=== PATIENT | female | born 1975 | race Caucasian/White ===

== ENCOUNTER 2021-07-06 12:18 | Emergency (ER) | payer OTHER, SELFPAY ==
[2021-07-06] VITALS (15 sets, daily range): BP systolic 122–158; BP diastolic 77–88; PULSE 56–76; RESP 12–26; TEMP 37; O2SAT 96–100
--- NOTE | 2021-07-06 12:15 | RT.EKG_ITS ---
APPROVED REPORT Exam: Resting ECG Reason for Exam: palpitations Patient Location: E HR:63 bpm ECG Measurements Heart Rate 63 AXIS KS 165 P 32 QRSd 115 QRS -8 QT 445 T 8 QTc 458 Conclusion Sinus rhythm...normal P axis, V-rate 60- 99 Nonspecific intraventricular conduction delay...QRSd >115mS, not LBBB/RBBB. Sinus. No STEMI. I have reviewed and interpreted ECG and agree with software generated interpretation.
[2021-07-06 13:00] LABS: Abs Immature Grans 0.03 10^3/uL (0.0-0.06); Absolute Basophil Count 0.04 10^3/uL (0.0-0.2); Absolute Eosinophil Count 0.18 10^3/uL (0.0-0.7); Absolute Lymphocyte Count 2.65 10^3/uL (1.2-3.4); Absolute Monocyte Count 0.53 10^3/uL (0.1-0.8); Absolute Neutrophil Count 6.23 10^3/uL (1.2-6.7); Basophils % 0.4; Eosinophils % 1.9; HCT 39.9 % (36.0-46.0); HGB 12.2 g/dL (11.2-15.7); Immature Grans % 0.3; Lymphocytes % 27.4; MCH 25.3 pg (27.0-33.0); MCHC 30.6 % (32.0-36.0); MCV 82.8 fL (80-95); MPV 9.3 fL (8.0-11.0); Monocytes % 5.5; Neutrophils % 64.5; Nucleated RBC 0 %; Platelet Count 293 10^3/uL (130-400); RBC 4.82 10^6/uL (3.93-5.22); RDW 14.3 % (11.7-14.6); RDW-SD 43.2 fL; WBC 9.66 10^3/uL (4.4-10.8)
[2021-07-06 13:15] LABS: ALT 21 U/L (14-59); AST 13 U/L (15-37); Albumin 3.8 g/dL (3.4-5.0); Alkaline Phosphatase 94 U/L (46-116); Anion Gap 8.5 mmol/L (3-11); BUN 9 mg/dL (7-18); Bilirubin, Total 0.4 mg/dL (0.2-1.0); CO2 25.5 mmol/L (21.0-32.0); CREATININE 0.9 mg/dL (0.55-1.02); Calcium 8.7 mg/dL (8.5-10.1); Chloride 103 mmol/L (98-107); Glucose 84 mg/dL (74-106); Magnesium 2.2 mg/dL (1.8-2.4); Potassium 3.4 mmol/L (3.5-5.1); Sodium 137 mmol/L (136-145); Total Protein 7.8 g/dL (6.4-8.2); Troponin I < 50 ng/L (<or=60)
--- NOTE | 2021-07-06 13:45 | ED.GENADUL_ITS ---
Discharge Plan Disposition Patient Disposition: HOME Condition: Improving Discharge Details Clinical Impression: Anxiety attack, Medication refill Primary Care Provider: Unknown,Unknown ED Provider: Edison Villanueva Home Meds and New Rx's Prescriptions: Continued tramadol 50 mg Tablet 50 mg PO QID 0RF gabapentin 100 mg Capsule 100 mg PO BID 0RF metoprolol succinate 25 mg Tablet Extended Release 24 Hr 10 mg PO BID 0RF calcium carbonate-vitamin D2 600 mg calcium- 200 unit Tablet 600 tab PO DAILY 0RF topiramate 15 mg Capsule, Sprinkle 15 mg PO BID 0RF calcium phos,dibas-vitamin D3 77-400 mg-unit Tablet 500 tab PO DAILY 0RF amlodipine 5 mg Tablet 7.5 mg PO DAILY Qty: 30 1RF lisinopril 10 mg Tablet 10 mg PO DAILY Qty: 30 1RF Discharge Instructions Instructions: Anxiety (ED) Additional Instructions: Please take medications as discussed and feel free to return to the emergency department for any new or worsening symptoms. Also if you notice any persistent symptoms that do not resolve quickly also return to the emergency department. At this time your EKG does not show emergent findings and your blood work was otherwise nondiagnostic. Your potassium was slightly low so please increase potassium rich foods in your diet. Keep your appointment with your primary care provider on the . Referrals: [facility] [[email or web address]] [Provider Group] Discharge Data Discharge Date/Time-TO BE ENTERED AT DEPARTURE: 07/06/21 14:10 Medical Decision Making Medical Records Medical records narrative: Patient presenting to the emergency department with chief complaint of palpitations. Patient reports this occurred 6 hours ago and feels persistent. She does report that she has recently moved here and is slowly running out of her medications due to inability to arrange follow-up with primary care locally. She has been weaning herself off of her tramadol and baclofen but has ran out of some of her blood pressure medication. She does state stress seem to have brought on situation this morning when he has history of anxiety. Physical exam is unremarkable for any acute findings. Cardiac exam shows mild hypertension but regular pulse. After further discussion I suspect this being more anxiety but will draw labs. Labs were drawn and show negative troponin and otherwise unremarkable work-up. Given duration of symptoms I do not feel that repeat troponin is needed given that I highly doubt ACS. Returned to reassess patient and states full resolution of symptoms and confirms my suspicion that this is anxiety as she states that with further thought she does state this feels more like anxiety. I do feel this is reassuring and that patient is safe for discharge. Blood pressure medication was refilled and given that patient wants to wean off of baclofen and tramadol did discuss safe weaning of medication. Close monitoring of symptoms along with return and follow-up precautions were discussed. Lab Data Labs: Laboratory Tests Range/Units 07/06/21 07/06/21 12:38 12:38 WBC (4.4-10.8) 10^3/uL 9.66 RBC (3.93-5.22) 10^6/uL 4.82 Hgb (11.2-15.7) g/dL 12.2 Hct (36.0-46.0) % 39.9 MCV (80-95) fL 82.8 MCH (27.0-33.0) pg 25.3 L MCHC (32.0-36.0) % 30.6 L RDW (11.7-14.6) % 14.3 Plt Count (130-400) 10^3/uL 293 MPV (8.0-11.0) fL 9.3 Immature Gran % 0.3 Neutrophils % 64.5 Lymphocytes % 27.4 Monocytes % 5.5 Eosinophils % 1.9 Basophils % 0.4 Nucleated RBC % % 0 Absolute Neutrophils (1.2-6.7) 10^3/uL 6.23 Absolute Lymphocytes (1.2-3.4) 10^3/uL 2.65 Absolute Monocytes (0.1-0.8) 10^3/uL 0.53 Absolute Eosinophils (0.0-0.7) 10^3/uL 0.18 Absolute Basophils (0.0-0.2) 10^3/uL 0.04 Sodium (136-145) mmol/L 137 Potassium (3.5-5.1) mmol/L 3.4 L Chloride (98-107) mmol/L 103 Carbon Dioxide (21.0-32.0) mmol/L 25.5 Anion Gap (3-11) mmol/L 8.5 BUN (7-18) mg/dL 9 Creatinine (0.55-1.02) mg/dL 0.9 Estimated GFR/1.73 m2 (mL/min/1.73m2) >= 60.00 Glucose (74-106) mg/dL 84 Calcium (8.5-10.1) mg/dL 8.7 Magnesium (1.8-2.4) mg/dL 2.2 Total Bilirubin (0.2-1.0) mg/dL 0.4 AST (15-37) U/L 13 L ALT (14-59) U/L 21 Alkaline Phosphatase (46-116) U/L 94 Troponin I (<or=60) ng/L < 50 Total Protein (6.4-8.2) g/dL 7.8 Albumin (3.4-5.0) g/dL 3.8 ECG Data Interpretation: Please see attending physician's note for full interpretation of EKG. Sinus rhythm with no signs of STEMI was noted. HPI General Mode of arrival: ambulatory . Date/Time Provider Initiated Documentation: 07/06/21 12:32 . Limitations to Documentation: no limitations . Information obtained by: patient . History of Present Illness 45 year old F presents to the emergency department with the chief complaint of palpations, described as moderate, Quality is described as other (denies pain), Patient reports no radiation. Patient started experiencing this hour(s) (6) and it has been constant. improves with No relieving factors improve symptom(s), Medication worsens symptoms (withdrawl? ) and Other factors that worsen symptoms (Stress) . Patient notes denies chest pain and shortness of breath. Patient did receive the following treatments prior to arrival, none Related Data Home Medications Medication Instructions Recorded Confirmed amlodipine 5 mg tablet 7.5 mg PO DAILY #30 tab 07/06/21 calcium carb-ergocalciferol (vit 600 tab PO DAILY 07/06/21 07/06/21 D2) 600 mg calcium-200 unit tablet calcium phosphate,dibasic 77 500 tab PO DAILY 07/06/21 07/06/21 mg-vitamin D3 400 unit tablet gabapentin 100 mg capsule 100 mg PO BID 07/06/21 07/06/21 lisinopril 10 mg tablet 10 mg PO DAILY #30 tab 07/06/21 metoprolol succinate 25 mg 10 mg PO BID 07/06/21 07/06/21 tablet,extended release 24 hr topiramate 15 mg sprinkle capsule 15 mg PO BID 07/06/21 07/06/21 tramadol 50 mg tablet 50 mg PO QID 07/06/21 07/06/21 Previous Rx's Medication Instructions Recorded amlodipine 5 mg tablet 7.5 mg PO DAILY #30 tab 07/06/21 lisinopril 10 mg tablet 10 mg PO DAILY #30 tab 07/06/21 Allergies Allergy/AdvReac Type Severity Reaction Status Date / Time Sulfa (Sulfonamide AdvReac Unverified 07/06/21 12:31 Antibiotics) General Stated Complaint: Palpitatns DELL: 2 Review of Systems Constitutional Constitutional: Denies chills, Denies fever(s) and Denies malaise Cardiovascular Cardiovascular: Reports as per HPI, Denies chest pain, Denies chest pain with activity, Denies syncope, Reports rapid heart rate, Denies irregular heart rhythm, Denies lightheadedness, Reports palpitations and Denies dyspnea Respiratory Respiratory: Denies cough, Denies hemoptysis and Denies dyspnea Gastrointestinal Gastrointestinal: Denies abdominal pain, Denies nausea and Denies vomiting Musculoskeletal Musculoskeletal: Reports tingling Neurologic Neurologic: Denies syncope and Reports tingling Psychiatric Psychiatric: Denies anxiety Endocrine Endocrine: Denies cold intolerance, Denies heat intolerance and Reports palpitations PFSH All Active Problems (Updated 07/06/21 @ 13:49 by Edison Villanueva NP) Anxiety attack (Acute) Medication refill (Acute) Social History Smoking/Tobacco Use Status: Current every day Tobacco Type: cigarettes Smoking risk assessment performed?: Yes Alcohol Intake: never Drug use: Never Substance use type: does not use Do you feel safe at home: Yes Do you feel safe in your relationship?: Yes Exam Const General: cooperative, no acute distress, not diaphoretic and not ill appearing Nutritional Appearance: overweight Orientation: alert, awake and oriented x3 Limitations: mental status not altered Neck Neck: normal visual inspection, full ROM, trachea midline, supple and no anterior neck swelling Thyroid: thyroid normal Carotids: normal carotid upstroke and no bruits Resp Effort & Inspection: normal respiratory effort and able to speak in complete sentences Auscultation: clear to auscultation bilaterally Cardio Palpation: normal PMI Rate: regular rate Rhythm: regular rhythm Heart Sounds: S1 normal, S2 normal, no click, no gallops, no murmurs and no rubs Bruits: no abdominal aortic bruits and no carotid bruits Pulses: radial pulses present bilaterally 2+ GI Inspection: normal to inspection Palpation: soft, no aortic enlargement, no pulsatile masses and nontender Auscultation: normal bowel sounds Skin General skin exam: no rashes or lesions noted Neuro General: patient alert, patient awake, patient oriented x3, tone normal and moves all extremities Course Vital Signs Vital signs: Vital Signs Temperature 37.0 C 07/06/21 12:25 Pulse 73 07/06/21 12:25 Respiratory Rate 24 07/06/21 12:25 Pulse Oximetry 100 07/06/21 12:25 Temperature 37.0 C 07/06/21 12:25 Temperature Source Temporal Artery Scan 07/06/21 12:25 Pulse 73 07/06/21 12:25 Respiratory Rate 24 07/06/21 12:25 Respiratory Effort Non-Labored 07/06/21 12:32 Blood Pressure Position Supine 07/06/21 12:25 Pulse Oximetry 100 07/06/21 12:25 Oxygen Delivery Method Room Air 07/06/21 12:25 Oxygen Flow Rate 0 07/06/21 12:25 Pain Level 0 07/06/21 12:25 Lab/Test Results Lab/Test Results: Laboratory Tests Range/Units 07/06/21 07/06/21 12:38 12:38 WBC (4.4-10.8) 10^3/uL 9.66 RBC (3.93-5.22) 10^6/uL 4.82 Hgb (11.2-15.7) g/dL 12.2 Hct (36.0-46.0) % 39.9 MCV (80-95) fL 82.8 MCH (27.0-33.0) pg 25.3 L MCHC (32.0-36.0) % 30.6 L RDW (11.7-14.6) % 14.3 Plt Count (130-400) 10^3/uL 293 MPV (8.0-11.0) fL 9.3 Immature Gran % 0.3 Neutrophils % 64.5 Lymphocytes % 27.4 Monocytes % 5.5 Eosinophils % 1.9 Basophils % 0.4 Nucleated RBC % % 0 Absolute Neutrophils (1.2-6.7) 10^3/uL 6.23 Absolute Lymphocytes (1.2-3.4) 10^3/uL 2.65 Absolute Monocytes (0.1-0.8) 10^3/uL 0.53 Absolute Eosinophils (0.0-0.7) 10^3/uL 0.18 Absolute Basophils (0.0-0.2) 10^3/uL 0.04 Sodium (136-145) mmol/L 137 Potassium (3.5-5.1) mmol/L 3.4 L Chloride (98-107) mmol/L 103 Carbon Dioxide (21.0-32.0) mmol/L 25.5 Anion Gap (3-11) mmol/L 8.5 BUN (7-18) mg/dL 9 Creatinine (0.55-1.02) mg/dL 0.9 Estimated GFR/1.73 m2 (mL/min/1.73m2) >= 60.00 Glucose (74-106) mg/dL 84 Calcium (8.5-10.1) mg/dL 8.7 Magnesium (1.8-2.4) mg/dL 2.2 Total Bilirubin (0.2-1.0) mg/dL 0.4 AST (15-37) U/L 13 L ALT (14-59) U/L 21 Alkaline Phosphatase (46-116) U/L 94 Troponin I (<or=60) ng/L < 50 Total Protein (6.4-8.2) g/dL 7.8 Albumin (3.4-5.0) g/dL 3.8
== END 2021-07-06 14:10 | disposition home or self-care (01) ==
PROVIDERS: Emergency Provider Nurse Practitioner Family
DX: F41.9 Anxiety disorder, unspecified (principal); R00.2 Palpitations; R06.02 Shortness of breath
CPT/HCPCS: 80053; 93005; 99283; 83735; 84484; 85025; 93010

== ENCOUNTER 2021-11-07 15:11 | Outpatient (REF) | payer OTHER, SELFPAY ==
[2021-11-07 14:05] LABS: HCT 39.8 % (36.0-46.0); HGB 12.4 g/dL (11.2-15.7); MCH 24.6 pg (27.0-33.0); MCHC 31.2 % (32.0-36.0); MCV 79 fL (80-95); MPV 9.6 fL (8.0-11.0); Platelet Count 280 10^3/uL (130-400); RBC 5.05 10^6/uL (3.93-5.22); RDW 16.8 % (11.7-14.6); RDW-SD 47.7 fL; WBC 8.36 10^3/uL (4.4-10.8)
[2021-11-07 14:44] LABS: ALT 13 U/L (14-59); AST 22 U/L (15-37); Albumin 3.5 g/dL (3.4-5.0); Alkaline Phosphatase 91 U/L (46-116); Anion Gap 10.7 mmol/L (3-11); BUN 9 mg/dL (7-18); Bilirubin, Total 0.2 mg/dL (0.2-1.0); CO2 21.3 mmol/L (21.0-32.0); CREATININE 0.8 mg/dL (0.55-1.02); Calcium 8.3 mg/dL (8.5-10.1); Calculated LDL 113 mg/dL (<100); Chloride 109 mmol/L (98-107); Cholesterol 180 mg/dL (<200); Glucose 98 mg/dL (74-106); HDL Cholesterol 42 mg/dL (40-60); Sodium 141 mmol/L (136-145); TSH (W/Ref FT4) 3.64 uIU/mL (0.36-3.74); Triglyceride 125 mg/dL (<150)
== END 2021-11-07 15:12 | disposition home or self-care (01) ==
LOC: NCHCN 15:11
PROVIDERS: Visit Provider Family Medicine
DX: I10 Essential (primary) hypertension (principal); F33.1 Major depressive disorder, recurrent, moderate; G89.4 Chronic pain syndrome
CPT/HCPCS: 80053; 80061; 85027; 84443

== ENCOUNTER 2021-12-16 18:51 | Emergency (ER) | payer OTHER, SELFPAY ==
[2021-12-16] VITALS (58 sets, daily range): BP systolic 116–158; BP diastolic 75–114; PULSE 59–78; RESP 11–21; TEMP 37.2; O2SAT 96–100
--- NOTE | 2021-12-16 18:45 | RT.EKG_ITS ---
APPROVED REPORT Exam: Resting ECG Reason for Exam: chest pain Patient Location: E HR:72 bpm ECG Measurements Heart Rate 72 AXIS NE 152 P 36 QRSd 111 QRS 0 QT 429 T 3 QTc 469 Conclusion Sinus rhythm...normal P axis, V-rate 60- 99
--- NOTE | 2021-12-16 19:15 | DI.RAD_ITS ---
Exam(s) XR CHEST 2V PA LATERAL EXAM: XR CHEST 2V PA LATERAL CLINICAL HISTORY: Chest Pain TECHNIQUE: 2D digital imaging was performed of the chest. Two images were obtained. PA and lateral views were obtained. COMPARISON: No exams were available for comparison FINDINGS: MEDIASTINUM: Normal. HEART: Normal. PULMONARY VASCULATURE: Normal. LUNGS: There is a nodule in the right middle lobe probably reflecting a calcified granuloma. The travis gs are otherwise clear. PLEURAL SPACE: No pleural effusion or pneumothorax. BONE:Within normal limits for the patient's age. OTHER FINDINGS:Normal. IMPRESSION: 1. No acute pulmonary findings. 2. Probable calcified granuloma in the right middle lobe. Noncontrast CT scan of the chest may be ob tained for further confirmation. DATA REPOSITORY: RADIATION DOSE DELIVERED:
[2021-12-16 19:20] LABS: Abs Immature Grans 0.01 10^3/uL (0.0-0.06); Absolute Basophil Count 0.07 10^3/uL (0.0-0.2); Absolute Eosinophil Count 0.15 10^3/uL (0.0-0.7); Absolute Monocyte Count 0.55 10^3/uL (0.1-0.8); Absolute Neutrophil Count 4.52 10^3/uL (1.2-6.7); Basophils % 0.8; Eosinophils % 1.7; HCT 40.9 % (36.0-46.0); HGB 12.8 g/dL (11.2-15.7); Immature Grans % 0.1; Lymphocytes % 40.4; MCH 24.4 pg (27.0-33.0); MCHC 31.3 % (32.0-36.0); MCV 78 fL (80-95); MPV 8.9 fL (8.0-11.0); Monocytes % 6.2; Neutrophils % 50.8; Platelet Count 305 10^3/uL (130-400); RBC 5.24 10^6/uL (3.93-5.22); RDW 17.1 % (11.7-14.6); RDW-SD 48.2 fL
--- NOTE | 2021-12-16 19:28 | W.ED.GENAD ---
Discharge Plan Disposition Patient Disposition: HOME Condition: Stable Discharge Details Clinical Impression: Chest pain Primary Care Provider: Unknown,Unknown ED Provider: Ellyn Westbrook Home Meds and New Rx's Prescriptions: Continued tramadol 50 mg Tablet 50 mg PO QID gabapentin 100 mg Capsule 100 mg PO BID metoprolol succinate 25 mg Tablet Extended Release 24 Hr 10 mg PO BID calcium carbonate-vitamin D2 600 mg calcium- 200 unit Tablet 600 tab PO DAILY topiramate 15 mg Capsule, Sprinkle 15 mg PO BID calcium phos,dibas-vitamin D3 77-400 mg-unit Tablet 500 tab PO DAILY amlodipine 5 mg Tablet 7.5 mg PO DAILY Qty: 30 1RF lisinopril 10 mg Tablet 10 mg PO DAILY Qty: 30 1RF venlafaxine 75 mg Tablet 75 mg PO DAILY meloxicam 7.5 mg Tablet 7.5 mg PO DAILY Discharge Instructions Instructions: Chest Pain (ED) Additional Instructions: At this time it does not appear that You are having an acute cardiac event. However I would like you to be seen by cardiology and for an outpatient stress test which was ordered. Please take a chewable baby aspirin daily. Please return to the ER for any worsening chest pain chest, shortness of breath or any concerns. Follow up with primary care provider in 3-5 days. Return to ED sooner if any worsening or concerns. Increase oral fluids. Referrals: Parminder Rivera MD [ NON-[facility] STAFF PHYSICIAN] - 5 days Samaria Jeronimo MD [ [facility] STAFF PHYSICIAN] - 2 weeks (Stress test results, and Angina) Medical Decision Making 45-year-old female presents to the ER with chief complaint of left-sided chest pain that began this morning followed by intermittent chest tightening which she describes as a bandlike around her chest with radiation down her left arm. EKG was reviewed by Dr. Dixon ER attending, old EKG available for review, no significant change. Please see his official report. Cardiac work-up ordered including serial troponins, chest x-ray, proBNP due to leg swelling, D-dimer. 324 mg aspirin. Differential diagnosis includes but not limited to coronary artery disease, OH, NSTEMI, CHF, PE, anxiety, GERD 2030: Patient reevaluation, she reports no recurrent CP during her stay here. Discussed negative work-up thus far. Initial troponin within normal limits, D-dimer within normal limits. Patient does have hypovolemic hypochromic anemia which appears to be chronic. Hemoglobin hematocrit within normal limits Patient has remained chest pain-free during her stay here, serial troponins within normal limits. No significant changes to ECG. Patient's heart score is approximately 3-4. At this time I do feel it is safe for patient to be discharged home we will place a referral to cardiology and order a stress test I did discuss patient taking chewable baby aspirin daily she verbalized understanding. I discussed strict return instructions and follow-up care. This text was generated using [employer] system, please disregard any oddities of phrase or misspellings. Medical Records Medical records reviewed: Yes I reviewed the patient's medical records. Imaging Data Radiologic Study: Imaging: X-Ray Radiologist's impression: Imaging protocol: Radiologic exam of the chest. Views: 2 views. COMPARISON: No relevant prior studies available. FINDINGS: Lungs: Right lower lobe calcified granuloma. Pleural spaces: Unremarkable. No pleural effusion. No pneumothorax. Heart/Mediastinum: Unremarkable. No cardiomegaly. Vasculature: Mild aortic ectasia. Bones/joints: Unremarkable. IMPRESSION: Old granulomatous change. No evidence for acute abnormality in the chest. Thank you for allowing us to participate in the care of your patient. Dictated and Authenticated by: Annmarie Gu MD Lab Data Lab results reviewed: Yes I reviewed the patient's lab results. Labs: Laboratory Tests Range/Units 12/16/21 12/16/21 12/16/21 17:13 19:13 19:13 WBC (4.4-10.8) 10^3/uL 8.90 RBC (3.93-5.22) 10^6/uL 5.24 H Hgb (11.2-15.7) g/dL 12.8 Hct (36.0-46.0) % 40.9 MCV (80-95) fL 78 L MCH (27.0-33.0) pg 24.4 L MCHC (32.0-36.0) % 31.3 L RDW (11.7-14.6) % 17.1 H Plt Count (130-400) 10^3/uL 305 MPV (8.0-11.0) fL 8.9 Immature Gran % 0.1 Neutrophils % 50.8 Lymphocytes % 40.4 Monocytes % 6.2 Eosinophils % 1.7 Basophils % 0.8 Nucleated RBC % (0.0-0.3) % 0.0 Absolute Neutrophils (1.2-6.7) 10^3/uL 4.52 Absolute Lymphocytes (1.2-3.4) 10^3/uL 3.60 H Absolute Monocytes (0.1-0.8) 10^3/uL 0.55 Absolute Eosinophils (0.0-0.7) 10^3/uL 0.15 Absolute Basophils (0.0-0.2) 10^3/uL 0.07 D-Dimer (<500) ng/mlFEU Sodium (136-145) mmol/L 140 Potassium (3.5-5.1) mmol/L 3.6 Chloride (98-107) mmol/L 106 Carbon Dioxide (21.0-32.0) mmol/L 27.5 Anion Gap (3-11) mmol/L 6.5 BUN (7-18) mg/dL 9 Creatinine (0.55-1.02) mg/dL 0.9 Estimated GFR/1.73 m2 (mL/min/1.73m2) >= 60.00 Glucose (74-106) mg/dL 83 Calcium (8.5-10.1) mg/dL 8.8 Magnesium (1.8-2.4) mg/dL 2.3 Total Bilirubin (0.2-1.0) mg/dL 0.2 AST (15-37) U/L 11 L ALT (14-59) U/L 21 Alkaline Phosphatase (46-116) U/L 81 Troponin I (<or=60) ng/L < 50 NT-Pro-B Natriuret Pep (<300) pg/mL 139 Total Protein (6.4-8.2) g/dL 7.8 Albumin (3.4-5.0) g/dL 3.6 Range/Units 12/16/21 12/16/21 19:13 22:19 WBC (4.4-10.8) 10^3/uL RBC (3.93-5.22) 10^6/uL Hgb (11.2-15.7) g/dL Hct (36.0-46.0) % MCV (80-95) fL MCH (27.0-33.0) pg MCHC (32.0-36.0) % RDW (11.7-14.6) % Plt Count (130-400) 10^3/uL MPV (8.0-11.0) fL Immature Gran % Neutrophils % Lymphocytes % Monocytes % Eosinophils % Basophils % Nucleated RBC % (0.0-0.3) % Absolute Neutrophils (1.2-6.7) 10^3/uL Absolute Lymphocytes (1.2-3.4) 10^3/uL Absolute Monocytes (0.1-0.8) 10^3/uL Absolute Eosinophils (0.0-0.7) 10^3/uL Absolute Basophils (0.0-0.2) 10^3/uL D-Dimer (<500) ng/mlFEU 295 Sodium (136-145) mmol/L Potassium (3.5-5.1) mmol/L Chloride (98-107) mmol/L Carbon Dioxide (21.0-32.0) mmol/L Anion Gap (3-11) mmol/L BUN (7-18) mg/dL Creatinine (0.55-1.02) mg/dL Estimated GFR/1.73 m2 (mL/min/1.73m2) Glucose (74-106) mg/dL Calcium (8.5-10.1) mg/dL Magnesium (1.8-2.4) mg/dL Total Bilirubin (0.2-1.0) mg/dL AST (15-37) U/L ALT (14-59) U/L Alkaline Phosphatase (46-116) U/L Troponin I (<or=60) ng/L < 50 NT-Pro-B Natriuret Pep (<300) pg/mL Total Protein (6.4-8.2) g/dL Albumin (3.4-5.0) g/dL HPI General Mode of arrival: ambulatory. Date/Time Provider Initiated Documentation: 12/16/21 18:55. Limitations to Documentation: no limitations. Information obtained by: patient, RN notes reviewed and old records reviewed. HPI Narrative: 45-year-old female presents to the ER with chief complaint of left-sided chest pain that began this morning followed by intermittent chest tightening which she describes as a bandlike around her chest with radiation down her left arm. She reports blood pressure Was elevated 190/100 at 3:30 PM. She reports some nausea, mild shortness of breath denies any cough. She denies any chest pain upon initial exam. Past medical history includes hypertension,depression, Rajni-Danlos syndrome. Related Data Home Medications Medication Instructions Recorded Confirmed amlodipine 5 mg tablet 7.5 mg PO DAILY #30 tabs 07/06/21 12/16/21 calcium carb-ergocalciferol (vit 600 tab PO DAILY 07/06/21 12/16/21 D2) 600 mg calcium-200 unit tablet calcium phosphate,dibasic 77 500 tab PO DAILY 07/06/21 12/16/21 mg-vitamin D3 400 unit tablet gabapentin 100 mg capsule 100 mg PO BID 07/06/21 12/16/21 lisinopril 10 mg tablet 10 mg PO DAILY #30 tabs 07/06/21 12/16/21 metoprolol succinate 25 mg 10 mg PO BID 07/06/21 12/16/21 tablet,extended release 24 hr topiramate 15 mg sprinkle capsule 15 mg PO BID 07/06/21 12/16/21 tramadol 50 mg tablet 50 mg PO QID 07/06/21 12/16/21 meloxicam 7.5 mg tablet 7.5 mg PO DAILY 12/16/21 12/16/21 venlafaxine 75 mg tablet 75 mg PO DAILY 12/16/21 12/16/21 Previous Rx's Medication Instructions Recorded amlodipine 5 mg tablet 7.5 mg PO DAILY #30 tabs 07/06/21 lisinopril 10 mg tablet 10 mg PO DAILY #30 tabs 07/06/21 Allergies Allergy/AdvReac Type Severity Reaction Status Date / Time Sulfa (Sulfonamide AdvReac Unverified 12/16/21 19:00 Antibiotics) General Stated Complaint: Chest Pain DELL: 2 Review of Systems All systems reviewed & are unremarkable except as noted in HPI and below Cardiovascular Cardiovascular: Denies acrocyanosis, Reports chest pain, Reports chest pain at rest, Reports leg edema (Intermittently no edema noted on exam), Reports radiating jaw, neck or arm pain and Reports dyspnea Respiratory Respiratory: Denies change in phlegm color, Denies cough, Denies hemoptysis, Reports dyspnea and Denies wheezing Gastrointestinal Gastrointestinal: Denies abdominal pain, Denies hematochezia, Reports heartburn, Reports diarrhea, Reports nausea and Denies vomiting Allergic/Immunologic Allergic/Immunologic: Denies wheezing PFSH All Active Problems (Updated 12/16/21 @ 23:16 by Ellyn Westbrook NP) Chest pain (Acute) Hypertension (Chronic) Rajni-Danlos syndrome (Acute) Social History Smoking/Tobacco Use Status: Current every day Tobacco Type: cigarettes Smoking risk assessment performed?: Yes Alcohol Intake: never Drug use: Never Substance use type: does not use Do you feel safe at home: Yes Do you feel safe in your relationship?: Yes Exam Narrative Exam Narrative: Constitutional: Alert and oriented x3. Appears stated age. Obese l body habitus. Head: Normocephalic, no trauma. Eyes: Pupils PERRL, Red reflex noted, EOM's intact. Eyelids symmetrical without lesions, discharge, or swelling. ENT: Bilateral TM's WNL, External ear normal to inspection, no mastoid TTP, swelling, or erythema, Nasal turbinates WNL, no nasal discharge. Normal dentition, Posterior pharynx WNL, no exudate. Chest: RRR, Normal S1, S2, distal pulses intact. Resp: Lungs clear to auscultation bilaterally, no wheezes, rales, or rhonchi. Abdomen: Soft, non-distended, Normoactive bowel sounds all 4 quads. Musculoskeletal: Normal gait, 5/5 strength to all four extremities. Skin: No suspicious rashes or lesions. Capillary refill less than 2 sec. Neurologic: Cranial nerves II-XII intact. Alert and oriented x 3. Motor: No deficits noted. Sensory: Intact bilaterally all 4 extremities. Reflexes: DTR's intact bilaterally.. Hematologic/Lymphatic: No ecchymosis, no lymphadenopathy. Course Vital Signs Vital signs: Vital Signs Temperature 37.2 C 12/16/21 18:54 Pulse 77 12/16/21 18:54 Respiratory Rate 18 12/16/21 18:54 Pulse Oximetry 100 12/16/21 18:54 Temperature 37.2 C 12/16/21 18:54 Temperature Source Skin 12/16/21 18:54 Pulse 72 12/16/21 19:16 Pulse 71 12/16/21 19:16 Respiratory Rate 14 12/16/21 19:16 Respiratory Effort Non-Labored 12/16/21 19:03 Respiratory Depth Normal 12/16/21 18:58 Respiratory Pattern Normal 12/16/21 18:58 Blood Pressure 148/98 H 12/16/21 19:16 Blood Pressure Mean 110 12/16/21 19:16 Blood Pressure Position Supine 12/16/21 18:54 Pulse Oximetry 98 12/16/21 19:16 Oxygen Delivery Method Room Air 12/16/21 18:54 Oxygen Flow Rate 0 12/16/21 18:54 Pain Level 1 12/16/21 18:58 Lab/Test Results Lab/Test Results: Laboratory Tests Range/Units 12/16/21 19:13 WBC (4.4-10.8) 10^3/uL 8.90 RBC (3.93-5.22) 10^6/uL 5.24 H Hgb (11.2-15.7) g/dL 12.8 Hct (36.0-46.0) % 40.9 MCV (80-95) fL 78 L MCH (27.0-33.0) pg 24.4 L MCHC (32.0-36.0) % 31.3 L RDW (11.7-14.6) % 17.1 H Plt Count (130-400) 10^3/uL 305 MPV (8.0-11.0) fL 8.9 Immature Gran % 0.1 Neutrophils % 50.8 Lymphocytes % 40.4 Monocytes % 6.2 Eosinophils % 1.7 Basophils % 0.8 Nucleated RBC % (0.0-0.3) % 0.0 Absolute Neutrophils (1.2-6.7) 10^3/uL 4.52 Absolute Lymphocytes (1.2-3.4) 10^3/uL 3.60 H Absolute Monocytes (0.1-0.8) 10^3/uL 0.55 Absolute Eosinophils (0.0-0.7) 10^3/uL 0.15 Absolute Basophils (0.0-0.2) 10^3/uL 0.07
[2021-12-16] MEDS: Aspirin 81 MG CHEW 324 MG CH (19:39)
[2021-12-16 19:50] LABS: ALT 21 U/L (14-59); AST 11 U/L (15-37); Albumin 3.6 g/dL (3.4-5.0); Alkaline Phosphatase 81 U/L (46-116); Anion Gap 6.5 mmol/L (3-11); BUN 9 mg/dL (7-18); Bilirubin, Total 0.2 mg/dL (0.2-1.0); CO2 27.5 mmol/L (21.0-32.0); CREATININE 0.9 mg/dL (0.55-1.02); Calcium 8.8 mg/dL (8.5-10.1); Chloride 106 mmol/L (98-107); Glucose 83 mg/dL (74-106); Magnesium 2.3 mg/dL (1.8-2.4); Potassium 3.6 mmol/L (3.5-5.1); Sodium 140 mmol/L (136-145); Total Protein 7.8 g/dL (6.4-8.2); Troponin I < 50 ng/L (<or=60)
[2021-12-16 19:53] LABS: NT-proBNP 139 pg/mL (<300)
[2021-12-16 20:07] LABS: D-Dimer 295 ng/mlFEU (<500)
--- NOTE | 2021-12-16 20:11 | DI.VRAD_ITS ---
PROCEDURE INFORMATION: Exam: XR Chest Exam date and time: 12/16/2021 7:55 PM Age: 45 years old Clinical indication: Chest wall pain; Additional info: Chest pain TECHNIQUE: Imaging protocol: Radiologic exam of the chest. Views: 2 views. COMPARISON: No relevant prior studies available. FINDINGS: Lungs: Right lower lobe calcified granuloma. Pleural spaces: Unremarkable. No pleural effusion. No pneumothorax. Heart/Mediastinum: Unremarkable. No cardiomegaly. Vasculature: Mild aortic ectasia. Bones/joints: Unremarkable. IMPRESSION: Old granulomatous change. No evidence for acute abnormality in the chest. Dictated and Authenticated by: Annmarie Gu MD. Ordering:MINESH Ragland MD
--- NOTE | 2021-12-16 20:15 | RT.EKG_ITS ---
APPROVED REPORT Exam: Resting ECG Reason for Exam: Repeat Patient Location: E HR:61 bpm ECG Measurements Heart Rate 61 AXIS OH 159 P 48 QRSd 117 QRS 7 QT 463 T 3 QTc 467 Conclusion Sinus rhythm...normal P axis, V-rate 60- 99 Physician: no stemi, t waves are unchanged from earlier ekg
[2021-12-16 22:51] LABS: Troponin I < 50 ng/L (<or=60)
[2021-12-17] VITALS: PULSE 68; RESP 13; O2SAT 97
[2021-12-17 00:01] VITALS: BP 126/87; PULSE 64; PULSE 65; RESP 16; O2SAT 96
[2021-12-17 00:10] VITALS: PULSE 76; RESP 12; O2SAT 97
--- NOTE | 2021-12-17 00:12 | NUR.NOTE ---
Regular Exercise Treadmill Test req faxed to DI, referral to [facility] Cardiology faxed for appt to be scheduled after Stress Test.Nursing Note:
[2021-12-17 00:14] VITALS: TEMP 36.8
[2021-12-17 00:23] VITALS: BP 126/87; PULSE 64; RESP 12; TEMP 36.8; O2SAT 97
== END 2021-12-17 00:25 | disposition home or self-care (01) ==
PROVIDERS: Emergency Provider Registered Nurse Emergency
DX: R07.89 Other chest pain (principal); R22.40 Localized swelling, mass and lump, unspecified lower limb; D50.9 Iron deficiency anemia, unspecified; E66.9 Obesity, unspecified; I10 Essential (primary) hypertension; F32.9 Major depressive disorder, single episode, unspecified; F17.210 Nicotine dependence, cigarettes, uncomplicated; Z79.899 Other long term (current) drug therapy
CPT/HCPCS: 36415; 80053; 81025; 93005; 99284; 71046; 83735; 83880; 84484; 85025; 85379; 93010; 99285

== ENCOUNTER → 2022-01-02 00:03 | Outpatient (CLI) | payer OTHER, SELFPAY ==
--- NOTE | 2022-01-02 13:02 | DI.MAMMO_ITS ---
Exam(s) MAMMO SCREENING EXAM: MAMMO SCREENING CLINICAL HISTORY: SCREENING, Z12.31 TECHNIQUE: Mammograms were interpreted according to the usual protocol including computer analysis w [employer] CAD system, tomosynthesis and C-view imaging. COMPARISON: [facility] from 04/16/2020 from [facility] FINDINGS: The breasts are composed of scattered fibroglandular densities, Breast Density category B. No suspicious masses or suspicious microcalcifications are seen. No skin thickening or abnormal axillary lymph nodes are seen. There has been no significant change from prior exams. IMPRESSION: BI-RADS Category 1, Negative mammogram Yearly screening mammography is recommended. Breast Density - Category B, scattered fibroglandular densities. A negative radiographic report should not delay biopsy if a dominant or clinically suspicious mass is present. Up to ten percent of cancers are not identified on mammography. A negative report may reinforce clinical impression. Adenosis and dense breasts may obscure an underlying neoplasm. False positive reports average 6 to 10%. Patient will receive a letter notifying them of these results.
== END ==
PROVIDERS: Visit Provider Family Medicine
DX: Z12.31 Encounter for screening mammogram for malignant neoplasm of breast (principal)
CPT/HCPCS: 77063; 77067

== ENCOUNTER → 2022-01-06 00:53 | Outpatient (CLI) | payer OTHER, SELFPAY ==
--- NOTE | 2022-01-06 09:00 | ETT_ITS ---
APPROVED REPORT Exam: Exercise Treadmill Patient Location: Out-Patient Room/Bed: Ordering Provider:JENNIFER MISHRA, Contact Number: [phone] BMI: 38.68 Baseline Rhythm: Sinus Rhythm Comment: Resting ST abnormality lead III Indications: Angina Medical History Medical History: Hypertension, obesity, mild asthma, current tobacco use, chest pain Cardiac Medications: Metoprolol succinate, amlodipine, lisinopril, gabapentin, meloxicam, venlafaxine Allergies: Sulfa antibiotics Cardiac Risk Factors: Hypertension, obesity, asthma, smoker (current), family hx Previous Cardiac Procedures: None Pretest Chest Pain Characteristics: None Exercise History: Sedentary Physical Disabilities: None Lung Sounds: Clear to auscultation Heart Sounds: Regular Stress Test Details Test: Exercise stress testing was performed using a Antonio protocol. Rest Stress HR Resting HR Supine: 75 bpm Max Heart Rate (APMHR): 174 bpm Resting HR Standin bpm Target HR (85% APMHR): 147 bpm Max HR Achieved: 140 bpm % of APMHR: 80 Recovery HR: 79 bpm HR response to stress: Normal HR response to stress Comment: Nondiagnostic- THR not achieved. Metoprolol succinate last dose was yesterday PM. BP Resting BP Supine: 124/88 mmHg Resting BP Standin/90 mmHg Max BP: 176/82 mmHg Recovery BP: 114/78 mmHg BP response to stress: Normal blood pressure response to stress. ECG Resting ECG: Sinus Rhythm Ectopy: None Comment: Resting ST abnormality lead III Stress ECG: Sinus Tachycardia ST Change: Nondiagnostic low heart rate, No significant ST segment changes noted Arrhythmia: None Recovery ECG: Sinus Rhythm Recovery ST Change: Nondiagnostic low heart rate, No significant ST segment changes noted Recovery Arrhythmia: None Clinical Reason for Termination: Dyspnea Stress Symptoms: General Fatigue, Dyspnea Exercise duration: 5 min01 sec Highest Stage Reached: Stage 2: 2.5 mph at 12% grade. Exercise capacity: 7.05 METs Angina Score: None Britton Treadmill Score: 4.8 Rate Pressure Product: 20800 Stress ECG Conclusion 1. Resting electrocardiogram was within normal limits 2. Patient exercised on the Antonio protocol completed a workload of 7.05 METS, stopping due to fatigue and dyspnea. No chest pain was described 3. Normal hemodynamic response to exercise. Peak heart rate achieved was 80% of predicted for age 4. At that level of heart rate and workload, there was no electrocardiographic evidence of myocardial ischemia 5. There were no dysrhythmias Britton Treadmill Score is 4.8 which is Moderate risk. Stress Test Summary STAGE Time (mins) Speed (mph) Grade (%) HR BP SpO2 SYMPTOMS METS Supine 75 124/88 Standing 83 128/90 98% 1 3 1.7 10 118 132/82 96% 4.5 2 6 2.5 12 138 96% Severe SOB 7 1 min recovery 118 176/82 98% Moderate SOB 3 min recovery 83 140/80 98% Mild SOB 6 min recovery 79 114/78 98% SOB resolved Pt reported sudden severe SOB during second stage of Antonio protocol and requested termination of test . SOB resolved by minute 4 of recovery.
== END ==
PROVIDERS: Visit Provider Registered Nurse Emergency
DX: I20.9 Angina pectoris, unspecified (principal)
CPT/HCPCS: 93017

== ENCOUNTER 2022-03-13 16:01 | Outpatient (REF) | payer OTHER, SELFPAY ==
[2022-03-13 19:18] LABS: Abs Immature Grans 0.02 10^3/uL (0.0-0.06); Absolute Basophil Count 0.04 10^3/uL (0.0-0.2); Absolute Eosinophil Count 0.15 10^3/uL (0.0-0.7); Absolute Lymphocyte Count 3.23 10^3/uL (1.2-3.4); Absolute Monocyte Count 0.55 10^3/uL (0.1-0.8); Absolute Neutrophil Count 4.34 10^3/uL (1.2-6.7); Basophils % 0.5; Eosinophils % 1.8; HCT 35.5 % (36.0-46.0); HGB 10.9 g/dL (11.2-15.7); Immature Grans % 0.2; Lymphocytes % 38.8; MCHC 30.7 % (32.0-36.0); MCV 78 fL (80-95); MPV 9.6 fL (8.0-11.0); Monocytes % 6.6; Neutrophils % 52.1; Platelet Count 308 10^3/uL (130-400); RBC 4.54 10^6/uL (3.93-5.22); RDW-SD 45.7 fL; WBC 8.33 10^3/uL (4.4-10.8)
[2022-03-13 19:36] LABS: ALT 19 U/L (14-59); AST 19 U/L (15-37); Albumin 3.5 g/dL (3.4-5.0); Alkaline Phosphatase 65 U/L (46-116); Anion Gap 7.1 mmol/L (3-11); BUN 14 mg/dL (7-18); Bilirubin, Total 0.2 mg/dL (0.2-1.0); CO2 29.9 mmol/L (21.0-32.0); Chloride 103 mmol/L (98-107); Estimated GFR 70.36 (mL/min/1.73m2); Glucose 80 mg/dL (74-106); Potassium 3.1 mmol/L (3.5-5.1); Sodium 140 mmol/L (136-145); TSH (W/Ref FT4) 3.53 uIU/mL (0.36-3.74); Total Protein 7.5 g/dL (6.4-8.2)
== END 2022-03-13 16:02 | disposition home or self-care (01) ==
LOC: NCHCN 16:01
PROVIDERS: Visit Provider Family Medicine
DX: R53.83 Other fatigue (principal); M54.12 Radiculopathy, cervical region
CPT/HCPCS: 80053; 84443; 85025

== ENCOUNTER 2022-03-24 20:13 | Outpatient (REF) | payer OTHER, SELFPAY ==
[2022-03-24 22:22] LABS: D-Dimer 410 ng/mlFEU (<500)
== END 2022-03-24 20:14 | disposition home or self-care (01) ==
LOC: LBN 20:13
PROVIDERS: Visit Provider Nurse Practitioner Family
DX: M25.572 Pain in left ankle and joints of left foot (principal)
CPT/HCPCS: 85379

== ENCOUNTER 2022-04-22 02:49 | Outpatient (CLI) | payer OTHER, SELFPAY ==
--- NOTE | 2022-04-22 | DI.MRI_ITS ---
Exam(s) MR CERVICAL SPINE WO EXAM: MR CERVICAL SPINE WO CLINICAL HISTORY: CERVICAL RADICULOPATHY, M54.12 TECHNIQUE: Multiplanar multisequence MRI of the cervical spine was performed without intravenous con trast. COMPARISON: No prior plain films available for comparison. FINDINGS: CERVICOMEDULLARY JUNCTION: Intact with no evidence of cerebellar tonsillar ectopia. No obvious abnor mality of the odontoid process. No evidence of Chiari 1 malformation. CERVICAL SPINAL CORD: There is no abnormal signal in the cervical spinal cord and no evidence of foca l cord atrophy nor focal cord swelling. OSSEOUS:There are no cervical fractures evident. No significant osseous lesions in the cervical vert ebrae. There is straightening of the cervical curvature which is probably related to muscle spasm. INDIVIDUAL LEVELS: C2-3: No disc herniation nor central canal stenosis. No foraminal stenosis. No facet arthropathy. C3-4: Normal disc height. There is a small posterolateral right disc protrusion which extends inside sales assistant iorly 2 millimeters and is approximately 5 millimeters wide. Slightly indents the thecal sac but not the spinal cord. Central canal dimensions are within normal limits. No foraminal stenosis on eithe r side at this level. Also no significant facet arthropathy. C4-5: Moderate decreased disc height. There is relatively symmetrical annular bulging which indents the anterior thecal sac but not the spinal cord and there is no abnormal signal in the cord at this l evel. No dominant disc herniation. No significant facet arthropathy.No obvious foraminal stenosis. C5-6: Moderate decreased disc height and signal. Annular bulging both left and right sided. Small r ight-sided Luschka joint osteophytes. Bulging annulus indents the thecal sac and contacts the anteri or cord. Mild central canal stenosis. There is a posterior-lateral right disc-osteophyte complex wi th mild right-sided foraminal stenosis. No left-sided foraminal stenosis. C6-7: Normal disc height. No disc herniation or central canal stenosis. No foraminal stenosis at th is level. No nephritic facet arthropathy. C7-T1: No disc herniation nor central canal stenosis. No facet arthropathy.No foraminal stenosis. IMPRESSION: 1. Findings at C 3-4, C4-5, and C5-6 levels as described above. 2. No abnormal signal in the cervical spinal cord. 3. Straightening of the cervical spine noted which is probably due to chronic muscle spasm. DATA REPOSITORY:
== END 2022-04-22 03:09 ==
LOC: DI 02:49
PROVIDERS: Visit Provider Family Medicine
DX: M54.12 Radiculopathy, cervical region (principal); M50.31 Other cervical disc degeneration, high cervical region; M50.321 Other cervical disc degeneration at C4-C5 level; M50.322 Other cervical disc degeneration at C5-C6 level; M62.838 Other muscle spasm
CPT/HCPCS: 72141

== ENCOUNTER 2022-05-15 15:58 | Outpatient (REF) | payer OTHER, SELFPAY ==
[2022-05-15 18:19] LABS: HCT 39.2 % (36.0-46.0); MCH 24.9 pg (27.0-33.0); MCHC 30.6 % (32.0-36.0); MCV 81 fL (80-95); MPV 9.9 fL (8.0-11.0); Platelet Count 279 10^3/uL (130-400); RBC 4.82 10^6/uL (3.93-5.22); RDW 19.9 % (11.7-14.6); RDW-SD 58.2 fL; WBC 7.78 10^3/uL (4.4-10.8)
[2022-05-15 18:45] LABS: Ferritin 39 ng/mL (8-252)
== END 2022-05-15 15:59 | disposition home or self-care (01) ==
LOC: NCHCN 15:58
PROVIDERS: PCP Family Medicine; Visit Provider Family Medicine
DX: G47.33 Obstructive sleep apnea (adult) (pediatric) (principal); D64.9 Anemia, unspecified
CPT/HCPCS: 85027; 82728

== ENCOUNTER 2022-08-14 16:50 | Emergency (ER) | payer OTHER, SELFPAY ==
[2022-08-14] VITALS (12 sets, daily range): BP systolic 108–127; BP diastolic 63–74; PULSE 65–78; RESP 14–20; TEMP 36.6; O2SAT 94–98
--- NOTE | 2022-08-14 17:04 | ED.GENADUL_ITS ---
Discharge Plan Disposition Patient Disposition: Home Condition: Stable Discharge Details Clinical Impression: Hypokalemia Primary Care Provider: Parminder Rivera ED Provider: Twin Katz [place] Meds and New Rx's Prescriptions: New lisinopril 20 mg tablet 20 mg PO DAILY Qty: 30 0RF Continued omeprazole 20 mg capsule,delayed release(DR/EC) 20 mg PO DAILY gabapentin 300 mg capsule 600 mg PO BID Rx Instructions: take 2 tabs in the morning, two tabs in the afternoon and 3 tabs at night. famotidine 10 mg tablet 10 mg PO DAILY topiramate 50 mg tablet 50 mg PO BID Systane Complete 0.6 % drops 1 drp ophthalmic (eye) DAILY PRN loteprednol etabonate 0.5 % drops,gel 1 drp ophthalmic (eye) QID Rx Instructions: start 24 hours after surgery rizatriptan 10 mg tablet See Rx Instructions PO .COMPLEX Rx Instructions: take 1 tab at onset of headache; if no relief may repeat 1 tab after at least 2 hrs; max = 3 tabs/24 hr PO venlafaxine 150 mg capsule,extended release 24hr 150 mg PO DAILY metoprolol tartrate 50 mg tablet 50 mg PO BID epinephrine 0.3 mg/0.3 mL auto-injector 0.3 mg IM Q5-15M PRN Rx Instructions: do not exceed 3 doses per episode Adult 50 Plus Probiotic 4 billion cell capsule See Rx Instructions .ROUTE .COMPLEX PRN Rx Instructions: as needed B-complex with vitamin C Tablet 1 tab PO DAILY cholecalciferol (vitamin D3) 25 mcg (1,000 unit) capsule 25 mcg PO DAILY amlodipine 10 mg tablet 10 mg PO DAILY Ca carbonate-mag oxide-vit C 400 mg calcium -117 mg-167 mg tablet See Rx Instructions .ROUTE .COMPLEX Rx Instructions: unknown dose; diclofenac sodium 1 % gel 2 g topical QID Rx Instructions: apply to single elbow, wrist or hand; for hand includes palm/fingers/back of hand acetaminophen 325 mg tablet 325 mg PO ONCE PRN mupirocin 2 % ointment 1 applic topical BID ketoconazole 2 % cream 1 applic topical DAILY tramadol 50 mg Tablet 50 mg PO QID meloxicam 7.5 mg Tablet 7.5 mg PO DAILY PRN Discontinued lisinopril-hydrochlorothiazide 20-25 mg tablet 1 tab PO DAILY Discharge Instructions Instructions: Hypokalemia (ED) Additional Instructions: You were seen in the emergency department for your cold symptoms. Your viral swab was negative for flu, influenza, and RSV. Your chest x-ray showed no sign of pneumonia. Your EKG and your blood work showed no sign of a heart attack. Your potassium was found to be quite low. Please discontinue taking your lisinopril?hydrochlorothiazide. Instead please begin taking just lisinopril which has been sent electronically to your pharmacy. Please follow-up with your primary care provider for reassessment next week. Please return to the emergency department if you develop chest pain shortness of breath weakness or dizziness. Medical Decision Making This is an overall well-appearing normothermic and not tachycardic 46-year-old female with URI symptoms and chest squeezing concerning for viral URI and ACS based on the patient's history of hypertension elevated BMI. Will obtain ECG and troponin. If initial troponin is negative and ECG is nonischemic will be reassured against ACS given the patient's lack of risk factors and the duration of time since her symptoms began earlier this morning. Patient is PERC negative so I did not send a D-dimer. If her troponin is negative she will have a heart score of 2 based on her 2 risk factors and her nonischemic ECG and one-point secondary to her age at 46. No rash to chest to suggest zoster. No fevers to suggest pneumonia and patient has a nonfocal lung exam. She has no significant wheezes nor any history of COPD to suggest COPD exacerbation. No tearing quality to chest discomfort to suggest aortic dissection. No pain out of proportion to suggest necrotizing soft tissue infection. We will swab for flu, COVID, and RSV. No abdominal tenderness to suggest intra-abdominal infection. No epigastric pain to suggest pancreatitis. Will reassess following labs and two-view chest x-ray. 7 PM Potassium returned critically low at 2.8. Patient will receive oral and IV repletion along with 2 g of magnesium. We will plan on redrawing potassium. She was able to tolerate p.o. in the emergency department. She is on li sinopril?hydrochlorothiazide which certainly could be contributing to her hypokalemia which is worse today but has been low in the past. I told the patient that I was not sure that her hypokalemia was the cause of her symptoms however advised her to follow-up with her primary care provider concerning her lisinopril?hydrochlorothiazide. We will have her discontinue this until she is seen next week by her primary care provider. I have ordered the patient for lisinopril without hydrochlorothiazide. 8:45 PM I have asked health community outreach coordinator Pia to arrange for the patient to have primary care follow-up within the week. We will also have patient's potassium rechecked on 08/16/2022. 10 PM Patient tolerated p.o. in ED without any vomiting. She had no significant arrhythmias on telemetry. Her repeat potassium was 11 PM Potassium improved to 3.4. Patient discharged. Chronic conditions affecting the care of the patient: Hypertension and hydrochlorothiazide use History obtained from an outside historian: Patient's External record review: N/A Diagnostic interpretations performed by me: [Per my independent interpretation chest x-ray shows:] No acute infiltrate [Per my independent interpretation EKG shows:] Normal sinus rhythm at a rate of 65. Left axis deviation no signs of LVH. MN within normal limits. Interventricular conduction delay similar to prior. Prior dated last year. QTc within normal limits. Persistent T wave inversion in lead III. No ST segment abnormalities. No acute injury pattern. Appears similar to prior. Medications: Oral and IV potassium repletion Social determinants of health affecting disposition: N/A Management discussed with: N/A Treatment/interventions considered: Hospitalization for monitoring Response to therapies provided: [] HPI General Date/Time Provider Initiated Documentation: 08/14/22 17:03 . HPI Narrative: This is a 46-year-old female with a history of JOSE, hypertension, and elevated BMI in the emergency department in the setting of chest congestion. Patient reports that several weeks ago she had cold symptoms. This initially felt improved but subsequently came back this morning with worsening cough and rhinorrhea. Patient does feel slightly short of breath. She says that there are multiple sick contacts in her house. She tested negative at home for COVID. She was concerned as her home pulse oximeter showed an oxygen saturation on room air at 90%. She is a daily tobacco user but denies routine ethanol and illicits. She is also felt a spasm in her lungs. This is associate with a tightness in her chest. She denies any family history of premature coronary artery disease. She is not on any oral contraceptive pills and she denies PE and DVT history. She has not had any ear pain sore throat nor any fevers but she does endorse nausea. Related Data Home Medications Medication Instructions Recorded Confirmed tramadol 50 mg tablet 50 mg PO QID 07/06/21 08/14/22 meloxicam 7.5 mg tablet 7.5 mg PO DAILY PRN 12/16/21 08/14/22 B-complex with vitamin C 1 tab PO DAILY 04/14/22 08/14/22 cholecalciferol (vitamin D3) 25 25 mcg PO DAILY 04/14/22 08/14/22 mcg (1,000 unit) capsule epinephrine 0.3 mg/0.3 mL 0.3 mg IM Q5-15M PRN 04/14/22 08/14/22 injection, auto-injector famotidine 10 mg tablet 10 mg PO DAILY 04/14/22 08/14/22 gabapentin 300 mg capsule 600 mg PO BID 04/14/22 08/14/22 lactobacillus combination no.9 4 See Rx Instructions .Route 04/14/22 08/14/22 billion cell capsule (Adult 50 .COMPLEX PRN Plus Probiotic) loteprednol etabonate 0.5 % eye 1 drp ophthalmic (eye) QID 04/14/22 08/14/22 gel drops metoprolol tartrate 50 mg tablet 50 mg PO BID 04/14/22 08/14/22 omeprazole 20 mg capsule,delayed 20 mg PO DAILY 04/14/22 08/14/22 release propylene glycol 0.6 % eye drops 1 drp ophthalmic (eye) DAILY PRN 04/14/22 08/14/22 (Systane Complete) rizatriptan 10 mg tablet See Rx Instructions PO .COMPLEX 04/14/22 08/14/22 topiramate 50 mg tablet 50 mg PO BID 04/14/22 08/14/22 venlafaxine 150 mg 150 mg PO DAILY 04/14/22 08/14/22 capsule,extended release 24 hr acetaminophen 325 mg tablet 325 mg PO ONCE PRN 05/05/22 08/14/22 amlodipine 10 mg tablet 10 mg PO DAILY 05/05/22 08/14/22 calcium carb-magnesium oxide-vit C See Rx Instructions .Route .COMPLEX 05/05/22 08/14/22 400 mg calcium-117 mg-167 mg tablet diclofenac sodium 1 % topical gel 2 g topical QID 05/05/22 08/14/22 ketoconazole 2 % topical cream 1 applic topical DAILY 05/05/22 mupirocin 2 % topical ointment 1 applic topical BID 05/05/22 08/14/22 lisinopril 20 mg tablet 20 mg PO DAILY #30 tabs 08/14/22 Previous Rx's Medication Instructions Recorded lisinopril 20 mg tablet 20 mg PO DAILY #30 tabs 08/14/22 Allergies Allergy/AdvReac Type Severity Reaction Status Date / Time adhesive tape Allergy Severe Verified 04/14/22 09:32 corn Allergy Severe Verified 04/14/22 09:32 COVID-19 (SARS-CoV-2) Allergy Severe Verified 04/14/22 09:32 vaccine, robert peanut Allergy Severe Verified 04/14/22 09:32 watermelon Allergy Severe Verified 04/14/22 09:32 wheat Allergy Severe Verified 04/14/22 09:32 latex Allergy Verified 05/04/22 16:31 General Stated Complaint: RespSymp DELL: 4 PFSH All Active Problems (Updated 08/14/22 @ 20:41 by Twin Katz MD) Hypokalemia (Acute) Chronic pain syndrome (Chronic) Hypertension (Chronic) Rajni-Danlos syndrome (Acute) Medical History Anxiety Cervical radiculopathy Chiari I malformation Chronic low back pain without sciatica Degenerative disc disease, cervical Degenerative disc disease, lumbar Essential hypertension Fatigue GERD (gastroesophageal reflux disease) Incontinence in female Intractable chronic migraine without aura Major depression JOSE (obstructive sleep apnea) Pain, joint, ankle, left Tobacco use Social History Smoking/Tobacco Use Status: Current every day Tobacco Type: cigarettes Smoking risk assessment performed?: Yes Alcohol Intake: never Drug use: Never Substance use type: does not use Do you feel safe at home: Yes Do you feel safe in your relationship?: Yes Exam Narrative Exam Narrative: General: Well-appearing in no acute distress speaking in complete sentences. Head: Normocephalic, atraumatic Ear, nose, mouth, throat: Grossly normal inspection. Normal voice, handling secretions normally. Neck: Trachea midline. Cardiovascular: Well-perfused distal extremities. Regular rate and rhythm. No murmurs. Respiratory: Nonlabored respiration. Clear lungs bilaterally. Gastrointestinal: Nondistended abdomen. Musculoskeletal: No edema. Moving all 4 extremities spontaneously. No calf tenderness. Skin: Normal for age and race, grossly normal temperature and turgor. No acute rash. Neurologic: Alert and appropriate, no apparent acute deficits. Psychiatric: Mood and manner are appropriate. Grooming and personal hygiene are appropriate. Course Vital Signs Vital signs: Vital Signs Temperature 36.6 C 08/14/22 16:55 Pulse 78 08/14/22 16:55 Respiratory Rate 20 08/14/22 16:55 Blood Pressure 127/72 08/14/22 16:55 Pulse Oximetry 97 08/14/22 16:55 Temperature 36.6 C 08/14/22 16:55 Temperature Source Skin 08/14/22 16:55 Pulse 78 08/14/22 16:55 Respiratory Rate 20 08/14/22 16:55 Blood Pressure 127/72 08/14/22 16:55 Blood Pressure Position Sitting 08/14/22 16:55 Pulse Oximetry 97 08/14/22 16:55 Oxygen Delivery Method Room Air 08/14/22 16:55 Oxygen Flow Rate 0 08/14/22 16:55
--- NOTE | 2022-08-14 17:15 | RT.EKG_ITS ---
APPROVED REPORT Exam: Resting ECG Reason for Exam: chest pain/sob Patient Location: E HR:65 bpm ECG Measurements Heart Rate 65 AXIS IL 167 P 32 QRSd 113 QRS -2 QT 449 T 11 QTc 466 Conclusion Sinus rhythm...normal P axis, V-rate 60- 99 Normal sinus rhythm at a rate of 65. Left axis deviation no signs of LVH. IL within normal limits. Interventricular conduction delay similar to prior. Prior dated last year. QTc within normal limit s. Persistent T wave inversion in lead III. No ST segment abnormalities. No acute injury pattern. Appears similar to prior.
--- NOTE | 2022-08-14 17:15 | DI.RAD_ITS ---
Exam(s) XR CHEST 2V PA LATERAL EXAM: XR CHEST 2V PA LATERAL CLINICAL HISTORY: Shortness of breath TECHNIQUE: 2D digital imaging was performed. COMPARISON: CR,XR XR CHEST 2V PA LATERAL from 12/16/2021 FINDINGS: HEART: Normal size. Aorta: Not dilated. Mildly tortuous. PULMONARY VASCULATURE: Normal. LUNGS: Clear. Calcified granuloma right middle lobe again noted. PLEURAL SPACE: No pleural effusion or pneumothorax. BONE:Unremarkable for age. IMPRESSION: No acute abnormality. DATA REPOSITORY: RADIATION DOSE DELIVERED:
[2022-08-14 18:11] LABS: COVID-19 PCR Negative (Negative); Influenza A PCR Negative (Negative); Influenza B PCR Negative (Negative); RSV PCR Negative (Negative)
[2022-08-14 18:15] LABS: Source Nasopharynx
[2022-08-14 18:31] LABS: Abs Immature Grans 0.03 10^3/uL (0.0-0.06); Absolute Basophil Count 0.04 10^3/uL (0.0-0.2); Absolute Eosinophil Count 0.14 10^3/uL (0.0-0.7); Absolute Lymphocyte Count 2.88 10^3/uL (1.2-3.4); Absolute Monocyte Count 0.46 10^3/uL (0.1-0.8); Absolute Neutrophil Count 6.05 10^3/uL (1.2-6.7); Basophils % 0.4; Eosinophils % 1.5; HCT 39.3 % (36.0-46.0); Immature Grans % 0.3; MCH 27.7 pg (27.0-33.0); MCHC 33.1 % (32.0-36.0); MCV 84 fL (80-95); MPV 8.6 fL (8.0-11.0); Monocytes % 4.8; Platelet Count 221 10^3/uL (130-400); RBC 4.69 10^6/uL (3.93-5.22); RDW-SD 42.6 fL
[2022-08-14 18:50] LABS: BUN 17 mg/dL (7-18); Chloride 107 mmol/L (98-107); Estimated GFR 70.36 (mL/min/1.73m2); Glucose 100 mg/dL (74-106); Sodium 143 mmol/L (136-145); Troponin I < 50 ng/L (<or=60)
[2022-08-14 18:56] LABS: Potassium 2.8 mmol/L (3.5-5.1)
--- NOTE | 2022-08-14 19:08 | DI.VRAD_ITS ---
PROCEDURE INFORMATION: Exam: XR Chest Exam date and time: 08/14/2022 6:55 PM Age: 46 years old Clinical indication: Shortness of breath TECHNIQUE: Imaging protocol: Radiologic exam of the chest. Views: 2 views. COMPARISON: CR XR CHEST 2V PA LATERAL 12/16/2021 7:55 PM FINDINGS: Lungs: Benign calcified granuloma again seen in the right lung base. No airspace consolidation. Pleural spaces: No pleural effusion. No pneumothorax. Heart/Mediastinum: No cardiomegaly. Bones/joints: No acute fracture. IMPRESSION: No acute cardiopulmonary pathology. Dictated and Authenticated by: Katelin Perez MD. Ordering:PATY Murcia MD
[2022-08-14] MEDS: MAGNESIUM SULFATE 2 GM/50 ML BAG IVPB (19:30)
[2022-08-14] MEDS: Potassium Bicarbonate/Cit AC 25 MEQ TABLET.EFF 50 MEQ PO (20:20)
[2022-08-14] MEDS: Gabapentin 300 MG CAP 600 MG PO (20:20)
[2022-08-14] MEDS: POTASSIUM CHLORIDE/D5-0.9%NACL 1,000 ML 500 MEQ IV (20:47)
--- NOTE | 2022-08-14 21:02 | NUR.NOTE ---
Referral to [facility] Dr Rivera to f/u week of for Hypokalemia, patient to call [facility] Lab wednesday to have repeat potassium drawn.Nursing Note:
--- NOTE | 2022-08-14 22:01 | NUR.NOTE ---
Nursing Note: Report given to Minerva STEELE
[2022-08-14 22:43] LABS: Anion Gap 6.8 mmol/L (3-11); BUN 14 mg/dL (7-18); CO2 29.2 mmol/L (21.0-32.0); CREATININE 0.9 mg/dL (0.55-1.02); Calcium 8.6 mg/dL (8.5-10.1); Chloride 108 mmol/L (98-107); Estimated GFR 79.85 (mL/min/1.73m2); Glucose 197 mg/dL (74-106); Potassium 3.4 mmol/L (3.5-5.1); Sodium 144 mmol/L (136-145)
--- NOTE | 2022-08-17 09:13 | NUR.NOTE ---
Nursing Note:Accessed patient chart to determine how many EKG orders were in the chart from the ED. There was an outstanding EKG in ordered status. There are no EKG's in the [employer] system that are outstanding. EKG order was deleted.
== END 2022-08-14 23:48 | disposition home or self-care (01) ==
PROVIDERS: Emergency Provider Emergency Medicine; PCP Family Medicine
DX: E87.6 Hypokalemia (principal); I10 Essential (primary) hypertension
CPT/HCPCS: 80048; 87637; 93005; 96365; 96366; 96367; 99284; 71046; 84484; 85025; 93010

== ENCOUNTER 2022-08-17 12:09 | Outpatient (CLI) | payer OTHER, SELFPAY ==
[2022-08-17 09:34] LABS: Potassium 3.6 mmol/L (3.5-5.1)
== END 2022-08-17 12:10 | disposition home or self-care (01) ==
LOC: LBO 12:10
PROVIDERS: PCP Family Medicine; Visit Provider Urology
DX: E87.6 Hypokalemia (principal)
CPT/HCPCS: 36415; 84132

== ENCOUNTER 2022-08-25 18:00 | Outpatient (REF) | payer OTHER, SELFPAY ==
--- NOTE | 2022-08-25 | DI.RAD_ITS ---
Exam(s) XR CHEST 2V PA LATERAL EXAM: XR CHEST 2V PA LATERAL CLINICAL HISTORY: COUGH TECHNIQUE: 2D digital imaging was performed. COMPARISON: CR,XR XR CHEST 2V PA LATERAL from 08/14/2022 FINDINGS: HEART: Normal size. Aorta: Not dilated. PULMONARY VASCULATURE: Normal. LUNGS: Clear. Incidental granuloma right middle lobe. PLEURAL SPACE: No pleural effusion or pneumothorax. BONE:Unremarkable for age. IMPRESSION: No acute abnormality. DATA REPOSITORY: RADIATION DOSE DELIVERED:
--- NOTE | 2022-08-25 19:09 | DI.VRAD_ITS ---
PROCEDURE INFORMATION: Exam: XR Chest Exam date and time: 08/25/2022 6:40 PM Age: 46 years old Clinical indication: Cough and shortness of breath and other: Cough TECHNIQUE: Imaging protocol: Radiologic exam of the chest. Views: 2 views. COMPARISON: CR XR CHEST 2V PA LATERAL 08/14/2022 6:55 PM FINDINGS: Lungs: No consolidation. Hyperdense nodule in the right lower lobe thought to represent a calcified granuloma and is unchanged. Pleural spaces: Unremarkable. No pleural effusion. No pneumothorax. Heart/Mediastinum: Unremarkable. No cardiomegaly. Bones/joints: Unremarkable. IMPRESSION: No acute findings. Dictated and Authenticated by: Josephine Coleman MD. Ordering:BING MARTIN MD
== END 2022-08-25 18:20 ==
LOC: DI 18:00
PROVIDERS: PCP Family Medicine; Visit Provider Nurse Practitioner Family
DX: R05.8 Other specified cough (principal); R91.8 Other nonspecific abnormal finding of lung field
CPT/HCPCS: 71046

== ENCOUNTER 2022-09-02 16:30 | Outpatient (REF) | payer OTHER, SELFPAY ==
[2022-09-02 13:47] LABS: ESR 11 mm/hr (0-20)
[2022-09-02 14:17] LABS: Hemoglobin A1C 6.1 % (<5.7)
[2022-09-02 15:08] LABS: Vitamin B12 309 pg/mL (193-986)
[2022-09-03 13:07] LABS: Albumin 52.6 % (55.8-66.1); Albumin g/dL 3.6 g/dL (3.6-5.2); Total Protein 6.8 g/dL (6.3-8.2)
== END 2022-09-02 16:31 | disposition home or self-care (01) ==
LOC: NCHCN 16:30
PROVIDERS: PCP Family Medicine; Visit Provider Family Medicine
DX: D50.9 Iron deficiency anemia, unspecified (principal); R53.83 Other fatigue; I10 Essential (primary) hypertension; F41.8 Other specified anxiety disorders; G89.4 Chronic pain syndrome; Q79.60 Ehlers-Danlos syndrome, unspecified; Z00.00 Encounter for general adult medical examination without abnormal findings; R73.09 Other abnormal glucose
CPT/HCPCS: 85652; 82607; 83036; 84165

== ENCOUNTER 2022-09-24 13:13 | Emergency (ER) | payer OTHER, SELFPAY ==
[2022-09-24 13:08] VITALS: BP 121/84; PULSE 78; RESP 15; TEMP 37.1; O2SAT 96
--- NOTE | 2022-09-24 13:53 | ED.GENADUL_ITS ---
Discharge Plan Discharge Details Chief Complaint: PsychEval Primary Care Provider: Parminder Rivera ED Provider: Edison Villanueva Home Meds and New Rx's Prescriptions: No Action tramadol 100 mg capsule,ER biphase 24 hr 25-75 100 mg PO DAILY Patient Comments: Pt no longer takes this dose 09/24/22 CT naloxone 4 mg/actuation spray,non-aerosol 4 mg intranasal Q2M PRN Rx Instructions: spray 1 dose into ONE nostril; alternate nostrils w each dose until help arrives albuterol sulfate 90 mcg/actuation HFA aerosol inhaler 2 puff inhalation Q6H PRN prednisone 50 mg tablet 50 mg PO DAILY Patient Comments: RX complete 09/24/22 CT Rx Instructions: 1 tablet every day for 5 days. amoxicillin-pot clavulanate 875-125 mg tablet 1 tab PO BID Patient Comments: Prescription complete 09/24/22 CT omeprazole 20 mg capsule,delayed release(DR/EC) 20 mg PO DAILY famotidine 10 mg tablet 10 mg PO DAILY topiramate 50 mg tablet 50 mg PO BID Systane Complete 0.6 % drops 1 drp ophthalmic (eye) DAILY PRN loteprednol etabonate 0.5 % drops,gel 1 drp ophthalmic (eye) QID Rx Instructions: start 24 hours after surgery rizatriptan 10 mg tablet See Rx Instructions PO .COMPLEX Rx Instructions: take 1 tab at onset of headache; if no relief may repeat 1 tab after at least 2 hrs; max = 3 tabs/24 hr PO venlafaxine 150 mg capsule,extended release 24hr 150 mg PO DAILY metoprolol tartrate 50 mg tablet 50 mg PO BID epinephrine 0.3 mg/0.3 mL auto-injector 0.3 mg IM Q5-15M PRN Rx Instructions: do not exceed 3 doses per episode Adult 50 Plus Probiotic 4 billion cell capsule See Rx Instructions .ROUTE .COMPLEX PRN Rx Instructions: as needed B-complex with vitamin C Tablet 1 tab PO DAILY cholecalciferol (vitamin D3) 25 mcg (1,000 unit) capsule 25 mcg PO DAILY amlodipine 10 mg tablet 10 mg PO DAILY Ca carbonate-mag oxide-vit C 400 mg calcium -117 mg-167 mg tablet See Rx Instructions .ROUTE .COMPLEX Rx Instructions: unknown dose; diclofenac sodium 1 % gel 2 g topical QID Rx Instructions: apply to single elbow, wrist or hand; for hand includes palm/fingers/back of hand acetaminophen 325 mg tablet 325 mg PO ONCE PRN mupirocin 2 % ointment 1 applic topical BID ketoconazole 2 % cream 1 applic topical DAILY gabapentin 300 mg capsule 300 mg PO BID Patient Comments: Pt on different dose 09/24/22 CT tramadol 50 mg Tablet 50 mg PO QID lisinopril 20 mg tablet 20 mg PO DAILY Qty: 30 0RF gabapentin 100 mg Capsule See Rx Instructions .ROUTE .COMPLEX Rx Instructions: Take 2 caps in the AM, 1 cap at noon and 2 caps at HS meloxicam 7.5 mg Tablet 7.5 mg PO DAILY PRN Medical Decision Making <Ellyn Westbrook NP - Last Filed: 09/24/22 15:39> 46-year-old female presents to the ER with chief complaint of suicidal ideation and depression. Patient has a past medical history of hypertension Rajni- Danlos syndrome, Chiari I malformation, thoracic outlet syndrome, chronic pain syndrome, anxiety GERD and major depression. She is a daily smoker. She denies any drugs or alcohol. She reports over the weekend the suicidal ideation which she reports she has often have gotten worse. She does have a plan which she did not describe to me. However triage note says that she has a plan of crashing her car. She is tearful upon arrival. She denies doing anything to harm herself or taking any extra medications over the last couple of days. Medical clearance work-up ordered including CBC CMP TSH Tylenol salicylate urine drug screen and alcohol level. Patient is requesting Tylenol and her afternoon dose of gabapentin which was ordered. Sitter is at bedside, patient is in paper scrubs. Belongings have been collected and she is in the line of sight of nurses station. At this time she is calm and cooperative. CBC shows no leukocytosis, sodium 142 potassium 3.3 TSH within normal limits, Tylenol less than 2, salicylate level is 5.8 which is within the therapeutic range, UDS is negative ethyl alcohol level less than 3.0. 1527: Patient is medically cleared, will page mental health. 15 [id number]: Discussed with any [facility] that patient has already had an evaluation in the community and was sent here for medical clearance and to await placement. We will fax to an EKG as her labs. At this time she is pending voluntary placement. Care is to be handed off to oncoming provider Good Villanueva NP while awaiting placement. Medical Records Medical records reviewed: Yes I reviewed the patient's medical records. Lab Data Lab results reviewed: Yes I reviewed the patient's lab results. Labs: Laboratory Tests Range/Units 09/24/22 09/24/22 09/24/22 14:21 14:45 14:45 WBC (4.4-10.8) 10^3/uL RBC (3.93-5.22) 10^6/uL Hgb (11.2-15.7) g/dL Hct (36.0-46.0) % MCV (80-95) fL MCH (27.0-33.0) pg MCHC (32.0-36.0) % RDW (11.7-14.6) % Plt Count (130-400) 10^3/uL MPV (8.0-11.0) fL Immature Gran % Neutrophils % Lymphocytes % Monocytes % Eosinophils % Basophils % Nucleated RBC % (0.0-0.3) % Absolute Neutrophils (1.2-6.7) 10^3/uL Absolute Lymphocytes (1.2-3.4) 10^3/uL Absolute Monocytes (0.1-0.8) 10^3/uL Absolute Eosinophils (0.0-0.7) 10^3/uL Absolute Basophils (0.0-0.2) 10^3/uL Sodium (136-145) mmol/L 142 Potassium (3.5-5.1) mmol/L 3.3 L Chloride (98-107) mmol/L 107 Carbon Dioxide (21.0-32.0) mmol/L 28.0 Anion Gap (3-11) mmol/L 7.0 BUN (7-18) mg/dL 8 Creatinine (0.55-1.02) mg/dL 1.0 Est GFR (CKD-EPI 2020) (mL/min/1.73m2) 70.36 Glucose (74-106) mg/dL 102 Calcium (8.5-10.1) mg/dL 9.0 Total Bilirubin (0.2-1.0) mg/dL 0.4 AST (15-37) U/L 13 L ALT (14-59) U/L 24 Alkaline Phosphatase (46-116) U/L 75 Total Protein (6.4-8.2) g/dL 7.4 Albumin (3.4-5.0) g/dL 3.5 TSH (0.36-3.74) uIU/mL 2.21 Salicylates (<2.8) mg/dL 5.8 Urine Opiates Screen (Negative) Negative Urine Methadone Screen (Negative) Negative Acetaminophen (10-30) ug/mL < 2 Ur Barbiturates Screen (Negative) Negative Ur Tricyclics Screen (Negative) Negative Ur Amphetamines Screen (Negative) Negative U Benzodiazepines Scrn (Negative) Negative Urine Cocaine Screen (Negative) Negative Ur THC Screen (Negative) Negative Ethyl Alcohol (<10) mg/dL < 3.0 Range/Units 09/24/22 14:45 WBC (4.4-10.8) 10^3/uL 7.35 RBC (3.93-5.22) 10^6/uL 4.76 Hgb (11.2-15.7) g/dL 13.2 Hct (36.0-46.0) % 40.6 MCV (80-95) fL 85 MCH (27.0-33.0) pg 27.7 MCHC (32.0-36.0) % 32.5 RDW (11.7-14.6) % 14.0 Plt Count (130-400) 10^3/uL 288 MPV (8.0-11.0) fL 8.6 Immature Gran % 0.3 Neutrophils % 58.1 Lymphocytes % 34.8 Monocytes % 4.9 Eosinophils % 1.5 Basophils % 0.4 Nucleated RBC % (0.0-0.3) % 0.0 Absolute Neutrophils (1.2-6.7) 10^3/uL 4.27 Absolute Lymphocytes (1.2-3.4) 10^3/uL 2.56 Absolute Monocytes (0.1-0.8) 10^3/uL 0.36 Absolute Eosinophils (0.0-0.7) 10^3/uL 0.11 Absolute Basophils (0.0-0.2) 10^3/uL 0.03 Sodium (136-145) mmol/L Potassium (3.5-5.1) mmol/L Chloride (98-107) mmol/L Carbon Dioxide (21.0-32.0) mmol/L Anion Gap (3-11) mmol/L BUN (7-18) mg/dL Creatinine (0.55-1.02) mg/dL Est GFR (CKD-EPI 2020) (mL/min/1.73m2) Glucose (74-106) mg/dL Calcium (8.5-10.1) mg/dL Total Bilirubin (0.2-1.0) mg/dL AST (15-37) U/L ALT (14-59) U/L Alkaline Phosphatase (46-116) U/L Total Protein (6.4-8.2) g/dL Albumin (3.4-5.0) g/dL TSH (0.36-3.74) uIU/mL Salicylates (<2.8) mg/dL Urine Opiates Screen (Negative) Urine Methadone Screen (Negative) Acetaminophen (10-30) ug/mL Ur Barbiturates Screen (Negative) Ur Tricyclics Screen (Negative) Ur Amphetamines Screen (Negative) U Benzodiazepines Scrn (Negative) Urine Cocaine Screen (Negative) Ur THC Screen (Negative) Ethyl Alcohol (<10) mg/dL HPI <Ellyn Westbrook NP - Last Filed: 09/24/22 15:39> General Mode of arrival: ambulatory . Date/Time Provider Initiated Documentation: 09/24/22 13:42 . Limitations to Documentation: no limitations . Information obtained by: patient, RN notes reviewed and old records reviewed . HPI Narrative: 46-year-old female presents to the ER with chief complaint of suicidal ideation and depression. Patient has a past medical history of hypertension Rajni- Danlos syndrome, Chiari I malformation, thoracic outlet syndrome, chronic pain syndrome, anxiety GERD and major depression. She is a daily smoker. She denies any drugs or alcohol. She reports over the weekend the suicidal ideation which she reports she has often have gotten worse. She does have a plan which she did not describe to me. However triage note says that she has a plan of crashing her car. She is tearful upon arrival. She denies doing anything to harm herself or taking any extra medications over the last couple of days. She is complaining of a headache and is requesting some Tylenol and her afternoon gabapentin dose. Related Data Home Medications Medication Instructions Recorded Confirmed tramadol 50 mg tablet 50 mg PO QID 07/06/21 09/24/22 meloxicam 7.5 mg tablet 7.5 mg PO DAILY PRN 12/16/21 09/24/22 B-complex with vitamin C 1 tab PO DAILY 04/14/22 09/24/22 cholecalciferol (vitamin D3) 25 25 mcg PO DAILY 04/14/22 09/24/22 mcg (1,000 unit) capsule epinephrine 0.3 mg/0.3 mL 0.3 mg IM Q5-15M PRN 04/14/22 09/24/22 injection, auto-injector famotidine 10 mg tablet 10 mg PO DAILY 04/14/22 09/24/22 lactobacillus combination no.9 4 See Rx Instructions .Route 04/14/22 09/24/22 billion cell capsule (Adult 50 .COMPLEX PRN Plus Probiotic) loteprednol etabonate 0.5 % eye 1 drp ophthalmic (eye) QID 04/14/22 09/24/22 gel drops metoprolol tartrate 50 mg tablet 50 mg PO BID 04/14/22 09/24/22 omeprazole 20 mg capsule,delayed 20 mg PO DAILY 04/14/22 09/24/22 release propylene glycol 0.6 % eye drops 1 drp ophthalmic (eye) DAILY PRN 04/14/22 09/24/22 (Systane Complete) rizatriptan 10 mg tablet See Rx Instructions PO .COMPLEX 04/14/22 09/24/22 topiramate 50 mg tablet 50 mg PO BID 04/14/22 09/24/22 venlafaxine 150 mg 150 mg PO DAILY 04/14/22 09/24/22 capsule,extended release 24 hr acetaminophen 325 mg tablet 325 mg PO ONCE PRN 05/05/22 09/24/22 amlodipine 10 mg tablet 10 mg PO DAILY 05/05/22 09/24/22 calcium carb-magnesium oxide-vit C See Rx Instructions .Route .COMPLEX 05/05/22 09/24/22 400 mg calcium-117 mg-167 mg tablet diclofenac sodium 1 % topical gel 2 g topical QID 05/05/22 09/24/22 ketoconazole 2 % topical cream 1 applic topical DAILY 05/05/22 09/24/22 mupirocin 2 % topical ointment 1 applic topical BID 05/05/22 09/24/22 lisinopril 20 mg tablet 20 mg PO DAILY #30 tabs 08/14/22 09/24/22 gabapentin 300 mg capsule 300 mg PO BID 08/19/22 08/27/22 albuterol sulfate 90 mcg/actuation 2 puff inhalation Q6H PRN 08/27/22 09/24/22 aerosol inhaler amoxicillin 875 mg-potassium 1 tab PO BID 08/27/22 08/27/22 clavulanate 125 mg tablet naloxone 4 mg/actuation nasal spray 4 mg intranasal Q2M PRN 08/27/22 09/24/22 prednisone 50 mg tablet 50 mg PO DAILY 08/27/22 08/27/22 tramadol 100 mg capsule 100 mg PO DAILY 08/27/22 08/27/22 24h,extended release(25-75) gabapentin 100 mg capsule See Rx Instructions .Route .COMPLEX 09/24/22 09/24/22 Previous Rx's Medication Instructions Recorded lisinopril 20 mg tablet 20 mg PO DAILY #30 tabs 08/14/22 Allergies Allergy/AdvReac Type Severity Reaction Status Date / Time adhesive tape Allergy Severe Verified 09/24/22 13:13 corn Allergy Severe Verified 09/24/22 13:13 COVID-19 (SARS-CoV-2) Allergy Severe Verified 09/24/22 13:13 vaccine, robert peanut Allergy Severe Verified 09/24/22 13:13 watermelon Allergy Severe Verified 09/24/22 13:13 wheat Allergy Severe Verified 09/24/22 13:13 rice Allergy Intermediate Skin Rash Unverified 09/24/22 13:13 latex Allergy Verified 09/24/22 13:13 General Stated Complaint: PsychEval DELL: 2 Review of Systems <Ellyn Westbrook NP - Last Filed: 09/24/22 15:39> All systems reviewed & are unremarkable except as noted in HPI and below Psychiatric Psychiatric: Reports as per HPI, Reports depression and Reports suicidal ideation PFS <Ellyn Westbrook NP - Last Filed: 09/24/22 15:39> All Active Problems Radicular syndrome of right leg (Acute) Paresthesias (Acute) Idiopathic small fiber peripheral neuropathy (Acute) Dysphagia (Acute) Bilateral hip pain (Acute) Thoracic outlet syndrome (Acute) Chronic pain syndrome (Chronic) Hypertension (Chronic) Rajni-Danlos syndrome (Acute) Medical History Anxiety Cervical radiculopathy Chiari I malformation Chronic low back pain without sciatica Degenerative disc disease, cervical Degenerative disc disease, lumbar Essential hypertension Fatigue GERD (gastroesophageal reflux disease) Incontinence in female Intractable chronic migraine without aura Major depression JOSE (obstructive sleep apnea) Pain, joint, ankle, left Tobacco use Surgical History S/P hernia repair Family History Mother Hypertension Diabetes Heart disease Father Hyperlipidemia Social History Smoking/Tobacco Use Status: Current every day Tobacco Type: cigarettes Smoking risk assessment performed?: Yes Alcohol Intake: current Alcohol Intake frequency: holidays/special occasions only Drug use: Never Substance use type: does not use Household members: spouse Number of Children: 2 current occupation: Does not work Do you feel safe at home: Yes Do you feel safe in your relationship?: Yes Exam <Ellyn Westbrook NP - Last Filed: 09/24/22 15:39> Narrative Exam Narrative: Constitutional: Alert and oriented x3. Appears stated age. Normal body habitus. Head: Normocephalic, no trauma. Eyes: Pupils PERRL, Red reflex noted, EOM's intact. Eyelids symmetrical without lesions, discharge, or swelling. ENT: Bilateral TM's WNL, External ear normal to inspection, no mastoid TTP, swelling, or erythema, Nasal turbinates WNL, no nasal discharge. Normal dentition, Posterior pharynx WNL, no exudate. Chest: RRR, Normal S1, S2, distal pulses intact. Resp: Lungs clear to auscultation bilaterally, no wheezes, rales, or rhonchi. Abdomen: Soft, non-distended, Normoactive bowel sounds all 4 quads. Musculoskeletal: Normal gait, 5/5 strength to all four extremities. Skin: No suspicious rashes or lesions. Capillary refill less than 2 sec. Neurologic: Cranial nerves II-XII intact. Alert and oriented x 3. Motor: No deficits noted. Sensory: Intact bilaterally all 4 extremities. Reflexes: DTR's intact bilaterally.. Hematologic/Lymphatic: No ecchymosis, no lymphadenopathy. Psych Speech and Movement: speech and movement normal Affect: sad Attitude: cooperative Thought Process: normal Thought Content: suicidality Insight: limited Judgment: limited Course <Ellyn Westbrook NP - Last Filed: 09/24/22 15:39> Vital Signs Vital signs: Vital Signs Temperature 37.1 C 09/24/22 13:08 Pulse 78 09/24/22 13:08 Respiratory Rate 15 09/24/22 13:08 Blood Pressure 121/84 09/24/22 13:08 Pulse Oximetry 96 09/24/22 13:08 Temperature 37.1 C 09/24/22 13:08 Temperature Source Oral 09/24/22 13:08 Pulse 78 09/24/22 13:08 Respiratory Rate 15 09/24/22 13:08 Respiratory Effort Normal 09/24/22 13:10 Blood Pressure 121/84 09/24/22 13:08 Blood Pressure Position Sitting 09/24/22 13:08 Pulse Oximetry 96 09/24/22 13:08 Oxygen Delivery Method Room Air 09/24/22 13:08 Oxygen Flow Rate 0 09/24/22 13:08 Pain Level 0 09/24/22 13:08 Sign Out <Ellyn Westbrook NP - Last Filed: 09/24/22 15:39> Sign Out Data: Sign Out Comment: 46-year-old female suicidal ideation. She reports gotten worse over the last couple of days. She states that she has SI frequently. She reports having a plan of crashing her car. History of major depression, calm and cooperative upon arrival. Was given Tylenol and gabapentin. Medically cleared pending mental health eval. Last updated by Ellyn Westbrook NP at 09/24/22 15:34 PAWSS <Ellyn Westbrook NP - Last Filed: 09/24/22 15:39> Have you Been Recently Intoxicated or Drunk Within the Last 30 days?: No Have you Ever Experienced Previous Episodes of Alcohol Withdrawal?: No Have you ever Experienced Withdrawal Seizures?: No Have you ever Experienced Delirium Tremens(DT)s?: No Have you ever undergone Alcohol Rehabilitation Treatment (i.e, inpt ot outpatient treatment programs)?: No Have you ever Experienced Blackouts?: No Have you ever Combined Alcohol with other Downers within the last 90 days?: No Have you ever Combined Alcohol with any other Substance of Abuse during the last 90 days?: No Result: 0 <Edison Villanueva NP - Last Filed: 09/24/22 18:28> Result: 0
[2022-09-24] MEDS: Acetaminophen 500 MG TAB PO (14:05)
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
[2022-09-24 14:42] LABS: *AMPHETAMINES SCREEN URINE Negative (Negative); *BARBITURATES SCREEN URINE Negative (Negative); *BENZODIAZEPINES SCREEN URINE Negative (Negative); Cannabinoids THC Negative (Negative); Cocaine Screen,Urine Negative (Negative); METHADONE URINE SCREEN Negative (Negative); OPIATES URINE SCREEN Negative (Negative); Tricyclic Antidepressants Negative (Negative)
[2022-09-24 14:52] LABS: Abs Immature Grans 0.02 10^3/uL (0.0-0.06); Absolute Basophil Count 0.03 10^3/uL (0.0-0.2); Absolute Eosinophil Count 0.11 10^3/uL (0.0-0.7); Absolute Lymphocyte Count 2.56 10^3/uL (1.2-3.4); Absolute Monocyte Count 0.36 10^3/uL (0.1-0.8); Absolute Neutrophil Count 4.27 10^3/uL (1.2-6.7); Basophils % 0.4; Eosinophils % 1.5; HCT 40.6 % (36.0-46.0); HGB 13.2 g/dL (11.2-15.7); Immature Grans % 0.3; Lymphocytes % 34.8; MCH 27.7 pg (27.0-33.0); MCHC 32.5 % (32.0-36.0); MCV 85 fL (80-95); MPV 8.6 fL (8.0-11.0); Monocytes % 4.9; Neutrophils % 58.1; Platelet Count 288 10^3/uL (130-400); RBC 4.76 10^6/uL (3.93-5.22); RDW-SD 43.3 fL; WBC 7.35 10^3/uL (4.4-10.8)
[2022-09-24 15:15] LABS: ALT 24 U/L (14-59); AST 13 U/L (15-37); Albumin 3.5 g/dL (3.4-5.0); Alkaline Phosphatase 75 U/L (46-116); BUN 8 mg/dL (7-18); Bilirubin, Total 0.4 mg/dL (0.2-1.0); Chloride 107 mmol/L (98-107); Estimated GFR 70.36 (mL/min/1.73m2); Glucose 102 mg/dL (74-106); Potassium 3.3 mmol/L (3.5-5.1); Sodium 142 mmol/L (136-145); TSH (W/Ref FT4) 2.21 uIU/mL (0.36-3.74); Total Protein 7.4 g/dL (6.4-8.2)
[2022-09-24 15:16] LABS: ETHANOL BLOOD < 3.0 mg/dL (<10)
[2022-09-24 15:22] LABS: Salicylate 5.8 mg/dL (<2.8)
[2022-09-24 15:23] LABS: Acetaminophen < 2 ug/mL (10-30)
[2022-09-24] MEDS: Gabapentin 300 MG CAP 600 MG PO (15:29)
[2022-09-24] MEDS: Potassium Chloride 20 MEQ TABCR PO (16:04)
[2022-09-24] MEDS: traMADol 50 MG TAB PO (18:14)
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
[2022-09-24] MEDS: Acetaminophen 325 MG TAB 650 MG PO (20:20)
[2022-09-25] MEDS: Topiramate 50 MG TAB ×2 (01:25→01:38)
[2022-09-25 01:26] VITALS: BP 118/84; PULSE 73; RESP 21; TEMP 36.6; O2SAT 97
[2022-09-25] MEDS: Metoprolol 50 MG TAB PO (01:37)
[2022-09-25] MEDS: traMADol 50 MG TAB PO ×2 (03:00→10:51)
[2022-09-25] MEDS: Gabapentin 300 MG CAP PO (07:50)
[2022-09-25] MEDS: Venlafaxine 150 MG CAPCR PO (07:50)
[2022-09-25] MEDS: Famotidine 20 MG TAB PO (07:50)
[2022-09-25] MEDS: Cholecalciferol (Vitamin D3) 1,000 UNIT TAB 1000 UNITS PO (07:50)
[2022-09-25] MEDS: Lisinopril 10 MG TAB 20 MG PO (07:51)
[2022-09-25] MEDS: Topiramate 50 MG TAB PO (07:51)
[2022-09-25] MEDS: amLODIPine 10 MG TAB PO (07:51)
--- NOTE | 2022-09-25 10:07 | W.EDPROG ---
Date of service: 09/25/22 Time of Service: 10:07 Medical Decision Making Patient resting comfortably no acute distress. Have given Dr. Petersen signout excepting physician Dr. Reddy at [facility]. Sign Out Sign Out Data: Sign Out Comment: 46-year-old female suicidal ideation. She reports gotten worse over the last couple of days. She states that she has SI frequently. She reports having a plan of crashing her car. History of major depression, calm and cooperative upon arrival. Was given Tylenol and gabapentin. Medically cleared pending mental health eval. Last updated by Ellyn Westbrook NP at 09/24/22 15:34 Sign Out Comment: Patient signed out pending psychiatric bed placement. Patient is seeking voluntary admission and is calm and cooperative throughout my care of patient. Last updated by Edison Villanueva NP at 09/24/22 23:05 Sign Out Comment: Patient stable throughout the night. No interventions indicated. Patient seeking voluntary admission. Last updated by Alejandro Roberts DO at 09/25/22 07:09 Discharge Plan Disposition Patient Disposition: Psychiatric Hospital/Unit Specific Psychiatric Facility: [facility] Discharge Details Chief Complaint: PsychEval Clinical Impression: Depression, Suicidal ideation Primary Care Provider: Parminder Rivera ED Provider: Quinten Cox Home Meds and New Rx's Prescriptions: No Action tramadol 100 mg capsule,ER biphase 24 hr 25-75 100 mg PO DAILY Patient Comments: Pt no longer takes this dose 09/24/22 CT naloxone 4 mg/actuation spray,non-aerosol 4 mg intranasal Q2M PRN Rx Instructions: spray 1 dose into ONE nostril; alternate nostrils w each dose until help arrives albuterol sulfate 90 mcg/actuation HFA aerosol inhaler 2 puff inhalation Q6H PRN prednisone 50 mg tablet 50 mg PO DAILY Patient Comments: RX complete 09/24/22 CT Rx Instructions: 1 tablet every day for 5 days. amoxicillin-pot clavulanate 875-125 mg tablet 1 tab PO BID Patient Comments: Prescription complete 09/24/22 CT omeprazole 20 mg capsule,delayed release(DR/EC) 20 mg PO DAILY famotidine 10 mg tablet 10 mg PO DAILY topiramate 50 mg tablet 50 mg PO BID Systane Complete 0.6 % drops 1 drp ophthalmic (eye) DAILY PRN loteprednol etabonate 0.5 % drops,gel 1 drp ophthalmic (eye) QID Rx Instructions: start 24 hours after surgery rizatriptan 10 mg tablet See Rx Instructions PO .COMPLEX Rx Instructions: take 1 tab at onset of headache; if no relief may repeat 1 tab after at least 2 hrs; max = 3 tabs/24 hr PO venlafaxine 150 mg capsule,extended release 24hr 150 mg PO DAILY metoprolol tartrate 50 mg tablet 50 mg PO BID epinephrine 0.3 mg/0.3 mL auto-injector 0.3 mg IM Q5-15M PRN Rx Instructions: do not exceed 3 doses per episode Adult 50 Plus Probiotic 4 billion cell capsule See Rx Instructions .ROUTE .COMPLEX PRN Rx Instructions: as needed B-complex with vitamin C Tablet 1 tab PO DAILY cholecalciferol (vitamin D3) 25 mcg (1,000 unit) capsule 25 mcg PO DAILY amlodipine 10 mg tablet 10 mg PO DAILY Ca carbonate-mag oxide-vit C 400 mg calcium -117 mg-167 mg tablet See Rx Instructions .ROUTE .COMPLEX Rx Instructions: unknown dose; diclofenac sodium 1 % gel 2 g topical QID Rx Instructions: apply to single elbow, wrist or hand; for hand includes palm/fingers/back of hand acetaminophen 325 mg tablet 325 mg PO ONCE PRN mupirocin 2 % ointment 1 applic topical BID ketoconazole 2 % cream 1 applic topical DAILY gabapentin 300 mg capsule 300 mg PO BID Patient Comments: Pt on different dose 09/24/22 CT tramadol 50 mg Tablet 50 mg PO QID lisinopril 20 mg tablet 20 mg PO DAILY Qty: 30 0RF gabapentin 100 mg Capsule See Rx Instructions .ROUTE .COMPLEX Rx Instructions: Take 2 caps in the AM, 1 cap at noon and 2 caps at HS meloxicam 7.5 mg Tablet 7.5 mg PO DAILY PRN
--- NOTE | 2022-09-25 14:49 | CMPROGNOTE_ITS ---
- If Service Date Differs Date of service: 09/25/22 Time of Service: 14:49 Care Management Progress Note Marcela has been accepted for transfer to [facility]. [place] arranged for transportation with [employer] The expected time of transport is 2:;30 pm.
== END 2022-09-25 05:13 ==
PROVIDERS: Registered Nurse Emergency; Emergency Provider Emergency Medicine; PCP Family Medicine
DX: R45.851 Suicidal ideations (principal); F32.A Depression, unspecified; Q79.60 Ehlers-Danlos syndrome, unspecified; F17.210 Nicotine dependence, cigarettes, uncomplicated
CPT/HCPCS: 80053; 80307; 81025; 99285; 80320; 80329; 84443; 85025

== ENCOUNTER 2022-10-29 02:11 | Outpatient (CLI) | payer OTHER, SELFPAY ==
--- NOTE | 2022-10-29 08:25 | DI.MRI_ITS ---
Exam(s) MR BRAIN WO EXAM: MR BRAIN WO CLINICAL HISTORY: ?MS,paresthesias,r20.2 TECHNIQUE: Multiplanar multisequence MRI of the brain was performed. COMPARISON: MR MRI HEAD W/O from 01/25/2020 FINDINGS: VENTRICLES AND EXTRA AXIAL SPACES: Normal in size and morphology for the patient's age. There is stab le prominence of Meckel's caves bilaterally. MIDLINE SHIFT: None. CEREBRAL PARENCHYMA: No focus of restricted diffusion to suggest acute infarct. No space-occupying le florencia identified. No white matter disease. HEMORRHAGE: None. BRAINSTEM/CEREBELLUM: There is stable tonsillar ectopia of the right cerebellar tonsil. CALVARIUM: Normal. VISUALIZED PARANASAL SINUSES/MASTOIDS:Clear. ABSENTEE-SHAWNEE OF CRUZ: Normal flow void. PITUITARY GLAND: Unremarkable. OTHER FINDINGS: None. IMPRESSION: 1. Overall, no significant change in appearance of the brain compared to 01/25/2020. 2. No significant white matter disease. DATA REPOSITORY:
--- NOTE | 2022-10-29 08:25 | DI.MRI_ITS ---
Exam(s) MR LUMBAR SPINE WO EXAM: MR LUMBAR SPINE WO CLINICAL HISTORY: R radiculopathy symptoms,paresthesias,r20.2,m54.10. TECHNIQUE: Multiplanar multisequence MRI of the Lumbar spine was performed. COMPARISON: No exams were available for comparison FINDINGS: Bones: The last intervertebral disc space is designated the L5/S1 level for the numbering purpose of this examination. The vertebral body heights are well maintained. Alignment is satisfactory. There is a hemangioma or fatty rest in the T12 vertebral body. There is disc desiccation at L4-L5. Cord: The conus tip ends at the L1 level. It is of normal size and signal intensity. T12-L1: No disc herniations or bulges are present. No central spinal canal or neural foraminal stenos is. L1-2: No disc herniations or bulges are present. No central spinal canal or neural foraminal stenosis . L2-3: No disc herniations or bulges are present. No central spinal canal or neural foraminal stenosis . L3-4: There is mild disc protrusion into the neural foramen bilaterally. No significant central spin al canal stenosis is seen. There is very mild narrowing of the neural foramen bilaterally. L4-5: There is a mild diffuse disc bulge which extends into the neural foramen. No significant centr al spinal canal stenosis is seen. No significant neural foraminal stenosis is seen. L5-S1: No disc herniations or bulges are present. No central spinal canal or neural foraminal stenosi s. Soft tissues: The visualized SI joints and sacrum are well maintained. The paraspinal soft tissues ar e unremarkable. IMPRESSION: 1. Mild narrowing of the neural foramen at L3-L4 bilaterally. 2. No significant central spinal canal stenosis. DATA REPOSITORY:
== END 2022-10-29 02:31 ==
LOC: DI 02:12
PROVIDERS: PCP Family Medicine; Visit Provider Psychiatry & Neurology Neurology
DX: M54.15 Radiculopathy, thoracolumbar region (principal); R20.2 Paresthesia of skin; M99.53 Intervertebral disc stenosis of neural canal of lumbar region
CPT/HCPCS: 70551; 72148

== ENCOUNTER 2023-02-15 11:27 | Outpatient (REF) | payer MEDICAID, SELFPAY ==
[2023-02-15 15:45] LABS: HCT 40.6 % (36.0-46.0); HGB 12.9 g/dL (11.2-15.7); MCH 25.9 pg (27.0-33.0); MCHC 31.8 % (32.0-36.0); MCV 82 fL (80-95); MPV 9.8 fL (8.0-11.0); Platelet Count 257 10^3/uL (130-400); RBC 4.98 10^6/uL (3.93-5.22); RDW 15.5 % (11.7-14.6); RDW-SD 45.8 fL; WBC 7.86 10^3/uL (4.4-10.8)
[2023-02-15 16:33] LABS: ALT 25 U/L (14-59); AST 13 U/L (15-37); Albumin 3.6 g/dL (3.4-5.0); Alkaline Phosphatase 80 U/L (46-116); Anion Gap 11.7 mmol/L (3-11); BUN 10 mg/dL (7-18); Bilirubin, Total 0.2 mg/dL (0.2-1.0); CO2 21.3 mmol/L (21.0-32.0); CREATININE 0.8 mg/dL (0.55-1.02); Calcium 9.4 mg/dL (8.5-10.1); Chloride 106 mmol/L (98-107); Ferritin 8 ng/mL (8-252); Glucose 93 mg/dL (74-106); Potassium 3.5 mmol/L (3.5-5.1); Sodium 139 mmol/L (136-145); Total Protein 7.6 g/dL (6.4-8.2)
== END 2023-02-15 11:28 | disposition home or self-care (01) ==
LOC: NCHCN 11:27
PROVIDERS: Visit Provider Family Medicine
DX: D50.9 Iron deficiency anemia, unspecified (principal); G47.33 Obstructive sleep apnea (adult) (pediatric); Q79.60 Ehlers-Danlos syndrome, unspecified
CPT/HCPCS: 80053; 85027; 82728

== ENCOUNTER 2023-03-03 15:44 | Outpatient (CLI) | payer MEDICAID, SELFPAY ==
--- NOTE | 2023-03-03 14:04 | DI.RAD_ITS ---
Exam(s) XR SHOULDER LT COMPLETE 2+V EXAM: XR SHOULDER LT COMPLETE 2+V CLINICAL HISTORY: SHOULDER PAIN. TECHNIQUE: 2D digital imaging was performed. Two views. COMPARISON: No exams were available for comparison FINDINGS: BONES: No acute fracture is present. No bony destructive lesion is seen. JOINTS: No dislocation present. The AC joint is not widened. No significant spurring. Minimal spur ring at the glenoid. SOFT TISSUE: Normal. IMPRESSION: Minimal degenerative changes at the glenoid. DATA REPOSITORY: RADIATION DOSE DELIVERED:
== END 2023-03-03 15:45 | disposition home or self-care (01) ==
LOC: DIORS 15:44
PROVIDERS: PCP Family Medicine; Visit Provider Student in an Organized Health Care Education/Training Program
DX: M25.512 Pain in left shoulder (principal)
CPT/HCPCS: 73030

== ENCOUNTER 2023-05-10 08:23 | Day surgery (SDC) | payer MEDICAID, SELFPAY ==
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
--- NOTE | 2023-05-09 18:27 | W.PM.DSUDISC ---
Date of service: 05/10/23 Time of Service: 10:06 Discharge Plan Disposition Patient Disposition: Home Condition: Good Discharge Details Reason For Visit: screening colonoscopy Attending Provider: Shant Bertrand Primary Care Provider: Parminder Rivera Home Meds and New Rx's Prescriptions: Continued atomoxetine [Strattera] 10 mg capsule 40 mg PO QAM cyclobenzaprine 10 mg tablet 10 mg PO Q8H PRN hydroxyzine pamoate [Vistaril] 25 mg capsule 25 mg PO QID PRN Patient Comments: pt. reports over a month since used meclizine 25 mg tablet 25 mg PO TID PRN gabapentin 300 mg capsule 900 mg PO TID venlafaxine 225 mg tablet extended release 24hr 225 mg PO DAILY aripiprazole [Abilify] 2 mg tablet 4 mg PO DAILY naloxone 4 mg/actuation spray,non-aerosol 4 mg intranasal Q2M PRN Rx Instructions: spray 1 dose into ONE nostril; alternate nostrils w each dose until help arrives omeprazole 20 mg capsule,delayed release(DR/EC) 20 mg PO DAILY famotidine 10 mg tablet 10 mg PO DAILY Systane Complete 0.6 % drops 1 drp ophthalmic (eye) DAILY PRN loteprednol etabonate 0.5 % drops,gel 1 drp ophthalmic (eye) QID Rx Instructions: start 24 hours after surgery rizatriptan 10 mg tablet See Rx Instructions PO .COMPLEX Rx Instructions: take 1 tab at onset of headache; if no relief may repeat 1 tab after at least 2 hrs; max = 3 tabs/24 hr PO metoprolol tartrate 50 mg tablet 50 mg PO BID epinephrine 0.3 mg/0.3 mL auto-injector 0.3 mg IM Q5-15M PRN Rx Instructions: do not exceed 3 doses per episode Adult 50 Plus Probiotic 4 billion cell capsule See Rx Instructions .ROUTE .COMPLEX PRN Rx Instructions: as needed B-complex with vitamin C Tablet 1 tab PO DAILY amlodipine 10 mg tablet 10 mg PO DAILY diclofenac sodium 1 % gel 2 g topical QID Rx Instructions: apply to single elbow, wrist or hand; for hand includes palm/fingers/back of hand acetaminophen 325 mg tablet 325 mg PO ONCE PRN mupirocin 2 % ointment 1 applic topical BID ketoconazole 2 % cream 1 applic topical DAILY topiramate 50 mg tablet 100 mg PO BID tramadol 50 mg Tablet 50 mg PO QID lisinopril 20 mg tablet 20 mg PO DAILY Qty: 30 0RF meloxicam 7.5 mg Tablet 7.5 mg PO DAILY PRN Discontinued bisacodyl [Dulcolax (bisacodyl)] 5 mg tablet,delayed release (DR/EC) 5 mg PO ONCE Qty: 4 0RF Rx Instructions: Take per colonoscopy instructions provided by ordering providers office polyethylene glycol 3350 17 gram/dose powder 17 g PO ONCE Qty: 238 0RF Rx Instructions: Take per colonoscopy instructions provided by ordering providers office Discharge Instructions Instructions: Diverticulosis (GEN), Colorectal Polyps (GEN), Diverticulosis Diet (GEN) Additional Instructions: Viktoriya, we were able to complete your colonoscopy today without any difficulty. I did find 3 polyps. I removed them completely. It will take a week or 2 for me to get the results of the polyp report, and I will use that information to recommend the timing of your next colonoscopy. Incidentally, he also have a foreign body in your large intestine. It looks like some type of bleed. It should not be dangerous, and I would expect you to pass in your stools without any issue. I also found some diverticulosis. Diverticula are weak spots in the colon wall that typically accumulate with age. I have attached a little bit of information here regarding general management of diverticular disease. Essentially, I recommend a diet that is rich in fiber, staying well-hydrated, and avoiding symptoms of constipation. If you have any questions in the meantime, please do not hesitate to call. 1. If tolerated, consume a soft, low fiber diet for 1-2 days. [address] not drive, drink alcohol, operate machinery, make critical decisions, or do activities that require coordination or balance for 24 hours. 3. Because air was put into your colon during the procedure, expelling air from your rectum (passing gas or farting) is normal. 4. You may not have a bowel movement for 1-3 days because of the colonoscopy prep. This is normal. 5. Go directly to the emergency room if you notice any of the following: Develop chills (warm to touch), or if you have a thermometer and your temperature is above 101 Difficulty breathing or difficultly swallowing Persistent vomiting Severe abdominal pain, other than gas cramps Severe chest pain Black, tarry stools Any bleeding ? exceeding one tablespoon 6. Call your physician if the site where your intravenous was started becomes red, swollen, painful, and warm to touch. 7. Your physician has reviewed your pre-procedure medications. Please continue to take those medications as previously ordered. You will be given specific information/education regarding any changes to your medications before leaving. Activity:: Activity as Tolerated Diet:: As Tolerated Discharge Orders Discharge Orders: Discharge Order (Routine); Ordered 05/09/23 Ordered By: Shant Bertrand DS: Diagnosis Discharge Diagnosis (1) Screen for colon cancer: Status: Acute Asessment and Plan: Follow-up on polypectomy results
--- NOTE | 2023-05-09 18:30 | COLE_ITS ---
Date of service: 05/10/23 Time of Service: 10:09 Colonoscopy Report Date of procedure: 05/10/23 Pre-op diagnosis general: screening colonoscopy Post-op diagnosis procedure note: other (Diverticulosis, colorectal polyps, colon foreign body) Procedure: Colonoscopy with polypectomy Surgeon: Shant Bertrand Anesthesia Type: General:No Airway Estimated blood loss (mL): 5 Pathology: other (0.5 cm cecal polyp) Complications: None Disposition: same day Indications: Viktoriya is a 47 year old woman with a fmaily history of colon cancer who needs her next screening colonoscopy Prep: Miralax/Dulcolax Procedure Start Time: 09:37 Procedure End Time: 09:57 Retraction Time: 14 Findings: Cecal polyp, immediately adjacent to the appendiceal orifice. Procedure Description: After the induction of monitored anesthetic care, and with the patient in left lateral decubitus position, I began by performing an external anorectal exam.? Perineum and skin were normal, as was the anal verge.? There was no evidence of external hemorrhoids.? Next, I performed a digital rectal exam.? I did not appreciate any abnormal findings.? Next, I advanced a colonoscope into the rectal vault.? I performed retroflexion.? This looked normal.? Using insufflation, I then advanced the colonoscope beyond the rectal folds and into the sigmoid colon before advancing towards the cecum.? Excellent.? The scope was noted to be in the cecum by identification of the ileocecal valve and appendiceal orifice.? Immediately adjacent to the appendiceal orifice was a 0.5 cm flat polyp. I removed this with cold forceps without any issue. There was minimal bleeding. Also within the cecum was what appeared to be a foreign body. It was extremely well-circumscribed, and had a central dimple. It looks like some type of a bead. It was quite mobile. I left it alone. I then began withdrawing the colonoscope using repeated irrigation as necessary for full evaluation of the colonic mucosa. There were some occasional sigmoid diverticula. ?Once the scope was withdrawn to the level of the rectum, great care was taken to examine portions of the rectal folds.? Within the upper portion of the rectum were 2 flat polyps. Both of these were less than 0.25 cm. Narrowband imaging was used to examine them. Generally, they seem consistent with hyperplastic polyps. However, to be safe, I did perform cold forcep polypectomy of both of these lesions. They were both removed completely with minimal bleeding. Finally, the scope was withdrawn and the patient was brought to the same-day surgery recovery unit as the anesthetic wore off. ?The findings and instructions were shared with the patient prior to discharge. [place] Bowel Prep [place] Bowel Prep Right Colon: 3 Left Colon: 3 Transverse Colon: 3 Total Score: 9
[2023-05-10 08:58] VITALS: BP 146/93; PULSE 64; RESP 16; TEMP 36.6; O2SAT 97
[2023-05-10] MEDS: Lactated Ringers 1,000 ML 80 ML IV (09:10)
[2023-05-10 09:11] VITALS: BMI 39.1
--- NOTE | 2023-05-10 09:45 | BOWEL_PTH ---
PATIENT: Viktoriya Van LOC: [facility] U#:[id number] AGE/SX: 47/F ROOM: RE05/10/[address]: Shant Bertrand MD : 1975 BED: DIS: 05/10/2023 SPEC #: [id number] RECD: 05/10/23 13:00 STATUS: CAROLYN RE #: [id number] INESSA: 05/10/23 09:[address]: Shant Bertrand DEPT: Surgical Specimen RECD BY: July Vega ENTERED: 05/10/23 13:01 SP TYPE: Bowel OTHR DR: Parminder Rivera Tissues: 1 - BIOPSY BOWEL 2 - BIOPSY BOWEL Procedures: GROSS AND MICRO LEVEL 4 Comments: [id number]
[2023-05-10 10:05] VITALS: BP 131/86; PULSE 68; RESP 16; TEMP 36.4; O2SAT 99
--- NOTE | 2023-05-10 10:11 | W.ANESPOSTOP ---
Postoperative Evaluation Date, Time and Location Date Performed: 05/10/23 Time Performed: 10:12 Patient Location: Day Surgery Unit Vital Signs Most Recent Imported Vital Signs: Most Recent Vital Signs Temp Pulse Resp BP Pulse Ox 36.4 C L 68 16 131/86 99 05/10/23 10:05 05/10/23 10:05 05/10/23 10:05 05/10/23 10:05 05/10/23 10:05 Pain Score Most Recent Pain Score: Most Recent Pain Score Pain Level 0 05/10/23 10:05 Assessment Mental Status: Awake (Alert & Oriented to Patient Baseline) Airway and Respiratory Function: Patent airway with normal (patient baseline) respiratory exam Cardiovascular Function: Hemodynamically Stable Hydration Status: Adequately Hydrated Nausea & Vomiting: No Nausea or Vomiting Pain: Pt. Denies Any Pain Peripheral Nerve Block: Patient did not receive a nerve block
[2023-05-10 10:21] VITALS: BP 138/91; PULSE 67; RESP 16; TEMP 36.4; O2SAT 99
== END 2023-05-10 10:45 | disposition home or self-care (01) ==
PROVIDERS: PCP Family Medicine; Visit Provider Surgery
PROC: 0DJD8ZZ Inspection of Lower Intestinal Tract, Via Natural or Artificial Opening Endoscopic (ICD-10-PCS; CPT 45378; principal; 2023-05-10 09:45)
DX: Z12.11 Encounter for screening for malignant neoplasm of colon (principal); D12.0 Benign neoplasm of cecum; K57.30 Diverticulosis of large intestine without perforation or abscess without bleeding; T18.4XXA Foreign body in colon, initial encounter; Z80.0 Family history of malignant neoplasm of digestive organs; I10 Essential (primary) hypertension
CPT/HCPCS: 45380; 81025; 88305

== ENCOUNTER 2023-05-27 19:57 | Outpatient (REF) | payer MEDICAID, SELFPAY ==
[2023-05-27 21:28] LABS: Ferritin 13 ng/mL (8-252); Vitamin B12 426 pg/mL (193-986)
== END 2023-05-27 19:58 | disposition home or self-care (01) ==
LOC: NCHCN 19:57
PROVIDERS: PCP Family Medicine; Visit Provider Family Medicine
DX: R53.83 Other fatigue (principal); D50.9 Iron deficiency anemia, unspecified; F41.8 Other specified anxiety disorders; I10 Essential (primary) hypertension; G62.89 Other specified polyneuropathies; R20.2 Paresthesia of skin
CPT/HCPCS: 82607; 82728

== ENCOUNTER → 2023-06-10 02:42 | Outpatient (CLI) | payer MEDICAID, SELFPAY ==
--- NOTE | 2023-06-10 14:25 | DI.MRI_ITS ---
Exam(s) MR UPPER JOINT LT WO EXAM: MR UPPER JOINT LT WO CLINICAL HISTORY: L SHOULDER PAIN,INSTABILITY LT SHOULDER JOINT,TENDINOPATHY,M25.312,M67.922. TECHNIQUE: Multiplanar multisequence MRI was performed. COMPARISON: Plain films 03 March 2023 FINDINGS: BONES: There is no fracture or contusion pattern. JOINTS:The acromioclavicular joint is normal. The glenohumeral joint is normal. TENDONS: Supraspinatus: Small focus of high signal in the distal, anterior supraspinatus tendon could indicate a small partial tear. Infraspinatus: Minimal edema questioned in infraspinatus tendon. Subscapularis: Unremarkable. Teres Minor: Unremarkable. Biceps and [place]: Unremarkable. MUSCLES: Unremarkable. GLENOID LABRUM: Unremarkable on this noncontrast examination. SOFT TISSUES: Unremarkable. OTHER: Subacromial and subdeltoid bursae shows minimal fluid. . IMPRESSION: Small partial tear anterior distal supraspinatus tendon. Mild infraspinatus tendinosis. DATA REPOSITORY:
== END ==
PROVIDERS: PCP Family Medicine; Visit Provider Student in an Organized Health Care Education/Training Program
DX: M75.111 Incomplete rotator cuff tear or rupture of right shoulder, not specified as traumatic (principal)
CPT/HCPCS: 73221

== ENCOUNTER 2023-06-22 14:21 | Outpatient (REF) | payer MEDICAID, SELFPAY ==
--- NOTE | 2023-06-22 13:40 | ENDOMET_PTH ---
PATIENT: Viktoriya Van LOC: [facility] U#:[id number] AGE/SX: 47/F ROOM: RE06/22/[address]: Jen Barillsa : 1975 BED: DIS: 06/22/2023 SPEC #: [id number] RECD: 06/23/23 12:35 STATUS: CAROLYN REQ #: [id number] INESSA: 06/22/23 13:[address]: Jen Barillas DEPT: Surgical Specimen RECD BY: July Vega ENTERED: 06/23/23 12:36 SP TYPE: Endomet OTHR DR: Parminder Rivera Tissues: 1 - ENDOMETRIUM BX/TOIETTE Procedures: GROSS AND MICRO LEVEL 4 Comments: [id number]
--- NOTE | 2023-06-22 13:40 | PAPFT_PTH ---
PATIENT: Viktoriya Van LOC: [facility] U#:[id number] AGE/SX: 47/F ROOM: RE06/22/[address]: Jen Barillas : 1975 BED: DIS: 06/22/2023 SPEC #: [id number] RECD: 06/23/23 12:53 STATUS: CAROLYN REMinoo #: [id number] INESSA: 06/22/23 13:[address]: Jen Barillas DEPT: [facility] Cytology RECD BY: July Vega ENTERED: 06/23/23 12:53 SP TYPE: PAPFT OTHR DR: Parminder Rivera Tissues: 1 - CX/ENDOCX FOR PAP SMEARS Procedures: PAP THIN PREP/UVM Screening HPV DNA PROBE Comments: [id number]
== END 2023-06-22 14:22 | disposition home or self-care (01) ==
LOC: LBN 14:21
PROVIDERS: PCP Family Medicine; Visit Provider Obstetrics & Gynecology Gynecology
DX: Z12.4 Encounter for screening for malignant neoplasm of cervix (principal); N93.8 Other specified abnormal uterine and vaginal bleeding; K80.80 Other cholelithiasis without obstruction
CPT/HCPCS: 88142; 88305; 87624

== ENCOUNTER 2023-06-24 13:20 | Observation (INO) | payer MEDICAID, SELFPAY ==
[2023-06-24] VITALS (28 sets, daily range): BP systolic 142–163; BP diastolic 78–95; PULSE 65–83; RESP 13–25; TEMP 37; O2SAT 96–100
--- NOTE | 2023-06-24 13:15 | RT.EKG_ITS ---
APPROVED REPORT Exam: Resting ECG Reason for Exam: chest pain Patient Location: E HR:80 bpm ECG Measurements Heart Rate 80 AXIS TN 162 P 29 QRSd 109 QRS -16 QT 415 T 27 QTc 479 Conclusion Sinus rhythm...normal P axis, V-rate 60- 99 Low voltage, precordial leads...precordial leads <1.0mV
--- NOTE | 2023-06-24 13:45 | DI.CT_ITS ---
Exam(s) CT CHEST PE CTA EXAM: CT CHEST PE CTA CLINICAL HISTORY: chest pain. TECHNIQUE: Imaging Protocol: CT angiography of the chest was performed using pulmonary embolus bridgett col. Multi planar reconstructions were performed. CONTRAST MATERIAL: Intravenous: Omnipaque 350 Contrast volume: 100 cc COMPARISON: No exams were available for comparison FINDINGS: CHEST: PULMONARY ARTERIES: There are no intraluminal filling defects to suggest acute pulmonary emboli.No ev idence of pulmonary infarction. LUNGS: There is a 1 cm calcified granuloma in the right middle lobe. There are mild increased markin gs in the anterior segment of the right upper lobe. No confluent infiltrates. No pleural effusions. No ominous nodules. No findings in the trachea and mainstem bronchi.. There are no pleural effusi ons. MEDIASTINUM: There is no hilar nor mediastinal adenopathy. For few calcified right subcarinal lymph n odes are noted, commensurate with finding of calcified granuloma in the right lung. There is no path ologic adenopathy evident in the mediastinum. CARDIAC: Heart size is upper normal. There is no pericardial effusion.Caliber of the thoracic aorta is within normal limits. There is an aberrant right subclavian artery noted. No significant shift of the interventricular septum and no evidence of aortic dissection. Diameter of the thoracic aorta is normal. PARTIALLY VISUALIZED UPPERMOST ABDOMEN: Cholelithiasis noted. No adrenal masses. OSSEOUS: No significant osseous lesions.No fractures. IMPRESSION: 1. No evidence of acute pulmonary emboli. No evidence of pulmonary infarction.No pleural effusions. 2. Mild increased markings anterior segment right upper lobe. No pleural effusions. 3. Incidentally noted is an aberrant right subclavian artery. Aortic arch exhibits normal diameter a nd there is no evidence of aortic dissection nor pericardial effusion. RADIATION DOSE DELIVERED: 551.02mGy.cm Total DLP DATA REPOSITORY: All CT scans at this facility are submitted to the National Radiology Data Registry (NRDR) Dose Index Registry (DIR) with the [employer] (ACR). RADIATION OPTIMIZATION: All CT scans at this facility use at least one of these dose optimization te chniques: automated exposure control; mA and/or kV adjustment per patient size (includes targeted exa ms where dose is matched to clinical indication); or iterative reconstruction.
--- NOTE | 2023-06-24 13:47 | W.ED.GENAD ---
HPI General Mode of arrival: EMS. Date/Time Provider Initiated Documentation: 06/24/23 13:29. Limitations to Documentation: no limitations. Information obtained by: patient. HPI Narrative: 47-year-old female with multiple medical problems including Rajni-Danlos syndrome, presents with chief complaint of chest pain. Patient notes pain started suddenly around 11 AM and has persisted. Pain was severe worse than childbirth at 1 point. Pain described as somewhere between ache and sharp. Pain was localized to left lower anterior chest and radiated to central chest and then back. Pain worse with deep inspiration. Pain now intermittent and significantly improved, rated mild. She has associated nausea. Related Data Home Medications Medication Instructions Recorded Confirmed lactobacillus combination no.9 4 See Rx Instructions .Route 04/14/22 06/24/23 billion cell capsule (Adult 50 .COMPLEX PRN Plus Probiotic) loteprednol etabonate 0.5 % eye 1 drp ophthalmic (eye) QID 04/14/22 06/24/23 gel drops metoprolol tartrate 50 mg tablet 50 mg PO BID 04/14/22 06/24/23 propylene glycol 0.6 % eye drops 1 drp ophthalmic (eye) DAILY PRN 04/14/22 06/24/23 (Systane Complete) rizatriptan 10 mg tablet See Rx Instructions PO .COMPLEX 04/14/22 06/24/23 acetaminophen 325 mg tablet 325 mg PO ONCE PRN 05/05/22 06/24/23 amlodipine 10 mg tablet 10 mg PO DAILY 05/05/22 06/24/23 diclofenac sodium 1 % topical gel 2 g topical QID 05/05/22 06/24/23 ketoconazole 2 % topical cream 1 applic topical DAILY 05/05/22 06/24/23 mupirocin 2 % topical ointment 1 applic topical BID 05/05/22 06/24/23 naloxone 4 mg/actuation nasal spray 4 mg intranasal Q2M PRN 08/27/22 06/24/23 aripiprazole 2 mg tablet (Abilify) 4 mg PO DAILY 02/23/23 06/24/23 gabapentin 300 mg capsule 900 mg PO TID 02/23/23 06/24/23 venlafaxine 225 mg tablet,extended 225 mg PO DAILY 02/23/23 06/24/23 release 24 hr acetaminophen 325 mg capsule 325 mg PO Q4H PRN 02/25/23 06/24/23 amlodipine 10 mg tablet 10 mg PO DAILY 02/25/23 06/24/23 aripiprazole 2 mg tablet (Abilify) 2 mg PO DAILY 02/25/23 06/24/23 cholecalciferol (vitamin D3) 25 25 mcg PO DAILY 02/25/23 06/24/23 mcg (1,000 unit) capsule cyclobenzaprine 10 mg tablet 10 mg PO TID PRN 02/25/23 06/24/23 famotidine 10 mg tablet 10 mg PO DAILY 02/25/23 06/24/23 gabapentin 300 mg capsule 900 mg PO TID 02/25/23 06/24/23 lisinopril 10 mg tablet 10 mg PO DAILY 02/25/23 06/24/23 omeprazole 20 mg capsule,delayed 20 mg PO DAILY 02/25/23 06/24/23 release vitamin B complex 1 cap PO DAILY 02/25/23 06/24/23 topiramate 50 mg tablet 100 mg PO BID 03/03/23 06/24/23 tramadol 50 mg tablet 50 mg PO Q6H PRN 03/03/23 06/24/23 atomoxetine 10 mg capsule 40 mg PO QAM 04/29/23 05/10/23 (Strattera) Allergies Allergy/AdvReac Type Severity Reaction Status Date / Time adhesive tape Allergy Severe Verified 06/24/23 13:24 corn Allergy Severe Verified 06/24/23 13:24 COVID-19 vacc, bv (Orig, Allergy Severe Unverified 06/24/23 13:24 Omicron BA.4/5) (Moderna) [From Moderna COVID Bival(6m up)(PF)] peanut Allergy Severe Verified 06/24/23 13:24 watermelon Allergy Severe Verified 06/24/23 13:24 wheat Allergy Severe Verified 06/24/23 13:24 rice Allergy Intermediate Skin Rash Unverified 06/24/23 13:24 Sulfa (Sulfonamide Allergy Mild vomiting Unverified 06/24/23 13:24 Antibiotics) latex Allergy Verified 06/24/23 13:24 RICE Allergy Intermediate Uncoded 06/24/23 13:24 WATERMELON Allergy Intermediate Uncoded 06/24/23 13:24 General Stated Complaint: Chest Pain DELL: 3 Review of Systems All systems reviewed & are unremarkable except as noted in HPI and below Constitutional Constitutional: Denies fever(s) Cardiovascular Cardiovascular: Reports as per HPI Exam Const General: cooperative and no acute distress HENMT Mouth: moist mucous membranes Eyes Conjunctivae: normal conjunctivae Sclera: normal sclerae Neck Neck: trachea midline Resp Auscultation: clear to auscultation bilaterally, no rales, no rhonchi and no wheezes Cardio Rate: regular rate and not tachycardic Rhythm: regular rhythm GI Palpation: soft, not firm, no guarding, no masses, not rigid and nontender Skin General skin exam: no rashes or lesions noted Neuro General: patient alert, patient awake and tone normal Extrem General: no calf tenderness and no edema Psych Appearance: grossly normal Mental Status: mental status grossly normal Speech and Movement: speech and movement normal Course Vital Signs Vital signs: Vital Signs Temperature 37 C 06/24/23 13:20 Pulse 82 06/24/23 13:20 Respiratory Rate 17 06/24/23 13:20 Blood Pressure 145/95 H 06/24/23 13:20 Pulse Oximetry 99 06/24/23 13:20 Temperature 37 C 06/24/23 13:20 Temperature Source Temporal Artery Scan 06/24/23 13:20 Pulse 82 06/24/23 13:20 Respiratory Rate 17 06/24/23 13:20 Blood Pressure 145/95 H 06/24/23 13:20 Blood Pressure Position Supine 06/24/23 13:20 Pulse Oximetry 99 06/24/23 13:20 Oxygen Delivery Method Room Air 06/24/23 13:20 Oxygen Flow Rate 0 06/24/23 13:20 Pain Level 4 06/24/23 13:20 Medical Decision Making 1345 --47-year-old female with multimedical problems including history of hypertension and smoking, Rajni-Danlos, here today with sudden onset of chest pain with radiation to her back and left neck, worse with deep breath. Pain was severe and now improved and intermittent. Patient is hemodynamically stable. Saturating well in no respiratory distress. Considered ACS. EKG was reviewed and interpreted by me: Sinus rhythm 80 bpm, low voltage noted precordial leads. No STEMI. I will check troponin and plan to trend. Consider acute pulmonary embolism. Plan to obtain CTA of the chest. Differential also includes aortic dissection although I think this is less likely given age and presentation. 1635 --CT of the chest was interpreted by radiology: 1. No evidence of acute pulmonary emboli. No evidence of pulmonary infarction.No pleural effusions. 2. Mild increased markings anterior segment right upper lobe. No pleural effusions. 3. Incidentally noted is an aberrant right subclavian artery. Aortic arch exhibits normal diameter and there is no evidence of aortic dissection nor pericardial effusion. Labs reviewed and initial troponin negative. Delta troponin negative. Mild leukocytosis noted of 12,000. AST 53. ALT normal. Alk phos normal. Lipase pending. Patient was reassessed and continues to have discomfort although not as severe as prior. I do note on CT of the chest what appears to be gallstone. Bedside right upper quadrant ultrasound was performed by me and there are multiple biliary stones with some tenderness over the area. I suspect biliary colic. 1649 --I spoke with Dr. Bertrand, on-call general surgeon, discussed likelihood of biliary colic and ongoing symptoms with leukocytosis. He will admit the patient for observation tonight. Should pain continue to worsen tonight, consider cholecystectomy tomorrow. Lipase elevated >375. Suspect gallstone pancreatitis. Dr. Bertrand to admit the patient. Quality:[facility] Health Related Social Needs: No Data to Display PFSH All Active Problems (Updated 06/24/23 @ 16:52 by Vik Espinoza MD) Acute pancreatitis (Acute) Biliary colic (Acute) Chest pain (Acute) Abnormal perimenopausal bleeding (Acute) Instability of left shoulder joint (Acute) Tendinopathy of left biceps tendon (Acute) Chiari malformation type I (Acute) Hypertension (Chronic) GERD (gastroesophageal reflux disease) (Chronic) Obstructive sleep apnea (Chronic) Chronic migraine without aura (Acute) Anemia, iron deficiency (Acute) Anxiety and depression (Chronic) Degenerative disc disease, cervical (Acute) Degenerative disc disease, lumbar (Acute) Chronic pain syndrome (Chronic) Rajni-Danlos syndrome (Acute) Sessile serrated polyp of colon (Acute ~05/10/23) X1, 2 hyperplastic Radicular syndrome of right leg (Acute) Paresthesias (Acute) Idiopathic small fiber peripheral neuropathy (Acute) Dysphagia (Acute) Bilateral hip pain (Acute) Thoracic outlet syndrome (Acute) Chronic pain syndrome (Chronic) Hypertension (Chronic) Rajni-Danlos syndrome (Acute) Medical History Screen for colon cancer Essential hypertension Anxiety Degenerative disc disease, lumbar Degenerative disc disease, cervical Chronic low back pain without sciatica Incontinence in female Tobacco use Cervical radiculopathy Fatigue Pain, joint, ankle, left Chiari I malformation Major depression GERD (gastroesophageal reflux disease) Intractable chronic migraine without aura JOSE (obstructive sleep apnea) Surgical History Hx of colonoscopy (~04/2023) S/P hernia repair Family History Mother Hypertension Diabetes Heart disease Father Hyperlipidemia Social History Smoking/Tobacco Use Status: Current every day Tobacco Type: cigarettes Quit status: has quit before Smoking risk assessment performed?: Yes Alcohol Intake: former Drug use: Occasionally Substance use type: marijuana Details: marijuana: t-14 Household members: spouse Housing: apartment Number of Children: 2 current occupation: Does not work Current gender identity: female Do you feel safe at home: Yes Do you feel safe in your relationship?: Yes History History 4 Para 2 Hx # Term Pregnancies 2 Multiple births Hx # Pregnancies Ectopic pregnancies AB induced Hx Number of Living Children 2 AB spontaneous 2 Discharge Plan Disposition Patient Disposition: Admit to [facility] Condition: Serious Discharge Details Chief Complaint: Chest Pain Clinical Impression: Chest pain, Biliary colic, Acute pancreatitis Primary Care Provider: Parminder Rivera ED Provider: Vik Espinoza [place] Meds and New Rx's Prescriptions: No Action atomoxetine [Strattera] 10 mg capsule 40 mg PO QAM gabapentin 300 mg capsule 900 mg PO TID venlafaxine 225 mg tablet extended release 24hr 225 mg PO DAILY aripiprazole [Abilify] 2 mg tablet 4 mg PO DAILY naloxone 4 mg/actuation spray,non-aerosol 4 mg intranasal Q2M PRN Rx Instructions: spray 1 dose into ONE nostril; alternate nostrils w each dose until help arrives Systane Complete 0.6 % drops 1 drp ophthalmic (eye) DAILY PRN loteprednol etabonate 0.5 % drops,gel 1 drp ophthalmic (eye) QID Rx Instructions: start 24 hours after surgery rizatriptan 10 mg tablet See Rx Instructions PO .COMPLEX Rx Instructions: take 1 tab at onset of headache; if no relief may repeat 1 tab after at least 2 hrs; max = 3 tabs/24 hr PO metoprolol tartrate 50 mg tablet 50 mg PO BID Adult 50 Plus Probiotic 4 billion cell capsule See Rx Instructions .ROUTE .COMPLEX PRN Rx Instructions: as needed amlodipine 10 mg tablet 10 mg PO DAILY diclofenac sodium 1 % gel 2 g topical QID Rx Instructions: apply to single elbow, wrist or hand; for hand includes palm/fingers/back of hand acetaminophen 325 mg tablet 325 mg PO ONCE PRN mupirocin 2 % ointment 1 applic topical BID ketoconazole 2 % cream 1 applic topical DAILY famotidine 10 mg tablet 10 mg PO DAILY omeprazole 20 mg capsule,delayed release(DR/EC) 20 mg PO DAILY lisinopril 10 mg tablet 10 mg PO DAILY gabapentin 300 mg capsule 900 mg PO TID aripiprazole [Abilify] 2 mg tablet 2 mg PO DAILY vitamin B complex Capsule 1 cap PO DAILY cyclobenzaprine 10 mg tablet 10 mg PO TID PRN amlodipine 10 mg tablet 10 mg PO DAILY cholecalciferol (vitamin D3) 25 mcg (1,000 unit) capsule 25 mcg PO DAILY acetaminophen 325 mg capsule 325 mg PO Q4H PRN tramadol 50 mg tablet 50 mg PO Q6H PRN topiramate 50 mg tablet 100 mg PO BID
[2023-06-24 14:27] LABS: Abs Immature Grans 0.06 10^3/uL (0.0-0.06); Absolute Basophil Count 0.05 10^3/uL (0.0-0.2); Basophils % 0.4; HCT 44.4 % (36.0-46.0); HGB 14.3 g/dL (11.2-15.7); Immature Grans % 0.5; Lymphocytes % 16.7; MCH 27.9 pg (27.0-33.0); MCHC 32.2 % (32.0-36.0); MCV 87 fL (80-95); Monocytes % 4.8; Neutrophils % 76.6; Platelet Count 237 10^3/uL (130-400); RBC 5.13 10^6/uL (3.93-5.22); RDW 14.4 % (11.7-14.6); RDW-SD 45.5 fL; WBC 12.59 10^3/uL (4.4-10.8)
[2023-06-24 14:29] LABS: Absolute Eosinophil Count 0.13 10^3/uL (0.0-0.7); Absolute Neutrophil Count 9.64 10^3/uL (1.2-6.7)
[2023-06-24 14:48] LABS: ALT 39 U/L (14-59); AST 53 U/L (15-37); Albumin 3.4 g/dL (3.4-5.0); Alkaline Phosphatase 91 U/L (46-116); Anion Gap 7.6 mmol/L (3-11); BUN 8 mg/dL (7-18); Bilirubin, Total 0.3 mg/dL (0.2-1.0); CO2 28.4 mmol/L (21.0-32.0); CREATININE 0.9 mg/dL (0.55-1.02); Calcium 8.7 mg/dL (8.5-10.1); Chloride 107 mmol/L (98-107); Estimated GFR 79.35 (mL/min/1.73m2); Glucose 97 mg/dL (74-106); Magnesium 2.1 mg/dL (1.8-2.4); Potassium 3.5 mmol/L (3.5-5.1); Sodium 143 mmol/L (136-145); Total Protein 7.4 g/dL (6.4-8.2); Troponin I < 50 ng/L (< or =60)
[2023-06-24] MEDS: Omnipaque 350 MG/ML 100 ML BTL IJ (15:03)
[2023-06-24 16:30] LABS: Troponin I < 50 ng/L (< or =60)
[2023-06-24 16:49] LABS: Lipase > 375 U/L (16-77)
--- NOTE | 2023-06-24 17:07 | HPE_ITS ---
Date of service: 06/24/23 Time of Service: 17:07 Assessment and Plan Assessment and plan (1) Acute pancreatitis: Status: Acute Assessment and plan: This seems most consistent with gallstone pancreatitis, she is not an alcohol, and triglycerides are normal. Furthermore, the presence of the small gallstones are certainly suspicious for some transient choledocholithiasis. Will follow-up on a MRCP to rule out choledocholithiasis, intra in the serum lipase. Hopefully, she will make a quick recovery, at which point I would recommend laparoscopic cholecystectomy to reduce likelihood of recurrence. History of Present Illness History of Present Illness Chief Complaint: chest pain Narrative: Viktoriya is 47 years old. She comes to the emergency department after the acute onset of chest, and may be a little bit of mid epigastric or middle back pain. It started quite quickly yesterday afternoon. It became more intense, and she called 911. During transport to the emergency department, she did notice that the ambulance had a bump, and she had change in her symptoms, slightly improved. Symptoms continue to improve through the evening. She underwent a cardiac workup, and CT angiogram to rule out a pulmonary embolism. Those were all negative. Subsequent biochemistry demonstrated elevated lipase, bedside ultrasound confirmed the presence of gallstones. Review of Systems Constitutional Constitutional: Denies fever(s), Denies malaise and Reports poor appetite Eyes Eyes: Reports system reviewed and no additional complaints, except as documented ENT Ears, Nose, Mouth, and Throat: Reports system reviewed and no additional complaints, except as documented Cardiovascular Cardiovascular: Reports chest pain and Denies dyspnea Respiratory Respiratory: Denies chest congestion, Denies cough and Denies dyspnea Gastrointestinal Gastrointestinal: Reports abdominal pain, Reports nausea and Denies vomiting Genitourinary Genitourinary: Reports system reviewed and no additional complaints, except as documented Musculoskeletal Musculoskeletal: Reports back pain Neurologic Neurologic: Reports system reviewed and no additional complaints, except as documented Psychiatric Psychiatric: Reports system reviewed and no additional complaints, except as documented Endocrine Endocrine: Reports system reviewed and no additional complaints, except as documented Hematologic/Lymphatic Hematologic/Lymphatic: Denies easy bleeding and Denies easy bruising PFSH All Active Problems Acute pancreatitis (Acute) Biliary colic (Acute) Chest pain (Acute) Abnormal perimenopausal bleeding (Acute) Instability of left shoulder joint (Acute) Tendinopathy of left biceps tendon (Acute) Chiari malformation type I (Acute) Hypertension (Chronic) GERD (gastroesophageal reflux disease) (Chronic) Obstructive sleep apnea (Chronic) Chronic migraine without aura (Acute) Anemia, iron deficiency (Acute) Anxiety and depression (Chronic) Degenerative disc disease, cervical (Acute) Degenerative disc disease, lumbar (Acute) Chronic pain syndrome (Chronic) Rajni-Danlos syndrome (Acute) Sessile serrated polyp of colon (Acute ~05/10/23) X1, 2 hyperplastic Radicular syndrome of right leg (Acute) Paresthesias (Acute) Idiopathic small fiber peripheral neuropathy (Acute) Dysphagia (Acute) Bilateral hip pain (Acute) Thoracic outlet syndrome (Acute) Chronic pain syndrome (Chronic) Hypertension (Chronic) Rajni-Danlos syndrome (Acute) Medical History Screen for colon cancer Essential hypertension Anxiety Degenerative disc disease, lumbar Degenerative disc disease, cervical Chronic low back pain without sciatica Incontinence in female Tobacco use Cervical radiculopathy Fatigue Pain, joint, ankle, left Chiari I malformation Major depression GERD (gastroesophageal reflux disease) Intractable chronic migraine without aura JOSE (obstructive sleep apnea) Surgical History Hx of colonoscopy (~04/2023) S/P hernia repair Family History Mother Hypertension Diabetes Heart disease Father Hyperlipidemia Social History Smoking/Tobacco Use Status: Current every day Tobacco Type: cigarettes Quit status: has quit before Smoking risk assessment performed?: Yes Alcohol Intake: former Drug use: Occasionally Substance use type: marijuana Details: marijuana: t-14 Household members: spouse Housing: apartment Number of Children: 2 current occupation: Does not work Current gender identity: female Do you feel safe at home: Yes Do you feel safe in your relationship?: Yes History History 2 4 Para 2 Hx # Term Pregnancies 2 Multiple births Hx # Pregnancies Ectopic pregnancies AB induced Hx Number of Living Children 2 AB spontaneous 2 Meds Allergies and Home Medications Allergies Allergy/AdvReac Type Severity Reaction Status Date / Time adhesive tape Allergy Severe Verified 06/24/23 13:24 corn Allergy Severe Verified 06/24/23 13:24 COVID-19 vacc, bv (Orig, Allergy Severe Unverified 06/24/23 13:24 Omicron BA.4/5) (Moderna) [From Moderna COVID Bival(6m up)(PF)] peanut Allergy Severe Verified 06/24/23 13:24 watermelon Allergy Severe Verified 06/24/23 13:24 wheat Allergy Severe Verified 06/24/23 13:24 rice Allergy Intermediate Skin Rash Unverified 06/24/23 13:24 Sulfa (Sulfonamide Allergy Mild vomiting Unverified 06/24/23 13:24 Antibiotics) latex Allergy Verified 06/24/23 13:24 RICE Allergy Intermediate Uncoded 06/24/23 13:24 WATERMELON Allergy Intermediate Uncoded 06/24/23 13:24 Home Medications Medication Instructions Recorded Confirmed Type lactobacillus combination no.9 4 See Rx Instructions .Route 04/14/22 06/24/23 History billion cell capsule (Adult 50 .COMPLEX PRN Plus Probiotic) loteprednol etabonate 0.5 % eye 1 drp ophthalmic (eye) QID 04/14/22 06/24/23 History gel drops metoprolol tartrate 50 mg tablet 50 mg PO BID 04/14/22 06/24/23 History propylene glycol 0.6 % eye drops 1 drp ophthalmic (eye) DAILY PRN 04/14/22 06/24/23 History (Systane Complete) rizatriptan 10 mg tablet See Rx Instructions PO .COMPLEX 04/14/22 06/24/23 History acetaminophen 325 mg tablet 325 mg PO ONCE PRN 05/05/22 06/24/23 History amlodipine 10 mg tablet 10 mg PO DAILY 05/05/22 06/24/23 History diclofenac sodium 1 % topical gel 2 g topical QID 05/05/22 06/24/23 History ketoconazole 2 % topical cream 1 applic topical DAILY 05/05/22 06/24/23 History mupirocin 2 % topical ointment 1 applic topical BID 05/05/22 06/24/23 History naloxone 4 mg/actuation nasal spray 4 mg intranasal Q2M PRN 08/27/22 06/24/23 History aripiprazole 2 mg tablet (Abilify) 4 mg PO DAILY 02/23/23 06/24/23 History gabapentin 300 mg capsule 900 mg PO TID 02/23/23 06/24/23 History venlafaxine 225 mg tablet,extended 225 mg PO DAILY 02/23/23 06/24/23 History release 24 hr acetaminophen 325 mg capsule 325 mg PO Q4H PRN 02/25/23 06/24/23 History amlodipine 10 mg tablet 10 mg PO DAILY 02/25/23 06/24/23 History aripiprazole 2 mg tablet (Abilify) 2 mg PO DAILY 02/25/23 06/24/23 History cholecalciferol (vitamin D3) 25 25 mcg PO DAILY 02/25/23 06/24/23 History mcg (1,000 unit) capsule cyclobenzaprine 10 mg tablet 10 mg PO TID PRN 02/25/23 06/24/23 History famotidine 10 mg tablet 10 mg PO DAILY 02/25/23 06/24/23 History gabapentin 300 mg capsule 900 mg PO TID 02/25/23 06/24/23 History lisinopril 10 mg tablet 10 mg PO DAILY 02/25/23 06/24/23 History omeprazole 20 mg capsule,delayed 20 mg PO DAILY 02/25/23 06/24/23 History release vitamin B complex 1 cap PO DAILY 02/25/23 06/24/23 History topiramate 50 mg tablet 100 mg PO BID 03/03/23 06/24/23 History tramadol 50 mg tablet 50 mg PO Q6H PRN 03/03/23 06/24/23 History atomoxetine 10 mg capsule 40 mg PO QAM 04/29/23 05/10/23 History (Strattera) Exam Const General: cooperative and healthy appearing Orientation: alert, awake and oriented x3 Resp Effort & Inspection: normal respiratory effort Auscultation: clear to auscultation bilaterally GI Inspection: normal to inspection and non-distended Palpation: soft, no hernias and tender (Midepigastrium) Results Labs 06/25/23 06:42 06/25/23 06:42 Labs: Laboratory Results - last 24 hr 06/24/23 06/24/23 14:23 16:07 WBC 12.59 H RBC 5.13 Hgb 14.3 Hct 44.4 MCV 87 MCH 27.9 MCHC 32.2 RDW 14.4 Plt Count 237 MPV 9.0 Immature Gran % 0.5 Neutrophils % 76.6 Lymphocytes % 16.7 Monocytes % 4.8 Eosinophils % 1.0 Basophils % 0.4 Nucleated RBC % 0.0 Absolute Neutrophils 9.64 H Absolute Lymphocytes 2.10 Absolute Monocytes 0.60 Absolute Eosinophils 0.13 Absolute Basophils 0.05 Sodium 143 Potassium 3.5 Chloride 107 Carbon Dioxide 28.4 Anion Gap 7.6 BUN 8 Creatinine 0.9 Est GFR (CKD-EPI 2020) 79.35 Glucose 97 Calcium 8.7 Magnesium 2.1 Total Bilirubin 0.3 AST 53 H ALT 39 Alkaline Phosphatase 91 Troponin I < 50 < 50 Total Protein 7.4 Albumin 3.4 Lipase > 375 H Last Vital Signs Temp 98.6 F 06/24/23 13:20 Pulse 73 06/24/23 16:34 Resp 16 06/24/23 16:34 BP 163/78 H 06/24/23 16:34 Pulse Ox 100 06/24/23 16:10 Time Spent Time spent with Patient: 40-54 minutes Time was spent: preparing to see the patient(eg.review tests), ordering medications,tests, procedures, referring, communicating with other health care transition manager, indepentently interpreting results and counseling the patient
[2023-06-24] MEDS: Lactated Ringers 1,000 ML 75 ML IV (19:07)
[2023-06-24] MEDS: Gabapentin 300 MG CAP 900 MG PO (19:41)
[2023-06-24] MEDS: Topiramate 50 MG TAB 100 MG PO (19:43)
[2023-06-24] MEDS: Metoprolol 50 MG TAB PO (19:43)
[2023-06-24] MEDS: Normal Saline Flush 10 ML SYR IVP (19:44)
--- NOTE | 2023-06-24 20:40 | RESPIRATORY ---
RT seen pt. for JOSE daignosis. Pt. states has HU machine called AVAP but has not brought it here in the hospital and refuses to use the one the hospital provides. Pt. also states a family member is going to bring it here if she is going to stay more nights. Pt. advised RT that she will be okay without it tonight. RT convinced pt. to let RT know if she changes her mind later. Pt is unsure of it's DME.
[2023-06-24 21:45] LABS: Troponin I < 50 ng/L (< or =60)
[2023-06-24 21:51] LABS: Triglyceride 71 mg/dL (<150)
[2023-06-25 01:09] VITALS: BP 134/88; PULSE 62; RESP 20; TEMP 36.7; O2SAT 96
[2023-06-25] MEDS: Lactated Ringers 1,000 ML 75 ML IV (06:47)
[2023-06-25 06:54] LABS: Abs Immature Grans 0.03 10^3/uL (0.0-0.06); Absolute Basophil Count 0.02 10^3/uL (0.0-0.2); Absolute Eosinophil Count 0.09 10^3/uL (0.0-0.7); Absolute Lymphocyte Count 1.78 10^3/uL (1.2-3.4); Absolute Monocyte Count 0.33 10^3/uL (0.1-0.8); Absolute Neutrophil Count 5.29 10^3/uL (1.2-6.7); Basophils % 0.3; Eosinophils % 1.2; HGB 13.7 g/dL (11.2-15.7); Immature Grans % 0.4; Lymphocytes % 23.6; MCH 28.1 pg (27.0-33.0); MCHC 32.6 % (32.0-36.0); MCV 86 fL (80-95); Monocytes % 4.4; Neutrophils % 70.1; Platelet Count 189 10^3/uL (130-400); RBC 4.87 10^6/uL (3.93-5.22); RDW 14.6 % (11.7-14.6); RDW-SD 45.8 fL; WBC 7.54 10^3/uL (4.4-10.8)
[2023-06-25 07:10] LABS: ALT 80 U/L (14-59); AST 51 U/L (15-37); Albumin 3.1 g/dL (3.4-5.0); Alkaline Phosphatase 100 U/L (46-116); Anion Gap 10.3 mmol/L (3-11); BUN 5 mg/dL (7-18); Bilirubin, Total 0.4 mg/dL (0.2-1.0); CO2 23.7 mmol/L (21.0-32.0); CREATININE 0.7 mg/dL (0.55-1.02); Calcium 8.6 mg/dL (8.5-10.1); Chloride 108 mmol/L (98-107); Estimated GFR 107.28 (mL/min/1.73m2); Glucose 93 mg/dL (74-106); Lipase 126 U/L (16-77); Potassium 3.3 mmol/L (3.5-5.1); Sodium 142 mmol/L (136-145); Total Protein 6.9 g/dL (6.4-8.2)
[2023-06-25 08:08] VITALS: BP 148/96; PULSE 66; RESP 16; TEMP 37; O2SAT 97
--- NOTE | 2023-06-25 08:23 | W.PM.PROGNOT ---
Date of Service Date of service: 06/25/23 Time of Service: 08:24 Assessment and Plan Assessment and plan (1) Acute pancreatitis: Status: Acute Assessment and plan: Pain is currently better controlled Continue NPO status Awaiting results from MRCP later today. Activity as tolerated, encouraged ambulation and sitting in a chair. (2) Biliary colic: Status: Acute Subjective Subjective Interval history since last seen: Arrived with the patient resting comfortably in bed. She reports that she is having discomfort in her left upper quadrant. She states that her nausea has subsided and she is feeling slightly better however continues to have discomfort. She denies having any nausea or vomiting, fevers chills or night sweats. Exam Const General: cooperative, healthy appearing and comfortable Orientation: alert and oriented x3 Resp Effort & Inspection: normal respiratory effort, no audible wheezes and no cough GI Inspection: normal to inspection Palpation: soft, no guarding and tender Objective Last Vital Signs Temp 37.0 C 06/25/23 08:08 Pulse 66 06/25/23 08:08 Resp 16 06/25/23 08:08 BP 148/96 H 06/25/23 08:08 Pulse Ox 97 06/25/23 08:08 Laboratory Results - last 24 hr 06/24/23 06/24/23 06/24/23 14:23 16:07 21:00 WBC 12.59 H RBC 5.13 Hgb 14.3 Hct 44.4 MCV 87 MCH 27.9 MCHC 32.2 RDW 14.4 Plt Count 237 MPV 9.0 Immature Gran % 0.5 Neutrophils % 76.6 Lymphocytes % 16.7 Monocytes % 4.8 Eosinophils % 1.0 Basophils % 0.4 Nucleated RBC % 0.0 Absolute Neutrophils 9.64 H Absolute Lymphocytes 2.10 Absolute Monocytes 0.60 Absolute Eosinophils 0.13 Absolute Basophils 0.05 Sodium 143 Potassium 3.5 Chloride 107 Carbon Dioxide 28.4 Anion Gap 7.6 BUN 8 Creatinine 0.9 Est GFR (CKD-EPI 2020) 79.35 Glucose 97 Calcium 8.7 Magnesium 2.1 Total Bilirubin 0.3 AST 53 H ALT 39 Alkaline Phosphatase 91 Troponin I < 50 < 50 Cancelled Total Protein 7.4 Albumin 3.4 Triglycerides Lipase > 375 H 06/24/23 06/25/23 21:22 06:42 WBC 7.54 RBC 4.87 Hgb 13.7 Hct 42.0 MCV 86 MCH 28.1 MCHC 32.6 RDW 14.6 Plt Count 189 MPV 9.0 Immature Gran % 0.4 Neutrophils % 70.1 Lymphocytes % 23.6 Monocytes % 4.4 Eosinophils % 1.2 Basophils % 0.3 Nucleated RBC % 0.0 Absolute Neutrophils 5.29 Absolute Lymphocytes 1.78 Absolute Monocytes 0.33 Absolute Eosinophils 0.09 Absolute Basophils 0.02 Sodium 142 Potassium 3.3 L Chloride 108 H Carbon Dioxide 23.7 Anion Gap 10.3 BUN 5 L Creatinine 0.7 Est GFR (CKD-EPI 2020) 107.28 Glucose 93 Calcium 8.6 Magnesium Total Bilirubin 0.4 AST 51 H ALT 80 H Alkaline Phosphatase 100 Troponin I < 50 Total Protein 6.9 Albumin 3.1 L Triglycerides 71 Lipase 126 H Time Spent with Patient Time Spent with Patient: <25 minutes Time was spent: preparing to see the patient(eg.review tests), obtaining and/or reviewing separately otained hiistory and counseling the patient
[2023-06-25] MEDS: HYDROmorphone 2 MG/ML SYR 1 MG IVP (08:42)
[2023-06-25] MEDS: Venlafaxine 75 MG CAPCR 225 MG PO (08:43)
[2023-06-25] MEDS: Gabapentin 300 MG CAP 900 MG PO ×3 (08:43→19:22)
[2023-06-25] MEDS: Famotidine 20 MG TAB 10 MG PO (08:43)
[2023-06-25] MEDS: Omeprazole 20 MG CAPCR PO (08:43)
[2023-06-25] MEDS: Metoprolol 50 MG TAB PO ×2 (08:44→19:22)
[2023-06-25] MEDS: amLODIPine 10 MG TAB PO (08:44)
[2023-06-25] MEDS: Lisinopril 10 MG TAB PO (08:44)
[2023-06-25] MEDS: Cholecalciferol (Vitamin D3) 1,000 UNIT TAB 1000 UNITS PO (08:44)
[2023-06-25] MEDS: Normal Saline Flush 10 ML SYR IVP ×3 (08:44→19:48)
[2023-06-25] MEDS: Topiramate 100 MG TAB PO ×2 (08:44→19:23)
--- NOTE | 2023-06-25 09:07 | PDOC.CMIN ---
Date of service: 06/25/23 Time of Service: 09:08 Care Management Initial Assmt Initial Assessment REASON FOR HOSPITALIZATION:: chest pain/pancreatitis PREVIOUS FUNCTIONAL STATUS/SOCIAL/FAMILY SUPPORTS:: Viktoriya lives alone in an apartment in [place], [place]. She is but lives apart from her . Viktoriya has 2 children. Her daughter lives in [place] with Viktoriya's and their other child lives in [place]. 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 Viktoriya shared that her goal is to attain her PhD in neuropsychology. She is independent at baseline and does not receive any community services. CURRENT FUNCTIONAL STATUS:: Viktoriya was sitting up in bed when CM met with her. She was pleasant in manner and agreeable to conversation. Viktoriya reported that she has gallstones and will be scheduled for a laparoscopic cholecystectomy next week. She is currently on a clear liquid diet. If she is able to tolerate it, her diet will be advanced and she may be able to discharge home tomorrow. ADVANCE DIRECTIVES:: none Has patient been provided with info about the portal/API?: Yes Did the patient sign up for the portal?: Yes CODE STATUS:: Full Code INSURANCE COVERAGE / FINANCIAL ISSUES:: Medicaid CURRENT HOME/COMMUNITY SERVICES/EQUIPMENT:: none PRIMARY CARE PHYSICIAN:: Parminder Rivera POTENTIAL DISCHARGE NEEDS:: follow up with community providers and plan of care PATIENT/FAMILY EDUCATION NEEDS:: Review of discharge instructions, activity, limitations, follow up plan, discuss [employer] TRANSPORTATION:: via private vehicle with family PLAN:: Viktoriya will be discharged home with no new services when medically cleared. She will likely be scheduled for a laparoscopic cholecystectomy soon. Viktoriya will follow up with community providers and plan of care and transport with family. CM will follow and continue to assess for discharge needs. PFSH All Active Problems Acute pancreatitis (Acute) Biliary colic (Acute) Chest pain (Acute) Abnormal perimenopausal bleeding (Acute) Instability of left shoulder joint (Acute) Tendinopathy of left biceps tendon (Acute) Chiari malformation type I (Acute) Hypertension (Chronic) GERD (gastroesophageal reflux disease) (Chronic) Obstructive sleep apnea (Chronic) Chronic migraine without aura (Acute) Anemia, iron deficiency (Acute) Anxiety and depression (Chronic) Degenerative disc disease, cervical (Acute) Degenerative disc disease, lumbar (Acute) Chronic pain syndrome (Chronic) Rajni-Danlos syndrome (Acute) Sessile serrated polyp of colon (Acute ~05/10/23) X1, 2 hyperplastic Radicular syndrome of right leg (Acute) Paresthesias (Acute) Idiopathic small fiber peripheral neuropathy (Acute) Dysphagia (Acute) Bilateral hip pain (Acute) Thoracic outlet syndrome (Acute) Chronic pain syndrome (Chronic) Hypertension (Chronic) Rajni-Danlos syndrome (Acute) Medical History Screen for colon cancer Essential hypertension Anxiety Degenerative disc disease, lumbar Degenerative disc disease, cervical Chronic low back pain without sciatica Incontinence in female Tobacco use Cervical radiculopathy Fatigue Pain, joint, ankle, left Chiari I malformation Major depression GERD (gastroesophageal reflux disease) Intractable chronic migraine without aura JOSE (obstructive sleep apnea) Surgical History Hx of colonoscopy (~04/2023) S/P hernia repair Family History Mother Hypertension Diabetes Heart disease Father Hyperlipidemia Social History Smoking/Tobacco Use Status: Current every day Tobacco Type: cigarettes Quit status: has quit before Smoking risk assessment performed?: Yes Alcohol Intake: former Drug use: Occasionally Substance use type: marijuana Details: marijuana: t-14 Household members: spouse Housing: apartment Number of Children: 2 current occupation: Does not work Current gender identity: female Do you feel safe at home: Yes Do you feel safe in your relationship?: Yes History History 4 Para 2 Hx # Term Pregnancies 2 Multiple births Hx # Pregnancies Ectopic pregnancies AB induced Hx Number of Living Children 2 AB spontaneous 2 SDOH(Care Management) Screening Will the Patient Participate in the Screening?: Yes Do you worry about having a steady place to live?: no In the past 12 months, have you had to go without electric, gas, oil or water in your home?: no Have you or anyone in your house had to go without enough food to eat?: no Has lack of transportation kept you from medical appointments or from doing things needed for daily living?: no Has anyone in your support network made you feel unsafe for any reason?: no
--- NOTE | 2023-06-25 15:09 | CHAPLAIN ---
I had a brief visit with Viktoriya. She was resting in bed. She said she's in touch with her family. I explained my role and offered support.
[2023-06-25 15:23] VITALS: BP 136/85; PULSE 63; RESP 17; TEMP 36.9; O2SAT 97
[2023-06-25] MEDS: traMADol 50 MG TAB PO (16:40)
--- NOTE | 2023-06-25 17:05 | DI.MRI_ITS ---
Exam(s) MR ABDOMEN WO EXAM: MR ABDOMEN WO CLINICAL HISTORY: gallstone pancreatitis TECHNIQUE: Multiplanar multisequence MRI of the Abdomen was performed. COMPARISON: CT CT CHEST PE CTA from 06/24/2023 FINDINGS: Liver: There are 2 simple hepatic cysts each measuring 8 mm. No follow-up is recommended. No suspic ious hepatic lesions are seen. Pancreas: Unremarkable. No peripancreatic inflammation or fluid collection is seen to suggest an absc ess or phlegmon. Gallbladder and Bile Ducts: Multiple small gallstones are present. There is no biliary ductal dilatat ion. No choledocholithiasis is seen. There is no gallbladder wall thickening or pericholecystic fluid . Adrenals: Unremarkable. Kidneys: There is a 1.7 cm simple cyst in the lower pole of the right kidney. No follow-up is recomme nded. Spleen: Unremarkable. Bowel: Unremarkable. Aorta: Unremarkable. Soft Tissues: Unremarkable. Bone: Unremarkable. Lymph Nodes: Unremarkable. Lungs: Trace bilateral pleural effusions. IMPRESSION: 1. Cholelithiasis. No biliary ductal dilatation or choledocholithiasis. 2. Unremarkable pancreas. No peripancreatic fluid collections or inflammation is seen. DATA REPOSITORY:
[2023-06-25] MEDS: ACETAMINOPHEN 1,000 MG/100 ML BTL 400 MG IVPB (19:23)
[2023-06-25] MEDS: Ondansetron 4 MG/2 ML VIAL IVP (19:48)
[2023-06-26 00:16] VITALS: BP 138/88; PULSE 64; RESP 20; TEMP 36.5; O2SAT 97
[2023-06-26 06:11] LABS: HCT 47.3 % (36.0-46.0); HGB 15.1 g/dL (11.2-15.7); MCH 27.8 pg (27.0-33.0); MCHC 31.9 % (32.0-36.0); MCV 87 fL (80-95); MPV 8.9 fL (8.0-11.0); Platelet Count 209 10^3/uL (130-400); RBC 5.43 10^6/uL (3.93-5.22); RDW 14.3 % (11.7-14.6); RDW-SD 45.6 fL; WBC 7.47 10^3/uL (4.4-10.8)
[2023-06-26 06:21] LABS: Lipase 37 U/L (16-77)
--- NOTE | 2023-06-26 06:24 | DSE_ITS ---
Date of service: 06/26/23 Time of Service: 06:25 DS: Diagnosis Discharge Diagnosis (1) Acute pancreatitis: Status: Acute Asessment and Plan: Most consistent with gallstone pancreatitis. Plan for cholecystectomy this week. Discharge Plan Disposition Patient Disposition: Home Condition: Good Discharge Details Reason For Visit: Pancreatitis Admit Date/Time: 06/24/23 17:05 Admit Provider: Shant Bertrand Attending Provider: Shant Bertrand Primary Care Provider: Parminder Rivera Hospital Course Hospital Course: Viktoriya is 47 years old. She came to the ED with acute onset of chest pain. PE and cardiac disease was ruled out and lipase was elevated. Right upper quadrant ultrasound showed multiple mobile gallstones. She was admitted with gallstone pancreatitis. She was kept NPO and symptoms rabildly improved. She underwent MRCP that showed no signs of choledocolithiasis. Diet was advanced and lipase normalized. She was discharged home with a planned cholecystectomy during the coming days. Home Meds and New Rx's Prescriptions: Continued atomoxetine [Strattera] 10 mg capsule 40 mg PO QAM gabapentin 300 mg capsule 900 mg PO TID venlafaxine 225 mg tablet extended release 24hr 225 mg PO DAILY aripiprazole [Abilify] 2 mg tablet 4 mg PO DAILY naloxone 4 mg/actuation spray,non-aerosol 4 mg intranasal Q2M PRN Rx Instructions: spray 1 dose into ONE nostril; alternate nostrils w each dose until help arrives Systane Complete 0.6 % drops 1 drp ophthalmic (eye) DAILY PRN loteprednol etabonate 0.5 % drops,gel 1 drp ophthalmic (eye) QID Rx Instructions: start 24 hours after surgery rizatriptan 10 mg tablet See Rx Instructions PO .COMPLEX Rx Instructions: take 1 tab at onset of headache; if no relief may repeat 1 tab after at least 2 hrs; max = 3 tabs/24 hr PO metoprolol tartrate 50 mg tablet 50 mg PO BID Adult 50 Plus Probiotic 4 billion cell capsule See Rx Instructions .ROUTE .COMPLEX PRN Rx Instructions: as needed amlodipine 10 mg tablet 10 mg PO DAILY diclofenac sodium 1 % gel 2 g topical QID Rx Instructions: apply to single elbow, wrist or hand; for hand includes palm/fingers/back of hand acetaminophen 325 mg tablet 325 mg PO ONCE PRN mupirocin 2 % ointment 1 applic topical BID ketoconazole 2 % cream 1 applic topical DAILY famotidine 10 mg tablet 10 mg PO DAILY omeprazole 20 mg capsule,delayed release(DR/EC) 20 mg PO DAILY lisinopril 10 mg tablet 10 mg PO DAILY gabapentin 300 mg capsule 900 mg PO TID aripiprazole [Abilify] 2 mg tablet 2 mg PO DAILY vitamin B complex Capsule 1 cap PO DAILY cyclobenzaprine 10 mg tablet 10 mg PO TID PRN amlodipine 10 mg tablet 10 mg PO DAILY cholecalciferol (vitamin D3) 25 mcg (1,000 unit) capsule 25 mcg PO DAILY acetaminophen 325 mg capsule 325 mg PO Q4H PRN tramadol 50 mg tablet 50 mg PO Q6H PRN topiramate 50 mg tablet 100 mg PO BID Discharge Instructions Instructions: Pancreatitis (DC), Gallstones (DC) Additional Instructions: Viktoriya I was very nice seeing you in the hospital, although I am so sorry that you had gallstone pancreatitis. Like we talked about, you should be feeling a little better each day, but it may take a little while for the pain to totally subside. You may find a little bit of relief by keeping the diet relatively simple in the coming days as the inflammation in the pancreas resolves. We will try to arrange cholecystectomy as soon as possible. It is important to remember, that technically, in the meantime it is possible to have another stone pass through. If you find that your symptoms recur, please let us know immediately, and we will adjust our plans accordingly. Activity:: Activity as Tolerated Equipment/Supplies:: No Equipment Needed Diet:: low fat DS: Summary Time Spent with Patient providing and/or coordinating discharge services: Less than 30 minutes Status at Discharge Functional status at discharge: independent ambulation Overall status at discharge: patient is progressing back to baseline Mental Status: mental status grossly normal Speech and Movement: speech and movement normal Mood: congruent mood Affect: normal affect Quality:SDOH Health Related Social Needs: No Data to Display Exam GI Other: Abdomen is soft, with a little bit of midepigastric tenderness to deep palpation. There is no guarding or rebound. Psych Mental Status: mental status grossly normal Speech and Movement: speech and movement normal Mood: congruent mood Affect: normal affect DS: Data Vitals/I&O Vitals and I&O: Vital Signs Temperature 97.7 F 06/26/23 00:16 Temperature Source Tympanic 06/26/23 00:16 Pulse 64 06/26/23 00:16 Pulse Rhythm Regular 06/26/23 01:12 Pulse 74 06/24/23 16:34 Respiratory Rate 20 06/26/23 00:16 Respiratory Effort Normal, Non-Labored 06/26/23 01:12 Respiratory Depth Normal 06/26/23 01:12 Respiratory Pattern Normal 06/26/23 01:12 Blood Pressure 138/88 06/26/23 00:16 Blood Pressure Mean 109 06/24/23 16:34 Blood Pressure Position Supine 06/24/23 13:20 Pulse Oximetry 97 06/26/23 00:16 Oxygen Delivery Method Room Air 06/26/23 00:16 Oxygen Flow Rate 0 06/26/23 00:16 Pain Level 5 06/25/23 16:40 Intake & Output 06/25/23 06/25/23 06/26/23 11:59 23:59 11:59 Intake Total 5 112. Balance Intake: IV 875 / 1516.25 641.25 / 1516.25 Oral 480 / 480 Other: Urine Color Yellow Yellow Urine Appearance Clear Clear Clear Urine Odor None Voiding Methods Toilet Toilet Data Completed and Pending Labs on day of discharge: Labs from last 24 hours 06/26/23 06/25/23 06:00 06:42 WBC 7.47 7.54 RBC 5.43 H 4.87 Hgb 15.1 13.7 Hct 47.3 H 42.0 MCV 87 86 MCH 27.8 28.1 MCHC 31.9 L 32.6 RDW 14.3 14.6 Plt Count 209 189 MPV 8.9 9.0 Immature Gran % 0.4 Neutrophils % 70.1 Lymphocytes % 23.6 Monocytes % 4.4 Eosinophils % 1.2 Basophils % 0.3 Nucleated RBC % 0.0 Absolute Neutrophils 5.29 Absolute Lymphocytes 1.78 Absolute Monocytes 0.33 Absolute Eosinophils 0.09 Absolute Basophils 0.02 Sodium 142 Potassium 3.3 L Chloride 108 H Carbon Dioxide 23.7 Anion Gap 10.3 BUN 5 L Creatinine 0.7 Est GFR (CKD-EPI 2020) 107.28 Glucose 93 Calcium 8.6 Total Bilirubin 0.4 AST 51 H ALT 80 H Alkaline Phosphatase 100 Total Protein 6.9 Albumin 3.1 L Lipase 37 126 H PFSH All Active Problems Acute pancreatitis (Acute) Biliary colic (Acute) Chest pain (Acute) Abnormal perimenopausal bleeding (Acute) Instability of left shoulder joint (Acute) Tendinopathy of left biceps tendon (Acute) Chiari malformation type I (Acute) Hypertension (Chronic) GERD (gastroesophageal reflux disease) (Chronic) Obstructive sleep apnea (Chronic) Chronic migraine without aura (Acute) Anemia, iron deficiency (Acute) Anxiety and depression (Chronic) Degenerative disc disease, cervical (Acute) Degenerative disc disease, lumbar (Acute) Chronic pain syndrome (Chronic) Rajni-Danlos syndrome (Acute) Sessile serrated polyp of colon (Acute ~05/10/23) X1, 2 hyperplastic Radicular syndrome of right leg (Acute) Paresthesias (Acute) Idiopathic small fiber peripheral neuropathy (Acute) Dysphagia (Acute) Bilateral hip pain (Acute) Thoracic outlet syndrome (Acute) Chronic pain syndrome (Chronic) Hypertension (Chronic) Rajni-Danlos syndrome (Acute) Medical History Screen for colon cancer Essential hypertension Anxiety Degenerative disc disease, lumbar Degenerative disc disease, cervical Chronic low back pain without sciatica Incontinence in female Tobacco use Cervical radiculopathy Fatigue Pain, joint, ankle, left Chiari I malformation Major depression GERD (gastroesophageal reflux disease) Intractable chronic migraine without aura JOSE (obstructive sleep apnea) Surgical History Hx of colonoscopy (~04/2023) S/P hernia repair Family History Mother Hypertension Diabetes Heart disease Father Hyperlipidemia Social History Smoking/Tobacco Use Status: Current every day Tobacco Type: cigarettes Quit status: has quit before Smoking risk assessment performed?: Yes Alcohol Intake: former Drug use: Occasionally Substance use type: marijuana Details: marijuana: t-14 Household members: spouse Housing: apartment Number of Children: 2 current occupation: Does not work Current gender identity: female Do you feel safe at home: Yes Do you feel safe in your relationship?: Yes History History 4 Para 2 Hx # Term Pregnancies 2 Multiple births Hx # Pregnancies Ectopic pregnancies AB induced Hx Number of Living Children 2 AB spontaneous 2 Time Spent with Patient Time Spent with Patient: <45 minutes Time was spent: preparing to see the patient(eg.review tests), referring, communicating with other health manager of care, counseling the patient and care coordination
--- NOTE | 2023-06-26 06:31 | W.PM.PROGNOT ---
Date of Service Date of service: 06/26/23 Time of Service: 06:32 Assessment and Plan Assessment and plan (1) Acute pancreatitis: Status: Acute Assessment and plan: Gallstone pancreatitis seems to be resolving, with complete normalization of her white blood cell count and lipase today. We talked a little bit of what to expect in the coming days. Hopefully, the pain will continue to improve. We talked about the importance of cholecystectomy to reduce the likelihood of recurrence. We will try to make plans for cholecystectomy this coming week. Subjective Subjective Interval history since last seen: Viktoriya did well last night, with only a little bit of high mid epigastric discomfort after eating. Her pain has been tolerable. Exam GI Other: Abdomen is soft, with normal bowel sounds. She is a little bit of tenderness with deep palpation in the mid epigastrium. She does not guard at all. Objective Last Vital Signs Temp 97.7 F 06/26/23 00:16 Pulse 64 06/26/23 00:16 Resp 20 06/26/23 00:16 BP 138/88 06/26/23 00:16 Pulse Ox 97 06/26/23 00:16 Laboratory Results - last 24 hr 06/25/23 06/26/23 06:42 06:00 WBC 7.54 7.47 RBC 4.87 5.43 H Hgb 13.7 15.1 Hct 42.0 47.3 H MCV 86 87 MCH 28.1 27.8 MCHC 32.6 31.9 L RDW 14.6 14.3 Plt Count 189 209 MPV 9.0 8.9 Immature Gran % 0.4 Neutrophils % 70.1 Lymphocytes % 23.6 Monocytes % 4.4 Eosinophils % 1.2 Basophils % 0.3 Nucleated RBC % 0.0 Absolute Neutrophils 5.29 Absolute Lymphocytes 1.78 Absolute Monocytes 0.33 Absolute Eosinophils 0.09 Absolute Basophils 0.02 Sodium 142 Potassium 3.3 L Chloride 108 H Carbon Dioxide 23.7 Anion Gap 10.3 BUN 5 L Creatinine 0.7 Est GFR (CKD-EPI 2020) 107.28 Glucose 93 Calcium 8.6 Total Bilirubin 0.4 AST 51 H ALT 80 H Alkaline Phosphatase 100 Total Protein 6.9 Albumin 3.1 L Lipase 126 H 37 Time Spent with Patient Time Spent with Patient: <25 minutes Time was spent: preparing to see the patient(eg.review tests), indepentently interpreting results and counseling the patient
[2023-06-26] MEDS: Famotidine 20 MG TAB 10 MG PO (07:42)
[2023-06-26] MEDS: traMADol 50 MG TAB PO (07:43)
[2023-06-26] MEDS: Topiramate 100 MG TAB PO (07:43)
[2023-06-26] MEDS: Venlafaxine 75 MG CAPCR 225 MG PO (07:43)
[2023-06-26] MEDS: Cholecalciferol (Vitamin D3) 1,000 UNIT TAB 1000 UNITS PO (07:43)
[2023-06-26] MEDS: amLODIPine 10 MG TAB PO (07:44)
[2023-06-26] MEDS: Gabapentin 300 MG CAP 900 MG PO (07:44)
[2023-06-26] MEDS: Omeprazole 20 MG CAPCR PO (07:44)
[2023-06-26] MEDS: Metoprolol 50 MG TAB PO (07:44)
[2023-06-26] MEDS: Lisinopril 10 MG TAB PO (07:44)
[2023-06-26] MEDS: Normal Saline Flush 10 ML SYR IVP (07:44)
[2023-06-26 08:01] VITALS: BP 142/91; PULSE 61; RESP 18; TEMP 36.9; O2SAT 99
--- NOTE | 2023-06-26 10:27 | PDOC.CMDIS ---
Date of service: 06/26/23 Time of Service: 10:27 LACE Index Scoring Tool Questions: Length of Stay (in days): 2 Was the patient admitted via the E.D.?: Yes E.D. Visits: 1 Answers: Total Score: 6 Risk of Readmission: Low Risk Care Management Discharge Plan Reason for Hospitalization: chest pain/pancreatitis Discharge Plan: Viktoriya returned home with no new services, and a plan to follow up with surgical services this week. Her spouse drove her home via private vehicle. She will follow up with her PCP and discharge plan of care. Patient/Family Education Needs: Review discharge instructions and limitations, discussion of self care needs including ask me three. SDOH Health Related Social Needs: No Data to Display
== END 2023-06-26 09:36 | disposition home or self-care (01) ==
LOC: ER 16:52 → MS 18:16
PROVIDERS: Admitting Provider Surgery; Emergency Provider Student in an Organized Health Care Education/Training Program; PCP Family Medicine; Visit Provider Surgery
DX: K85.10 Biliary acute pancreatitis without necrosis or infection (principal); K80.20 Calculus of gallbladder without cholecystitis without obstruction; G93.5 Compression of brain; G47.33 Obstructive sleep apnea (adult) (pediatric); K21.9 Gastro-esophageal reflux disease without esophagitis; F32.9 Major depressive disorder, single episode, unspecified; M54.50 Low back pain, unspecified; G89.29 Other chronic pain; I10 Essential (primary) hypertension; F41.9 Anxiety disorder, unspecified; M50.10 Cervical disc disorder with radiculopathy, unspecified cervical region; M51.36 Other intervertebral disc degeneration, lumbar region; F17.210 Nicotine dependence, cigarettes, uncomplicated; F12.90 Cannabis use, unspecified, uncomplicated
CPT/HCPCS: 36415; 71275; 80053; 83690; 85027; 93005; 99285; 74181; 83735; 84478; 84484; 85025; 93010; G0378; J0131; J1170; J2405; J3490

== ENCOUNTER 2023-07-02 06:42 | Day surgery (SDC) | payer MEDICAID, SELFPAY ==
--- NOTE | 2023-07-01 14:04 | PDOC.DSDIS_ITS ---
Date of service: 07/02/23 Time of Service: 09:44 Discharge Plan Disposition Patient Disposition: Home Condition: Good Discharge Details Reason For Visit: laparoscopic cholecystectomy Attending Provider: Shant Bertrand Primary Care Provider: Parminder Rivera Home Meds and New Rx's Prescriptions: New tramadol 100 mg tablet 100 mg PO BID PRNQty: 8 0RF Rx Instructions: Take 0.5-1 full tablet as needed every 12 hours if needed for severe pain. I recommend taking half of a tablet to start in order to see how it affects you. Do not drive while using this medication Continued atomoxetine [Strattera] 10 mg capsule 40 mg PO QAM gabapentin 300 mg capsule 900 mg PO TID venlafaxine 225 mg tablet extended release 24hr 225 mg PO DAILY aripiprazole [Abilify] 2 mg tablet 4 mg PO DAILY naloxone 4 mg/actuation spray,non-aerosol 4 mg intranasal Q2M PRN Rx Instructions: spray 1 dose into ONE nostril; alternate nostrils w each dose until help arrives Systane Complete 0.6 % drops 1 drp ophthalmic (eye) DAILY PRN loteprednol etabonate 0.5 % drops,gel 1 drp ophthalmic (eye) QID Rx Instructions: start 24 hours after surgery rizatriptan 10 mg tablet See Rx Instructions PO .COMPLEX Rx Instructions: take 1 tab at onset of headache; if no relief may repeat 1 tab after at least 2 hrs; max = 3 tabs/24 hr PO metoprolol tartrate 50 mg tablet 50 mg PO BID Adult 50 Plus Probiotic 4 billion cell capsule See Rx Instructions .ROUTE .COMPLEX PRN Rx Instructions: as needed amlodipine 10 mg tablet 10 mg PO DAILY diclofenac sodium 1 % gel 2 g topical QID Rx Instructions: apply to single elbow, wrist or hand; for hand includes palm/fingers/back of hand mupirocin 2 % ointment 1 applic topical BID ketoconazole 2 % cream 1 applic topical DAILY famotidine 10 mg tablet 10 mg PO DAILY omeprazole 20 mg capsule,delayed release(DR/EC) 20 mg PO DAILY lisinopril 10 mg tablet 10 mg PO DAILY vitamin B complex Capsule 1 cap PO DAILY cholecalciferol (vitamin D3) 25 mcg (1,000 unit) capsule 25 mcg PO DAILY acetaminophen 325 mg capsule 325 mg PO Q4H PRN tramadol 50 mg tablet 50 mg PO Q6H PRN topiramate 50 mg tablet 100 mg PO BID Discharge Instructions Instructions: Laparoscopic Cholecystectomy (GEN) Additional Instructions: Viktoriya, we are able to get your gallbladder out today without much difficulty. Everything went just as planned. Hopefully you will make a quick recovery, and your gallstones will never give you any trouble again. Expect to have a little bit of pain and bruising around the incision sites. That is very common. If you notice that the skin starts to turn bright red, or there is any drainage from the wound, please let me know. You can leave the bandages on until tomorrow, then remove them in the evening time, and wash the incisions all with warm soapy water. If they are dry, they do not need any specific dressings. However, you are welcome to put some Band-Aids on it that is more comfortable. Be very careful with your lifting over the next few days. Please keep it less than 5 to 10 pounds. Please let me know if you have any questions at all, if not I will see you in the office 1. Resume all of your regular medications. 2. Heating pads and ice packs are fine to use over the incisions, and that should help with some pain. 3. Okay to use tylenol and ibuprofen over the counter as needed. Use tramadol as needed for more severe pain. 4. Leave bandage in place for 24 hours, then remove. 5. Shower with warm soapy water. Pat dry. Use a bandaid if needed to protect your clothing. 6. No soaking or tub baths until I see you in the office. 7. No heavy lifting until I see you in the office. 8. Call the office (or go directly to the emergency room after hours) if you notice any of the following: Develop chills (warm to touch), or if you have a thermometer and your temperature is above 101 Difficulty breathing or difficultly swallowing Persistent vomiting Any bleeding ? exceeding one tablespoon 9. Call your physician if the site where your intravenous was started becomes red, swollen, painful, and warm to touch. Stand Alone Forms: Anesthesia Discharge InstMane [facility] ([facility]) Referrals: Shant Bertrand MD [ [facility] STAFF PHYSICIAN] - (10 to 14 days) Activity:: no heavy lifting Remove Dressings/Wound Care:: 24 hours Shower/Bathe:: 24 hours Diet:: As Tolerated DS: Diagnosis Discharge Diagnosis (1) Cholelithiases: Status: Acute Asessment and Plan: Status post laparoscopic cholecystectomy; follow-up in the office for postoperative visit
--- NOTE | 2023-07-01 14:04 | HPE_ITS ---
Assessment and Plan Assessment and plan (1) Cholelithiases: Status: Acute Assessment and plan: We reviewed the plan for a laparoscopic cholecystectomy today, risks and the benefits of the procedure, and the anticipated recovery. I think she has a grea t understanding of what were doing, and she was able to provide informed consent. History of Present Illness History of Present Illness Chief Complaint: gallstone pancreatitis Narrative: Debbie is 47 years old, and she was in the hospital last week with acute onset of chest and mid epigastric pain. She was found to have an elevated lipase, and gallstones all consistent with gallstone pancreatitis. She underwent an MRCP that demonstrated no evidence of choledocholithiasis. Lipase rapidly normalized, and her pain totally resolved. She is here for laparoscopic cholecystectomy to reduce likelihood of recurrent gallstone pancreatitis. PFSH All Active Problems Cholelithiases (Acute) Abnormal perimenopausal bleeding (Acute) Instability of left shoulder joint (Acute) Tendinopathy of left biceps tendon (Acute) Chiari malformation type I (Acute) Hypertension (Chronic) GERD (gastroesophageal reflux disease) (Chronic) Obstructive sleep apnea (Chronic) Chronic migraine without aura (Acute) Anemia, iron deficiency (Acute) Anxiety and depression (Chronic) Degenerative disc disease, cervical (Acute) Degenerative disc disease, lumbar (Acute) Chronic pain syndrome (Chronic) Rajni-Danlos syndrome (Acute) Sessile serrated polyp of colon (Acute ~05/10/23) X1, 2 hyperplastic Radicular syndrome of right leg (Acute) Paresthesias (Acute) Idiopathic small fiber peripheral neuropathy (Acute) Dysphagia (Acute) Bilateral hip pain (Acute) Thoracic outlet syndrome (Acute) Chronic pain syndrome (Chronic) Hypertension (Chronic) Rajni-Danlos syndrome (Acute) Medical History Screen for colon cancer Essential hypertension Anxiety Degenerative disc disease, lumbar Degenerative disc disease, cervical Chronic low back pain without sciatica Incontinence in female Tobacco use Cervical radiculopathy Fatigue Pain, joint, ankle, left Chiari I malformation Major depression GERD (gastroesophageal reflux disease) Intractable chronic migraine without aura JOSE (obstructive sleep apnea) Surgical History Hx of colonoscopy (~04/2023) S/P hernia repair Family History Mother Hypertension Diabetes Heart disease Father Hyperlipidemia Social History Smoking/Tobacco Use Status: Current every day Tobacco Type: cigarettes Quit status: has quit before Smoking risk assessment performed?: Yes Alcohol Intake: former Drug use: Occasionally Substance use type: marijuana Household members: spouse and other Details: from [place]. Share an apartment. Housing: apartment Number of Children: 2 Education Level: college Details: BA Journalism [employer]. 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 current occupation: Does not work Sexually active: No Current gender identity: female Do you feel safe at home: Yes Do you feel safe in your relationship?: Yes History History 4 Para 2 Hx # Term Pregnancies 2 Multiple births Hx # Pregnancies Ectopic pregnancies AB induced Hx Number of Living Children 2 AB spontaneous 2 Meds Allergies and Home Medications Allergies Allergy/AdvReac Type Severity Reaction Status Date / Time adhesive tape Allergy Severe Skin Rash Verified 07/02/23 07:01 corn Allergy Severe Anaphylaxis Verified 07/02/23 07:01 COVID-19 vacc, bv (Orig, Allergy Severe Swelling/Ed Unverified 07/02/23 07:01 Omicron BA.4/5) (Moderna) deangelo [From Moderna COVID Bival(6m up)(PF)] peanut Allergy Severe Anaphylaxis Verified 07/02/23 07:01 watermelon Allergy Severe Other (See Verified 07/02/23 07:01 Comment) wheat Allergy Severe Anaphylaxis Verified 07/02/23 07:01 rice Allergy Intermediate Skin Rash Unverified 07/02/23 07:01 Sulfa (Sulfonamide Allergy Mild vomiting Unverified 07/02/23 07:01 Antibiotics) latex Allergy Skin Rash Verified 07/02/23 07:01 Home Medications Medication Instructions Recorded Confirmed Type lactobacillus combination no.9 4 See Rx Instructions .Route 04/14/22 07/02/23 History billion cell capsule (Adult 50 .COMPLEX PRN Plus Probiotic) loteprednol etabonate 0.5 % eye 1 drp ophthalmic (eye) QID 04/14/22 07/02/23 History gel drops metoprolol tartrate 50 mg tablet 50 mg PO BID 04/14/22 07/02/23 History propylene glycol 0.6 % eye drops 1 drp ophthalmic (eye) DAILY PRN 04/14/22 07/02/23 History (Systane Complete) rizatriptan 10 mg tablet See Rx Instructions PO .COMPLEX 04/14/22 07/02/23 History amlodipine 10 mg tablet 10 mg PO DAILY 05/05/22 07/02/23 History diclofenac sodium 1 % topical gel 2 g topical QID 05/05/22 07/02/23 History ketoconazole 2 % topical cream 1 applic topical DAILY 05/05/22 07/02/23 History mupirocin 2 % topical ointment 1 applic topical BID 05/05/22 07/02/23 History naloxone 4 mg/actuation nasal spray 4 mg intranasal Q2M PRN 08/27/22 07/02/23 History aripiprazole 2 mg tablet (Abilify) 4 mg PO DAILY 02/23/23 07/02/23 History gabapentin 300 mg capsule 900 mg PO TID 02/23/23 07/02/23 History venlafaxine 225 mg tablet,extended 225 mg PO DAILY 02/23/23 07/02/23 History release 24 hr acetaminophen 325 mg capsule 325 mg PO Q4H PRN 02/25/23 07/02/23 History cholecalciferol (vitamin D3) 25 25 mcg PO DAILY 02/25/23 07/02/23 History mcg (1,000 unit) capsule famotidine 10 mg tablet 10 mg PO DAILY 02/25/23 07/02/23 History lisinopril 10 mg tablet 10 mg PO DAILY 02/25/23 07/02/23 History omeprazole 20 mg capsule,delayed 20 mg PO DAILY 02/25/23 07/02/23 History release vitamin B complex 1 cap PO DAILY 02/25/23 07/02/23 History topiramate 50 mg tablet 100 mg PO BID 03/03/23 07/02/23 History tramadol 50 mg tablet 50 mg PO Q6H PRN 03/03/23 07/02/23 History atomoxetine 10 mg capsule 40 mg PO QAM 04/29/23 07/02/23 History (Strattera) Exam Const General: cooperative, healthy appearing and not in acute distress Neck Neck: normal visual inspection, no lymphadenopathy and supple Resp Effort & Inspection: normal respiratory effort Auscultation: clear to auscultation bilaterally Cardio Jugular venous pressure: no JVD Rate: regular rate Rhythm: regular rhythm Heart Sounds: S1 normal and S2 normal GI Inspection: normal to inspection Palpation: soft, no guarding, no hernias and nontender Percussion: normal to percussion Auscultation: normal bowel sounds Neuro General: patient alert, patient awake and patient oriented x3 Psych Appearance: grossly normal
--- NOTE | 2023-07-01 14:05 | ROE_ITS ---
Date of service: 07/02/23 Time of Service: 09:49 Operative Note Operative Note DATE OF PROCEDURE: 07/02/23 PRE-OP DIAGNOSIS: gallstone pancreatitis Cholelithiasis PROCEDURE: laproscopic cholecystectomy SURGEON: Shant Bertrand GLASS FORMING ENGINEER: Flor Gooden ANESTHESIA TYPE: Local By Surgeon and General LMA/ETT Refer to Anesthesia Record ESTIMATED BLOOD LOSS: 25 PATHOLOGY: other COMPLICATIONS: None Patient was transported to: PACU Patient's condition: stable Indications: Debbie is a 47-year-old woman with cholelithiasis, and a recent episode of gallstone pancreatitis. Findings: Mild pericholecystic inflammation Procedure Description: After satisfactory induction of general anesthesia, I prepped and draped the abdomen in usual fashion. Next, I began with a periumbilical incision. I dissected down to the fascia and elevated it with Tu clamps. I incised it sharply. Next, I passed a 12 mm operating port in the umbilical site. I secured it to the fascia with 0 Vicryl stitches. I then insufflated the peritoneal cavity. Next I inserted a 5 mm 30 degree scope and examined the underlying viscera. There was no evidence of injury created upon entry. I then placed the patient in some reverse Trendelenburg and left side down positioning. Then, with the assistance of the laparoscope, I used local anesthetic to anesthetize the midepigastric and 2 right upper quadrant port sites. Under the vision of the laparoscope, I passed 3 more 5 mm ports. I then grasped the gallbladder fundus and elevated cephalad. There were some adhesions around the gallbladder infundibulum towards the cystic neck. I began by dissecting the gallbladder infundibulum. I worked in a lateral to medial fashion, with the assistance of indocyanine green visualization. Once I skeletonized the cystic duct and cystic artery, with a satisfactory critical view of safety, I doubly clipped and divided them. I then used electrocautery to dissect the gallbladder off the gallbladder fossa. During this dissection, we did get into the gallbl adder proper, and spill some gallstones. Spillage was minimal. I passed the gallbladder into an Endo Catch bag and removed it by way of the umbilical site. I examined the surgical field. It was hemostatic. I irrigated the field clean I then removed the 5 mm ports under the vision of the laparoscope. Finally, I removed the umbilical port site and closed the fascia with Vicryl stitches. Sites were irrigated, and the skin was closed with subcuticular stitches. Bandages were applied, patient was awakened from anesthesia, and transferred to the recovery unit.
[2023-07-02] VITALS (12 sets, daily range): BP systolic 140–169; BP diastolic 66–99; PULSE 56–75; RESP 12–22; TEMP 36.4–37; O2SAT 95–100; BMI 33.6
--- NOTE | 2023-07-02 07:01 | ANES.PREOP_ITS ---
General Info Date of Service Date Performed: 07/02/23 Height: 5 ft 7 in Weight: 97.522 kg Body Mass Index (BMI): 33.6 Surgical Procedure: Operation Date: 07/02/23 08:40 Proposed Procedure Side Surgeon p Cholecystectomy Laparoscopic Shant Bertrand MD Meds Allergies and Home Medications Allergies Allergy/AdvReac Type Severity Reaction Status Date / Time adhesive tape Allergy Severe Skin Rash Verified 07/02/23 07:01 corn Allergy Severe Anaphylaxis Verified 07/02/23 07:01 COVID-19 vacc, bv (Orig, Allergy Severe Swelling/Ed Unverified 07/02/23 07:01 Omicron BA.4/5) (Moderna) deangelo [From Moderna COVID Bival(6m up)(PF)] peanut Allergy Severe Anaphylaxis Verified 07/02/23 07:01 watermelon Allergy Severe Other (See Verified 07/02/23 07:01 Comment) wheat Allergy Severe Anaphylaxis Verified 07/02/23 07:01 rice Allergy Intermediate Skin Rash Unverified 07/02/23 07:01 Sulfa (Sulfonamide Allergy Mild vomiting Unverified 07/02/23 07:01 Antibiotics) latex Allergy Skin Rash Verified 07/02/23 07:01 Home Medication Medication Instructions Recorded lactobacillus combination no.9 4 See Rx Instructions .Route 04/14/22 billion cell capsule (Adult 50 .COMPLEX PRN Plus Probiotic) loteprednol etabonate 0.5 % eye 1 drp ophthalmic (eye) QID 04/14/22 gel drops metoprolol tartrate 50 mg tablet 50 mg PO BID 04/14/22 propylene glycol 0.6 % eye drops 1 drp ophthalmic (eye) DAILY PRN 04/14/22 (Systane Complete) rizatriptan 10 mg tablet See Rx Instructions PO .COMPLEX 04/14/22 amlodipine 10 mg tablet 10 mg PO DAILY 05/05/22 diclofenac sodium 1 % topical gel 2 g topical QID 05/05/22 ketoconazole 2 % topical cream 1 applic topical DAILY 05/05/22 mupirocin 2 % topical ointment 1 applic topical BID 05/05/22 naloxone 4 mg/actuation nasal spray 4 mg intranasal Q2M PRN 08/27/22 aripiprazole 2 mg tablet (Abilify) 4 mg PO DAILY 02/23/23 gabapentin 300 mg capsule 900 mg PO TID 02/23/23 venlafaxine 225 mg tablet,extended 225 mg PO DAILY 02/23/23 release 24 hr acetaminophen 325 mg capsule 325 mg PO Q4H PRN 02/25/23 cholecalciferol (vitamin D3) 25 25 mcg PO DAILY 02/25/23 mcg (1,000 unit) capsule famotidine 10 mg tablet 10 mg PO DAILY 02/25/23 lisinopril 10 mg tablet 10 mg PO DAILY 02/25/23 omeprazole 20 mg capsule,delayed 20 mg PO DAILY 02/25/23 release vitamin B complex 1 cap PO DAILY 02/25/23 topiramate 50 mg tablet 100 mg PO BID 03/03/23 tramadol 50 mg tablet 50 mg PO Q6H PRN 03/03/23 atomoxetine 10 mg capsule 40 mg PO QAM 04/29/23 (Heike) Current Visit Medications: Current Medications Generic Name Dose Route Start Last Admin Trade Name Freq PRN Reason Stop Dose Admin Acetaminophen 1,000 mg 07/02/23 06:00 Acetaminophen 500 Mg Tab PO 07/02/23 23:59 PREOP BELINDA Celecoxib 200 mg 07/02/23 06:00 Celecoxib 200 Mg Cap PO 07/02/23 23:59 PREOP BELINDA Gabapentin 600 mg 07/02/23 06:00 Gabapentin 300 Mg Cap PO 07/02/23 23:59 PREOP BELINDA Ringer's Solution 1,000 mls @ 80 mls/hr 07/02/23 06:00 IV 07/02/23 23:59 INFUSION BELINDA Cefazolin Sodium/Dextrose 2 gm in 50 mls @ 100 mls/hr 07/02/23 06:00 Ancef Duplex IVPB 07/02/23 23:59 PREOP BELINDA IV Miscellaneous Supplies 1 each 07/02/23 06:00 Iv Access IV 07/02/23 23:59 DIRECTED BELINDA Indocyanine Green 0 mg 07/02/23 06:00 Indocyanine Green 25 Mg Vial IVP 07/02/23 16:00 PREOP BELINDA Sodium Chloride 0 ml 07/02/23 06:00 Normal Saline Flush 10 Ml Syr IV 07/02/23 23:59 PRN PRN Sodium Chloride 0 ml 07/02/23 06:00 Normal Saline 10 Ml Vial IJ 07/02/23 23:59 DIRECTED PRN Sterile Water 0 ml 07/02/23 06:00 Water,Injection,Sterile 10 Ml Vial IJ 07/02/23 23:59 DIRECTED PRN PFSH Active Problems Active Problems: Problem Status Onset Code Cholelithiases K80.20 Abnormal perimenopausal bleeding N92.4 Instability of left shoulder joint M25.312 Tendinopathy of left biceps tendon M67.922 Chiari malformation type I G93.5 Hypertension I10 GERD (gastroesophageal reflux disease) K21.9 Obstructive sleep apnea G47.33 Chronic migraine without aura G43.709 Anemia, iron deficiency D50.9 Anxiety and depression F41.9, F32.A Degenerative disc disease, cervical M50.30 Degenerative disc disease, lumbar M51.36 Chronic pain syndrome G89.4 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 Sessile serrated polyp of colon ~05/10/23 D12.6 Radicular syndrome of right leg M54.10 Paresthesias R20.2 Idiopathic small fiber peripheral neuropathy G60.9 Dysphagia R13.10 Bilateral hip pain M25.551, M25.552 Thoracic outlet syndrome G54.0 Chronic pain syndrome G89.4 Hypertension I10 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 Surgical History Surgical History Hx of colonoscopy (~04/2023) S/P hernia repair Tobacco Smoking/Tobacco Use Status: Current every day Tobacco Type: cigarettes Alcohol Alcohol Intake: former Substance Use Substance use: Occasionally Substance use type: marijuana Prental History History 4 Para 2 Hx # Term Pregnancies 2 Multiple births Hx # Pregnancies Ectopic pregnancies AB induced Hx Number of Living Children 2 AB spontaneous 2 Vital Signs and Lab Results Lab Results Blood Type / Crossmatch: No Data to Display Complete Blood Count: White Blood Count 7.47 10^3/uL (4.4-10.8) 02/03/24 06:00 Red Blood Count 5.43 10^6/uL (3.93-5.22) H 06/26/23 06:00 Hemoglobin 15.1 g/dL (11.2-15.7) 06/26/23 06:00 Hematocrit 47.3 % (36.0-46.0) H 06/26/23 06:00 Platelet Count 209 10^3/uL (130-400) 06/26/23 06:00 Complete Metabolic Panel: Sodium 142 mmol/L (136-145) 06/25/23 06:42 Potassium 3.3 mmol/L (3.5-5.1) L 06/25/23 06:42 Chloride 108 mmol/L (98-107) H 06/25/23 06:42 Carbon Dioxide 23.7 mmol/L (21.0-32.0) 06/25/23 06:42 BUN 5 mg/dL (7-18) L 06/25/23 06:42 Creatinine 0.7 mg/dL (0.55-1.02) 06/25/23 06:42 Est GFR (CKD-EPI 2020) 107.28 (mL/min/1.73m2) 06/25/23 06:42 Magnesium 2.1 mg/dL (1.8-2.4) 06/24/23 14:23 Calcium 8.6 mg/dL (8.5-10.1) 06/25/23 06:42 Albumin 3.1 g/dL (3.4-5.0) L 06/25/23 06:42 Glucose 93 mg/dL (74-106) 06/25/23 06:42 Liver Function Panel: Alanine Aminotransferase (ALT/SGPT) 80 U/L (14-59) H 06/25/23 0 6:42 Aspartate Amino Transf (AST/SGOT) 51 U/L (15-37) H 06/25/23 06: 42 Coagulation Panel: No Data to Display Cardiac Panel: Troponin I < 50 ng/L (< or =60) 06/24/23 Arterial Blood Gas: No Data to Display Venous Blood Gas: No Data to Display Pancreas Panel: Lipase 37 U/L (16-77) 06/26/23 06:00 Thyroid Panel: No Data to Display Infectious Disease: No Data to Display Blood Cultures: No Data to Display Toxicology Panel: No Data to Display Panel: No Data to Display Imaging and Studies Imaging and Studies Study information below may be from another EMR and interpreted by another pr patty. Please see original notes in EMR for more complete details. EKG Summary: 08/13: sinus. EKG PATIENT NAME: Viktoriya Van UNIT #: [id number] ORDERING PROVIDER: Dipak Espinoza M.D. PRIMARY CARE PROVIDER: RITO LOUIE MD DATE/TIME OF SERVICE: 06/24/23 1319 : 1975 PERFORMING LOCATION: [place] APPROVED REPORT Exam: Resting ECG Reason for Exam: chest pain Patient Location: E HR:80 bpm ECG Measurements Heart Rate 80 AXIS IL 162 P 29 QRSd 109 QRS -16 QT 415 T27 QTc 479 Conclusion Sinus rhythm...normal P axis, V-rate 60- 99 Low voltage, precordial leads...precordial leads <1.0mV <Electronically signed by DIPAK ESPINOZA MD in [place]> E-Sign Date: 06/24/23 E-Sign Time: 1441 ADDENDUM APPROVED REPORT Exam: Resting ECG Reason for Exam: chest pain Patient Location: E HR:80 bpm ECG Measurements Heart Rate 80 AXIS [place] 162 P 29 QRSd 109 QRS -16 QT 415 T27 QTc 479 Conclusion Sinus rhythm...normal P axis, V-rate 60- 99 Low voltage, precordial leads...precordial leads <1.0mV I have reviewed and I agree with the emergency room physician's ECG interpretation. Electronically signed by: <Electronically signed by Palomo Pete M.D. in [place]> 06/25/23 0825 Cosigned by: Stress Test Summary: 01/12: 7 mets, no ischemia noted. STRESS TEST PATIENT NAME: Marcela Van UNIT #: [id number] ORDERING PROVIDER: Ellyn Mishra NP PRIMARY CARE PROVIDER: UNKNOWN,UNKNOWN DATE/TIME OF SERVICE: 01/06/22 ADMITTING PROVIDER: SAMARIA JERONIMO MD : 1975 APPROVED REPORT Exam: Exercise Treadmill Patient Location: Out-Patient Room/Bed: Ordering Provider:ELLYN MISHRA, Contact Number: [phone] BMI: 38.68 Baseline Rhythm: Sinus Rhythm Comment: Resting ST abnormality lead III Indications: Angina Medical History Medical History: Hypertension, obesity, mild asthma, current tobacco use, chest pain Cardiac Medications: Metoprolol succinate, amlodipine, lisinopril, gabapentin, meloxicam, venlafaxine Allergies: Sulfa antibiotics Cardiac Risk Factors: Hypertension, obesity, asthma, smoker (current), family hx Previous Cardiac Procedures: None Pretest Chest Pain Characteristics: None Exercise History: Sedentary Physical Disabilities: None Lung Sounds: Clear to auscultation Heart Sounds: Regular Stress Test Details Test: Exercise stress testing was performed using a Antonio protocol. Rest Stress HR Resting HR Supine: 75 bpmMax Heart Rate (APMHR): 174 bpm Resting HR Standin bpmTarget HR (85% APMHR): 147 bpm Max HR Achieved: 140 bpm % of APMHR: 80 Recovery HR: 79 bpm HR response to stress: Normal HR response to stress Comment: Nondiagnostic- THR not achieved. Metoprolol succinate last dose was yesterday PM. BP Resting BP Supine: 124/88 mmHg Resting BP Standin/90 mmHg Max BP: 176/82 mmHg Recovery BP: 114/78 mmHg BP response to stress: Normal blood pressure response to stress. ECG Resting ECG: Sinus Rhythm Ectopy: None Comment: Resting ST abnormality lead III Stress ECG: Sinus Tachycardia ST Change: Nondiagnostic low heart rate, No significant ST segment changes noted Arrhythmia: None Recovery ECG: Sinus Rhythm Recovery ST Change: Nondiagnostic low heart rate, No significant ST segment changes noted Recovery Arrhythmia: None Clinical Reason for Termination: Dyspnea Stress Symptoms: General Fatigue, Dyspnea Exercise duration: 5 min01 sec Highest Stage Reached: Stage 2: 2.5 mph at 12% grade. Exercise capacity: 7.05 METs Angina Score: None Britton Treadmill Score: 4.8 Rate Pressure Product: 40842 Stress ECG Conclusion 1. Resting electrocardiogram was within normal limits 2. Patient exercised on the Antonio protocol completed a workload of 7.05 METS, stopping due to fatigue and dyspnea. No chest pain was described 3. Normal hemodynamic response to exercise. Peak heart rate achieved was 80% of predicted for age 4. At that level of heart rate and workload, there was no electrocardiographic evidence of myocardial ischemia 5. There were no dysrhythmias Britton Treadmill Score is 4.8 which is Moderate risk. Stress Test Summary STAGETime (mins)Speed (mph)Grade (%)[id number]/88 [id number]/9098% [id number]/8296%4.5 [id number]%Severe SOB7 1 min [id number]/8298%Moderate SOB 3 min [id number]/8098%Mild SOB 6 min [id number]/7898%SOB resolved Pt reported sudden severe SOB during second stage of Antonio protocol and requested termination of test. SOB resolved by minute 4 of recovery. Dictated by: SAMARIA JERONIMO MD Dictated:: 01/06/22 0947 <Electronically signed by Samaria Jeronimo M.D. in [place]> 01/06/22 1009 Transcribed Date: Transcribed Time: By: ANNA MARIE This is privileged, confidential information, intended only for the provider named. Any use or distribution by any person other than this provider is strictly prohibited. If you receive this report in error, please notify us immediately at 80 Other Study Summary:: c spine MRI, MRI brain, L spine MRI, abd MRI reviewed and results in charts Anesthesia Assessment and Plan Anesthesia History Personal History: No History of Anesthesia Complications Family History: No Family History of Anesthesia Complications and Other Exercise Tolerance Exercise Tolerance: Metabolic Equivalents>4 Pertinent Negatives Pertinent Negatives: No Major Cardiovascular Symptoms or Complaints, No Major Pulmonary Symptoms or Complaints and No History of CVA/TIA Cardiac & Pulmonary Exam Cardiac Exam: Normal S1/S2 Heart Sounds Pulmonary Exam: Clear Bilateral Breath Sounds Implantable Cardiac Device Does patient have a Pacemaker or an ICD?: No Airway Exam Known Difficult Airway: No Mallampati Class: 3 Mouth Opening: Narrow (< 3cm) Thyromental Distance: Greater than 3 cm Neck Range of Motion: Known Cervical Instability or radiculopathy Neck Circumference: Normal Teeth Condition: Normal Dentition ASA Classification ASA Score: ASA 2 Emergency Case?: No NPO Status NPO Status: NPO Clears >2 hours, Solids >8 hours Status Status: Negative HCG Anesthesia Plan Resuscitation Status: Full Code Anesthesia Technique: General Anesthesia Airway Planned: Endotracheal Tube Monitors Used: Standard Monitors Preoperative Comments:: pt reports medication controlled reflux with no s/s at time of assessment
[2023-07-02] MEDS: Acetaminophen 500 MG TAB 1000 MG PO (07:28)
[2023-07-02] MEDS: Celecoxib 200 MG CAP PO (07:28)
[2023-07-02] MEDS: Lactated Ringers 1,000 ML 80 ML IV (07:30)
[2023-07-02] MEDS: Indocyanine green 25 MG VIAL IVP (07:36)
[2023-07-02] MEDS: ceFAZolin 2 GM/50 ML BAG IVPB (08:33)
[2023-07-02] MEDS: Bupivacaine 0.25% Pres-Free 30 ML VIAL (09:04)
--- NOTE | 2023-07-02 09:39 | GB_PTH ---
PATIENT: Viktoriya Van LOC: [facility] U#:[id number] AGE/SX: 47/F ROOM: RE07/02/[address]: Shant Bertrand MD : 1975 BED: DIS: 07/02/2023 SPEC #: [id number] RECD: 07/02/23 12:39 STATUS: CAROLYN REQ #: [id number] INESSA: 07/02/23 09:[address]: Shant Bertrand DEPT: Surgical Specimen RECD BY: July Vega ENTERED: 07/02/23 12:39 SP TYPE: GB OTHR DR: Parminder Rivera Tissues: 1 - GALLBLADDER Procedures: GROSS AND MICRO LEVEL 3 Comments: [id number]
--- NOTE | 2023-07-02 10:22 | W.ANESPOSTOP ---
Postoperative Evaluation Date, Time and Location Date Performed: 07/02/23 Time Performed: 10:55 Patient Location: PACU Vital Signs Most Recent Imported Vital Signs: Most Recent Vital Signs Temp Pulse Resp BP Pulse Ox 36.4 C L 64 16 152/74 H 97 07/02/23 10:55 07/02/23 10:55 07/02/23 10:55 07/02/23 10:55 07/02/23 10:55 Pain Score Most Recent Pain Score: Most Recent Pain Score Temp Pulse Resp BP Pulse Ox 36.4 C L 64 16 152/74 H 97 07/02/23 10:55 07/02/23 10:55 07/02/23 10:55 07/02/23 10:55 07/02/23 10:55 Pain Level 0 07/02/23 10:10 Assessment Mental Status: Awake (Alert & Oriented to Patient Baseline) Airway and Respiratory Function: Patent airway with normal (patient baseline) respiratory exam Cardiovascular Function: Hemodynamically Stable Hydration Status: Adequately Hydrated Nausea & Vomiting: No Nausea or Vomiting Pain: Pain is tolerable per patient (pain 7/10 and improving per pt ) Peripheral Nerve Block: Patient did not receive a nerve block
[2023-07-02] MEDS: fentaNYL 100 MCG/2 ML VIAL IVP ×2 (10:23→10:37)
[2023-07-02] MEDS: HYDROmorphone 2 MG/ML SYR IVP (11:02)
[2023-07-02] MEDS: Normal Saline 10 ML VIAL IJ (11:04)
[2023-07-02] MEDS: traMADol 50 MG TAB 100 MG PO (12:11)
--- NOTE | 2023-07-06 14:09 | PDOC.ANES ---
Date of service: 07/06/23 Time of Service: 14:09 Anesthesia Note Report Anesthesia Note: READING EFFICIENCY COURSE DIRECTOR called patient today for usual phone followup and brought concern that patient tongue is numb on right side. I spoke to patient just now. She is able to stick her tongue straight out of her mouth when looking in mirror. She states in recovery she noted both sides of her tongue were numb but did not mention this to anyone. The left side returned to normal within the hour. The right side of her tongue continues to feel numb, causing a minor lisp. Tip of tongue is completely numb and returns to normal sensation the more posterior to the tip, specifically 1 or so. She can not taste in this area but does note that she tastes sweet from apple juice on her right lateral tongue. I advised this is possibly from the endotracheal tube, despite short duration of case. I advised this should improve over the next month, likely lingual nerve involvement. If it does not, then call us back or see ENT physician for evaluation. She understands this plan and will call back if not resolved. I spoke to our ENT Dr. Moura who advised this plan was reasonable with no immediate action needed.
== END 2023-07-02 13:30 | disposition home or self-care (01) ==
LOC: SUR 06:42
PROVIDERS: PCP Family Medicine; Visit Provider Surgery
PROC: 0FT44ZZ Resection of Gallbladder, Percutaneous Endoscopic Approach (ICD-10-PCS; CPT 47562; principal; 2023-07-02 08:30)
DX: K80.20 Calculus of gallbladder without cholecystitis without obstruction (principal); I10 Essential (primary) hypertension; F17.210 Nicotine dependence, cigarettes, uncomplicated; G89.4 Chronic pain syndrome
CPT/HCPCS: 47562; 81025; 88304; J0665; J0690; J1100; J1170; J1805; J1885; J2001; J2405; J2704; J3010

== ENCOUNTER 2023-10-04 09:56 | Emergency (ER) | payer MEDICAID, SELFPAY ==
[2023-10-04 10:10] VITALS: BP 156/109; PULSE 70; RESP 18; TEMP 37; O2SAT 98
--- NOTE | 2023-10-04 10:15 | DI.RAD_ITS ---
Exam(s) XR KNEE LT 3V AP,LAT,SHERITA EXAM: XR KNEE LT 3V AP,LAT,SHERITA CLINICAL HISTORY: knee pain. TECHNIQUE: 2D digital imaging was performed of the left knee. Three images were obtained. AP, late ral and PA tunnel views were obtained. COMPARISON: CR,XR XR CHEST 2V PA LATERAL from 08/25/2022 FINDINGS: BONES: No acute fracture is present. No bony destructive lesion is seen. JOINTS: The knee is normally aligned. No joint effusion is seen. No loose body. SOFT TISSUE: Normal. IMPRESSION: Normal radiographs of the left knee. DATA REPOSITORY: RADIATION DOSE DELIVERED:
--- NOTE | 2023-10-04 14:30 | ED.GENADUL_ITS ---
Discharge Plan Disposition Patient Disposition: Home Discharge Details Clinical Impression: Rajni-Danlos syndrome, Left knee pain Primary Care Provider: Parminder Rivera ED Provider: Dorothea Molina Home Meds and New Rx's Prescriptions: No Action atomoxetine [Strattera] 10 mg capsule 40 mg PO QAM gabapentin 300 mg capsule 900 mg PO TID venlafaxine 225 mg tablet extended release 24hr 225 mg PO DAILY aripiprazole [Abilify] 2 mg tablet 4 mg PO DAILY naloxone 4 mg/actuation spray,non-aerosol 4 mg intranasal Q2M PRN Rx Instructions: spray 1 dose into ONE nostril; alternate nostrils w each dose until help arri ves Mirena 21 mcg/24 hours (8 yrs) 52 mg intrauterine device 1 device intrauterine ONCE Qty: 1 0RF Rx Instructions: as a single dose Systane Complete 0.6 % drops 1 drp ophthalmic (eye) DAILY PRN loteprednol etabonate 0.5 % drops,gel 1 drp ophthalmic (eye) QID Rx Instructions: start 24 hours after surgery rizatriptan 10 mg tablet See Rx Instructions PO .COMPLEX Rx Instructions: take 1 tab at onset of headache; if no relief may repeat 1 tab after at least 2 hrs; max = 3 tabs/24 hr PO metoprolol tartrate 50 mg tablet 50 mg PO BID Adult 50 Plus Probiotic 4 billion cell capsule See Rx Instructions .ROUTE .COMPLEX PRN Rx Instructions: as needed amlodipine 10 mg tablet 10 mg PO DAILY diclofenac sodium 1 % gel 2 g topical QID Rx Instructions: apply to single elbow, wrist or hand; for hand includes palm/fingers/back of hand mupirocin 2 % ointment 1 applic topical BID ketoconazole 2 % cream 1 applic topical DAILY famotidine 10 mg tablet 10 mg PO DAILY omeprazole 20 mg capsule,delayed release(DR/EC) 20 mg PO DAILY lisinopril 10 mg tablet 10 mg PO DAILY vitamin B complex Capsule 1 cap PO DAILY cholecalciferol (vitamin D3) 25 mcg (1,000 unit) capsule 25 mcg PO DAILY acetaminophen 325 mg capsule 325 mg PO Q4H PRN tramadol 50 mg tablet 50 mg PO Q6H PRN topiramate 50 mg tablet 100 mg PO BID Discharge Instructions Instructions: Knee Pain (ED) Additional Instructions: YOU WILL BE CONTACTED FOR ORTHO APPOINTMENT CALL TO SCHEDULE YOUR MRI PRIOR TO SEEING ORTHO WEAR BRACE FOR COMFORT, USE CRUTCHES NEEDED TO HELP WITH WALKING Referrals: Jeevan Arguelles MD [ [facility] STAFF PHYSICIAN] - [facility] General Date/Time Provider Initiated Documentation: 10/04/23 10:24 . Limitations to Documentation: no limitations . Information obtained by: patient . HPI Narrative: 47-year-old female with past medical history of Rajni-Danlos, hypertension presents for evaluation of acute right knee pain. The patient reports that she woke up with knee pain. She denies any known trauma. She states that she often has hyperextension of her knee secondary to her Rajni-Danlos. She reports pain with walking and feeling like the knee is unstable. Worse with bending the knee. She denies any numbness or tingling or swelling. Related Data Home Medications Medication Instructions Recorded Confirmed lactobacillus combination no.9 4 See Rx Instructions .Route 04/14/22 10/04/23 billion cell capsule (Adult 50 .COMPLEX PRN Plus Probiotic) loteprednol etabonate 0.5 % eye 1 drp ophthalmic (eye) QID 04/14/22 10/04/23 gel drops metoprolol tartrate 50 mg tablet 50 mg PO BID 04/14/22 10/04/23 propylene glycol 0.6 % eye drops 1 drp ophthalmic (eye) DAILY PRN 04/14/22 10/04/23 (Systane Complete) rizatriptan 10 mg tablet See Rx Instructions PO .COMPLEX 04/14/22 10/04/23 amlodipine 10 mg tablet 10 mg PO DAILY 05/05/22 10/04/23 diclofenac sodium 1 % topical gel 2 g topical QID 05/05/22 10/04/23 ketoconazole 2 % topical cream 1 applic topical DAILY 05/05/22 10/04/23 mupirocin 2 % topical ointment 1 applic topical BID 05/05/22 10/04/23 naloxone 4 mg/actuation nasal spray 4 mg intranasal Q2M PRN 08/27/22 10/04/23 aripiprazole 2 mg tablet (Abilify) 4 mg PO DAILY 02/23/23 10/04/23 gabapentin 300 mg capsule 900 mg PO TID 02/23/23 10/04/23 venlafaxine 225 mg tablet,extended 225 mg PO DAILY 02/23/23 10/04/23 release 24 hr acetaminophen 325 mg capsule 325 mg PO Q4H PRN 02/25/23 10/04/23 cholecalciferol (vitamin D3) 25 25 mcg PO DAILY 02/25/23 10/04/23 mcg (1,000 unit) capsule famotidine 10 mg tablet 10 mg PO DAILY 02/25/23 10/04/23 lisinopril 10 mg tablet 10 mg PO DAILY 02/25/23 10/04/23 omeprazole 20 mg capsule,delayed 20 mg PO DAILY 02/25/23 10/04/23 release vitamin B complex 1 cap PO DAILY 02/25/23 10/04/23 topiramate 50 mg tablet 100 mg PO BID 03/03/23 10/04/23 tramadol 50 mg tablet 50 mg PO Q6H PRN 03/03/23 10/04/23 atomoxetine 10 mg capsule 40 mg PO QAM 04/29/23 10/04/23 (Strattera) levonorgestrel 21 mcg/24 hr (up to 1 device intrauterine ONCE #1 ea 07/27/23 10/04/23 8 years) 52 mg intrauterine device (Mirena) Previous Rx's Medication Instructions Recorded levonorgestrel 21 mcg/24 hr (up to 1 device intrauterine ONCE #1 ea 07/27/23 8 years) 52 mg intrauterine device (Mirena) Allergies Allergy/AdvReac Type Severity Reaction Status Date / Time adhesive tape Allergy Severe Skin Rash Verified 10/04/23 10:12 corn Allergy Severe Anaphylaxis Verified 10/04/23 10:12 COVID-19 vacc, bv (Orig, Allergy Severe Swelling/Ed Unverified 10/04/23 10:12 Omicron BA.4/5) (Moderna) deangelo [From Moderna COVID Bival(6m up)(PF)] peanut Allergy Severe Anaphylaxis Verified 10/04/23 10:12 watermelon Allergy Severe Other (See Verified 10/04/23 10:12 Comment) wheat Allergy Severe Anaphylaxis Verified 10/04/23 10:12 rice Allergy Intermediate Skin Rash Unverified 10/04/23 10:12 Sulfa (Sulfonamide Allergy Mild vomiting Unverified 10/04/23 10:12 Antibiotics) latex Allergy Skin Rash Verified 10/04/23 10:12 bandaids Allergy Severe severe Uncoded 10/04/23 10:12 skin rash General Stated Complaint: Orthopedic DELL: 4 Exam Narrative Exam Narrative: Review of Systems: All systems reviewed & are unremarkable except as noted in HPI and below Well-developed, no acute distress NCAT PERRL, normal conjunctiva RRR Unlabored respiratory effort Nondistended abdomen Extremities w/o deformity, no cyanosis, no edema No obvious effusion deformity or instability of the knee Able to straight leg lift the leg off the bed No rashes or lesions. no focal neurologic deficits Appropriate mood and affect Course Vital Signs Vital signs: Vital Signs Temperature 37.0 C 10/04/23 10:10 Pulse 70 10/04/23 10:10 Respiratory Rate 18 10/04/23 10:10 Blood Pressure 156/109 H 10/04/23 10:10 Pulse Oximetry 98 10/04/23 10:10 Temperature 37.0 C 10/04/23 10:10 Temperature Source Skin 10/04/23 10:10 Pulse 70 10/04/23 10:10 Respiratory Rate 18 10/04/23 10:10 Respiratory Effort Normal, Non-Labored 10/04/23 11:22 Blood Pressure 156/109 H 10/04/23 10:10 Blood Pressure Position Sitting 10/04/23 10:10 Pulse Oximetry 98 10/04/23 10:10 Oxygen Delivery Method Room Air 10/04/23 10:10 Oxygen Flow Rate 0 10/04/23 10:10 Pain Level 8 10/04/23 10:10 Medical Decision Making Emergent evaluation of atraumatic left knee pain. Patient does have significant medical history making her high risk for ligamentous disruption. There is no obvious abnormality noted on physical examination. X-ray was obtained and this also is unremarkable. Given her history and symptoms, the patient was provided with crutches to use weightbearing as tolerated as well as a knee immobilizer for comfort and stability. She was referred for outpatient MRI imaging and orthopedic follow-up. Quality:SDOH Health Related Social Needs: No Data to Display PFSH All Active Problems Left knee pain (Acute) Encounter for insertion of mirena IUD (Acute) Cholelithiases (Acute) Abnormal perimenopausal bleeding (Acute) Instability of left shoulder joint (Acute) Tendinopathy of left biceps tendon (Acute) Chiari malformation type I (Acute) Hypertension (Chronic) GERD (gastroesophageal reflux disease) (Chronic) Obstructive sleep apnea (Chronic) Chronic migraine without aura (Acute) Anemia, iron deficiency (Acute) Anxiety and depression (Chronic) Degenerative disc disease, cervical (Acute) Degenerative disc disease, lumbar (Acute) Chronic pain syndrome (Chronic) Rajni-Danlos syndrome (Acute) Sessile serrated polyp of colon (Acute ~05/10/23) X1, 2 hyperplastic Radicular syndrome of right leg (Acute) Paresthesias (Acute) Idiopathic small fiber peripheral neuropathy (Acute) Dysphagia (Acute) Bilateral hip pain (Acute) Thoracic outlet syndrome (Acute) Chronic pain syndrome (Chronic) Hypertension (Chronic) Rajni-Danlos syndrome (Acute) Medical History Screen for colon cancer Essential hypertension Anxiety Degenerative disc disease, lumbar Degenerative disc disease, cervical Chronic low back pain without sciatica Incontinence in female Tobacco use Cervical radiculopathy Fatigue Pain, joint, ankle, left Chiari I malformation Major depression GERD (gastroesophageal reflux disease) Intractable chronic migraine without aura JOSE (obstructive sleep apnea) Surgical History History of laparoscopic cholecystectomy (~06/2023) Hx of colonoscopy (~04/2023) S/P hernia repair Family History Mother Hypertension Diabetes Heart disease Father Hyperlipidemia Social History Smoking/Tobacco Use Status: Current every day Tobacco Type: cigarettes Quit status: has quit before Smoking risk assessment performed?: Yes Alcohol Intake: former Drug use: Occasionally Substance use type: marijuana Household members: spouse and other Details: from [place] Share an apartment. Housing: apartment Number of Children: 2 Education Level: college Details: BA Journalism [employer]. 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
--- NOTE | 2023-10-07 09:00 | NUR.NOTE ---
Patient called asking about an outpatient MRI that she was told to call and schedule. After checking the provider note and speaking with Dr. Espinoza; I told the patient that most MRI's that are ordered outpatient need to be pre approved with insurance before having the exam and that we do not do pre approval through the ED. I told her if her PCP needs any information to call and I would fax it to them so that they can schedule the MRI. She is going to call her PCP. Patient was understanding of this. Nursing Note:
== END 2023-10-04 11:25 | disposition home or self-care (01) ==
PROVIDERS: Emergency Provider Emergency Medicine; PCP Family Medicine
DX: M25.562 Pain in left knee (principal); Q79.60 Ehlers-Danlos syndrome, unspecified
CPT/HCPCS: 29505; 73562; 99283

== ENCOUNTER 2024-03-07 14:34 | Outpatient (REF) | payer MEDICAID, SELFPAY ==
[2024-03-07 21:33] LABS: Abs Immature Grans 0.03 10^3/uL (0.0-0.06); Absolute Basophil Count 0.04 10^3/uL (0.0-0.2); Absolute Eosinophil Count 0.21 10^3/uL (0.0-0.7); Absolute Lymphocyte Count 2.62 10^3/uL (1.2-3.4); Absolute Monocyte Count 0.47 10^3/uL (0.1-0.8); Absolute Neutrophil Count 3.74 10^3/uL (1.2-6.7); Basophils % 0.6 %; HCT 44.5 % (36.0-46.0); HGB 14.4 g/dL (11.2-15.7); Immature Grans % 0.4 %; Lymphocytes % 36.8 %; MCH 29.3 pg (27.0-33.0); MCHC 32.4 % (32.0-36.0); MCV 90 fL (80-95); MPV 9.7 fL (8.0-11.0); Monocytes % 6.6 %; Neutrophils % 52.6 %; Platelet Count 239 10^3/uL (130-400); RBC 4.92 10^6/uL (3.93-5.22); RDW 12.7 % (11.7-14.6); RDW-SD 41.8 fL; WBC 7.11 10^3/uL (4.4-10.8)
[2024-03-07 22:11] LABS: ALT 19 U/L (14-59); AST 11 U/L (15-37); Albumin 3.8 g/dL (3.4-5.0); Alkaline Phosphatase 85 U/L (46-116); Anion Gap 9.2 mmol/L (3-11); BUN 11 mg/dL (7-18); Bilirubin, Total 0.31 mg/dL (0.2-1.0); CO2 25.8 mmol/L (21.0-32.0); CREATININE 0.9 mg/dL (0.55-1.02); Chloride 110 mmol/L (98-107); Estimated GFR 78.86 (mL/min/1.73m2); Ferritin 55 ng/mL (8-252); Glucose 83 mg/dL (74-106); Potassium 3.6 mmol/L (3.5-5.1); Sodium 145 mmol/L (136-145); Total Protein 7.2 g/dL (6.4-8.2)
== END 2024-03-07 14:35 | disposition home or self-care (01) ==
LOC: NCHCN 14:34
PROVIDERS: PCP Family Medicine; Visit Provider Family Medicine
DX: R10.11 Right upper quadrant pain (principal); D50.9 Iron deficiency anemia, unspecified
CPT/HCPCS: 80053; 82728; 85025

== ENCOUNTER 2024-06-29 12:03 | Emergency (ER) | payer MEDICAID, SELFPAY ==
[2024-06-29 11:57] VITALS: BP 137/85; PULSE 66; RESP 18; TEMP 36.7; O2SAT 96
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
[2024-06-29] MEDS: Acetaminophen 500 MG TAB 1000 MG PO (13:31)
[2024-06-29 14:29] VITALS: BP 132/65; PULSE 64; RESP 18; TEMP 36.7; O2SAT 98
[2024-06-29] MEDS: Cyclobenzaprine 10 MG TAB, 3 TABS/BTL PO (14:29)
== END 2024-06-29 14:29 | disposition home or self-care (01) ==
PROVIDERS: Emergency Provider Emergency Medicine; PCP Family Medicine
DX: S09.8XXA Other specified injuries of head, initial encounter (principal); S20.223A Contusion of bilateral back wall of thorax, initial encounter; S16.1XXA Strain of muscle, fascia and tendon at neck level, initial encounter; I10 Essential (primary) hypertension; Q79.60 Ehlers-Danlos syndrome, unspecified; F17.210 Nicotine dependence, cigarettes, uncomplicated; V47.5XXA Car driver injured in collision with fixed or stationary object in traffic accident, initial encounter
CPT/HCPCS: 99284; 70450; 72125; 72128

== ENCOUNTER 2024-09-05 04:14 | Outpatient (CLI) | payer MEDICAID, SELFPAY ==
--- NOTE | 2024-09-05 10:36 | W.NUTRFU ---
Date of service: 09/05/24 Time of Service: 10:00 Nutrition Note NOTE: Viktoriya came in for referred nutrition visit regarding weight mgt/obesity. Viktoriya shares she's had a negative relationship with food in the past as anorexic behaviors were and can still be a challenge. Her ex alexander, she describes as very positive and her best friend,' lives across the [place] in same [facility] building make her dinner each night - she states he knows if he doesn't there is a good chance she wont eat dinner. She sees a counselor/therapist once a week who supports her in these emotional challenges. She manages multiple food allergies and carries an epi-pen. Peanut, rice (mainly white), gluten and especially wheat and watermelon and corn she relates as all allergies. She is looking for guidance for building a healthy diet conducive to weight loss. We reviewed setting up a target pattern first that helps to put her in the best position for weight loss. specifically we discussed trying to avoid skipping breakfast and aim for at least a high protein source shortly after waking and we discussed trying to get dinner in earlier (alexander takes his time and usually has dinner closer to 9pm). We discussed 3 meals and 0-2 planned snacks would be ideal. Then we discussed macro ranges and how to use resource like [employer] to help menu plan according the macros we discuss: 1800kcals, 180g total CHO, 135g protein, 60g fat and no more than 20g added sugar and at least 25g fiber I showed her how to manipulate it to suit her preferences and also how to get help with prepping and shopping lists. She took my card and has my email contact if she should desire follow up or additional resources/questions answered. Time Spent in Nutritional Counseling and Treatment: 40 min
== END 2024-09-05 04:15 | disposition home or self-care (01) ==
LOC: DS 04:14
PROVIDERS: PCP Family Medicine; Visit Provider Dietitian, Registered
DX: E66.9 Obesity, unspecified (principal)
CPT/HCPCS: 00123; 97802

== ENCOUNTER 2024-09-08 15:44 | Emergency (ER) | payer MEDICAID, SELFPAY ==
[2024-09-08 15:53] VITALS: BP 171/100; PULSE 75; RESP 17; TEMP 37; O2SAT 98
[2024-09-08 17:32] LABS: Bilirubin Negative (Negative); Blood Trace-lysed (Negative); Clarity Clear (Clear); Glucose Negative (Negative); Ketones Negative (Negative); Leukocyte Esterase Negative (Negative); Nitrite Negative (Negative); Urobilinogen 0.2 mg/dL (Up to 0.2); pH 6.5 (5-8)
[2024-09-08] MEDS: traMADol 50 MG TAB PO (17:39)
[2024-09-08] MEDS: Gabapentin 400 MG CAP 800 MG PO (17:39)
[2024-09-08 17:40] LABS: Bacteria Negative HPF (Negative); C & S Indicated? No; Casts Negative LPF (Negative); Crystals Negative HPF (Negative); Epithelial Cells Moderate HPF (Negative); Mucus Negative (Negative); RBC 0-2 HPF (0-2); WBC 0-2 HPF (0-5)
[2024-09-08 17:46] LABS: *AMPHETAMINES SCREEN URINE Negative (Negative); *BARBITURATES SCREEN URINE Negative (Negative); *BENZODIAZEPINES SCREEN URINE Negative (Negative); Cannabinoids THC Positive (Negative); Cocaine Screen,Urine Negative (Negative); METHADONE URINE SCREEN Negative (Negative); OPIATES URINE SCREEN Negative (Negative)
[2024-09-08 17:47] LABS: Tricyclic Antidepressants Negative (Negative)
[2024-09-08 18:07] LABS: Abs Immature Grans 0.04 10^3/uL (0.0-0.06); Absolute Basophil Count 0.05 10^3/uL (0.0-0.2); Absolute Eosinophil Count 0.14 10^3/uL (0.0-0.7); Absolute Monocyte Count 0.51 10^3/uL (0.1-0.8); Absolute Neutrophil Count 5.52 10^3/uL (1.2-6.7); Basophils % 0.6 %; Eosinophils % 1.6 %; HCT 41.9 % (36.0-46.0); HGB 13.7 g/dL (11.2-15.7); Immature Grans % 0.4 %; Lymphocytes % 30.1 %; MCH 29.4 pg (27.0-33.0); MCHC 32.7 % (32.0-36.0); MCV 90 fL (80-95); MPV 8.5 fL (8.0-11.0); Monocytes % 5.7 %; Neutrophils % 61.6 %; Platelet Count 230 10^3/uL (130-400); RBC 4.66 10^6/uL (3.93-5.22); RDW 12.6 % (11.7-14.6); WBC 8.96 10^3/uL (4.4-10.8)
[2024-09-08 18:23] LABS: ALT 23 U/L (14-59); AST 10 U/L (15-37); Albumin 3.3 g/dL (3.4-5.0); Alkaline Phosphatase 77 U/L (46-116); Anion Gap 6.2 mmol/L (3-11); BUN 9 mg/dL (7-18); Bilirubin, Total 0.3 mg/dL (0.2-1.0); CO2 27.8 mmol/L (21.0-32.0); Calcium 8.9 mg/dL (8.5-10.1); Chloride 107 mmol/L (98-107); Estimated GFR 69.49 (mL/min/1.73m2); Glucose 80 mg/dL (74-106); Potassium 3.5 mmol/L (3.5-5.1); Sodium 141 mmol/L (136-145); Total Protein 7.1 g/dL (6.4-8.2)
[2024-09-08 18:38] LABS: ETHANOL BLOOD < 3.0 mg/dL (<10)
[2024-09-08 18:43] LABS: Acetaminophen < 2 ug/mL (10-30); Salicylate < 2.8 mg/dL (<2.8)
[2024-09-08 21:40] VITALS: BP 152/105; PULSE 79; RESP 20; TEMP 36.4; O2SAT 99
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
[2024-09-08] MEDS: Metoprolol 50 MG TAB (22:54)
[2024-09-08] MEDS: Topiramate 50 MG TAB (22:55)
[2024-09-08] MEDS: Gabapentin 400 MG CAP ×2 (22:55)
[2024-09-08] MEDS: amLODIPine 5 MG TAB (22:55)
[2024-09-09] MEDS: Omeprazole 20 MG CAPCR PO (07:49)
[2024-09-09 07:53] VITALS: BP 159/101; PULSE 72; RESP 18; O2SAT 99
--- NOTE | 2024-09-09 07:53 | W.EDPROG ---
Date of service: 09/09/24 Time of Service: 07:53 Medical Decision Making Care assumed from outgoing provider. Patient is a 48-year-old female currently pending voluntary inpatient psychiatric placement due to suicidal ideations. Patient has been evaluated by psychiatry and it is recommended that Reassessment to be performed if the patient's status changes away from voluntary and she is interested in leaving. There is a significant concern for this patient. No issues during shift today. Quality:[facility] Health Related Social Needs: No Data to Display Discharge Plan Discharge Details Chief Complaint: PsychEval Primary Care Provider: Parminder Rivera ED Provider: Dorothea Molina Home Meds and New Rx's Prescriptions: No Action atomoxetine [Strattera] 10 mg capsule 60 mg PO QAM Rx Instructions: take 60 mg in the morning. Take 40mg in the afternoon. venlafaxine 225 mg tablet extended release 24hr 225 mg PO DAILY aripiprazole [Abilify] 2 mg tablet 4 mg PO DAILY ketorolac 30 mg/mL (1 mL) solution 30 mg IM ONCE Qty: 1 0RF gabapentin 800 mg tablet 800 mg PO TID Qty: 270 3RF rizatriptan 10 mg tablet See Rx Instructions PO .COMPLEX Qty: 12 11RF Rx Instructions: take 1 tab at onset of headache; if no relief may repeat 1 tab after at least 2 hrs; max = 2 tabs/24 hr PO prochlorperazine maleate 5 mg tablet See Rx Instructions PO TID PRN (Reason: nausea and vomiting or headache) Qty: 30 0RF Rx Instructions: 5-10mg orally three times a day PRN; naloxone 4 mg/actuation spray,non-aerosol 4 mg intranasal Q2M PRN Rx Instructions: spray 1 dose into ONE nostril; alternate nostrils w each dose until help arrives Mirena 21 mcg/24 hours (8 yrs) 52 mg intrauterine device 1 device intrauterine ONCE Qty: 1 0RF Rx Instructions: as a single dose Systane Complete 0.6 % drops 1 drp ophthalmic (eye) DAILY PRN loteprednol etabonate 0.5 % drops,gel 1 drp ophthalmic (eye) QID Rx Instructions: start 24 hours after surgery metoprolol tartrate 50 mg tablet 50 mg PO BID Adult 50 Plus Probiotic 4 billion cell capsule See Rx Instructions .ROUTE .COMPLEX PRN Rx Instructions: as needed amlodipine 10 mg tablet 10 mg PO HS diclofenac sodium 1 % gel 2 g topical QID Rx Instructions: apply to single elbow, wrist or hand; for hand includes palm/fingers/back of hand mupirocin 2 % ointment 1 applic topical BID ketoconazole 2 % cream 1 applic topical DAILY famotidine 10 mg tablet 10 mg PO DAILY lisinopril 10 mg tablet 10 mg PO DAILY cholecalciferol (vitamin D3) 25 mcg (1,000 unit) capsule 25 mcg PO DAILY acetaminophen 325 mg capsule 325 mg PO Q4H PRN tramadol 50 mg tablet 50 mg PO Q6H PRN topiramate 50 mg tablet 100 mg PO BID epinephrine 0.3 mg/0.3 mL auto-injector 0.3 mg IM ONCE Rx Instructions: as a single dose; may repeat once magnesium oxide 400 mg magnesium capsule 400 mg PO DAILY Mirena 21 mcg/24hr (up to 8 yrs) 52 mg intrauterine device 1 device intrauterine ONCE Rx Instructions: as a single dose omeprazole 20 mg capsule,delayed release(DR/EC) 20 mg PO DAILY Probiotic (B. coagulans) 10 billion cell capsule,delayed release(DR/EC) PO
[2024-09-09] MEDS: Lisinopril 10 MG TAB PO (08:17)
[2024-09-09] MEDS: Topiramate 50 MG TAB PO ×2 (08:18→19:13)
[2024-09-09] MEDS: Gabapentin 400 MG CAP 800 MG PO ×3 (08:18→19:13)
[2024-09-09] MEDS: Famotidine 20 MG TAB 10 MG PO (08:19)
[2024-09-09] MEDS: Metoprolol 50 MG TAB PO ×2 (08:20→19:13)
[2024-09-09] MEDS: ARIPiprazole 2 MG TAB 4 MG PO (08:20)
[2024-09-09] MEDS: traMADol 50 MG TAB PO ×2 (08:21→15:29)
[2024-09-09] MEDS: Venlafaxine 75 MG CAPCR 225 MG PO (08:22)
[2024-09-09] MEDS: Nicotine 4 MG GUM CH ×2 (10:34→19:09)
--- NOTE | 2024-09-09 15:06 | PDOC.CMSAFE ---
Date of service: 09/09/24 Time of Service: 15:06 Care Management Safety Plan Status Status: Voluntary Reason for Wait Reason for Wait: Inpatient Admission Safety Plan Safety Plan: VOLUNTARY FOR INPATIENT PSYCHIATRIC STABILIZATION.? Patient is appropriate in all interactions since arriving at [facility]; Pt has demonstrated appropriate coping and communication skills, has articulated her needs and concerns and is fully engaged during staff interactions. Safety plan has been established with patient, and care team, to adhere to patient goals, identify restrictions based on behavioral status, address nutrition, and determine allowed personal belongings, tools for hygiene and personal care. Determine level of activity including ambulation, level of supervision, visitors, and determine privileges based on behaviors and level of engagement by pt. VOLUNTARY SAFETY PLAN: 1. Will remain on suicide precautions, in paper clothes 2. Will remain in Zone B under direct supervision of one-on-one staff at all times provided by [employer]; [employer]AK[employer], [employer] [place] inspector. 3. May have paper cups, plates, finger foods as well as a cardboard spoon with which to eat meals. 4. Follow [facility] Management of the Admitted Behavioral Health Patient policy. 5. Shower available in Zone B without restriction. 6. Personal belongings-soft items permitted at RN discretion. 7. Visitors-none at this time. 8. Activities: soft cart items, hospital tablets ([employer]/[place]+/music) approved per RN discretion. 9.? Bathroom available in Zone B without restriction. 10. Phone: limited to [facility] cordless phone at RN discretion. Due to VOLUNTARY status, if patient wishes to leave [facility], staff will contact [facility] Crisis Screener ([phone]) and Civil Rights Attorney ([phone]) as soon as possible. In the event of elopement, notify [facility] Police ([phone]).
--- NOTE | 2024-09-09 15:11 | PDOC.CMPRO ---
Date of service: 09/09/24 Time of Service: 15:12 Care Management Progress Note Progress Note Text Progress Note Text: Carmelo was admitted on 09/08/24 with depression and suicidal ideation. She has a history of suicide attempts as well as psychiatric hospitalizations. She verbalized intent with an almost compulsive need to act on her SI. She visualizes cutting off her arm or her hands, slitting her wrists or stabbing herself as possible means. carmelo is seeking voluntary hospitalization for psychiatric stabilization. Discharge Plan: Carmelo is seeking voluntary placement in an inpatient psychiatric facility for stabilization. She has been screened by [facility] and meets criteria for inpatient treatment. Social Determinants of Health Screening Will the Patient Participate in the Screening?: Declined to provide
[2024-09-09] MEDS: amLODIPine 5 MG TAB 10 MG PO (19:13)
--- NOTE | 2024-09-10 00:01 | W.EDPROG ---
Date of service: 09/09/24 Time of Service: 16:00 Medical Decision Making This patient was signed out to me. Please see previous notes for H&P and initial eval. In brief, 48yo F presenting with SI. Medically cleared, voluntary, meets EE criteria. Pending placement. No acute events during my shift. Signed out to oncoming physician, plan remains as above. Quality:SDOH Health Related Social Needs: No Data to Display Discharge Plan Discharge Details Chief Complaint: PsychEval Primary Care Provider: Parminder Rivera ED Provider: Kaleigh Goodrich Home Meds and New Rx's Prescriptions: No Action atomoxetine [Strattera] 10 mg capsule 60 mg PO QAM Rx Instructions: take 60 mg in the morning. Take 40mg in the afternoon. venlafaxine 225 mg tablet extended release 24hr 225 mg PO DAILY aripiprazole [Abilify] 2 mg tablet 4 mg PO DAILY ketorolac 30 mg/mL (1 mL) solution 30 mg IM ONCE Qty: 1 0RF gabapentin 800 mg tablet 800 mg PO TID Qty: 270 3RF rizatriptan 10 mg tablet See Rx Instructions PO .COMPLEX Qty: 12 11RF Rx Instructions: take 1 tab at onset of headache; if no relief may repeat 1 tab after at least 2 hrs; max = 2 tabs/24 hr PO prochlorperazine maleate 5 mg tablet See Rx Instructions PO TID PRN (Reason: nausea and vomiting or headache) Qty: 30 0RF Rx Instructions: 5-10mg orally three times a day PRN; naloxone 4 mg/actuation spray,non-aerosol 4 mg intranasal Q2M PRN Rx Instructions: spray 1 dose into ONE nostril; alternate nostrils w each dose until help arrives Mirena 21 mcg/24 hours (8 yrs) 52 mg intrauterine device 1 device intrauterine ONCE Qty: 1 0RF Rx Instructions: as a single dose Systane Complete 0.6 % drops 1 drp ophthalmic (eye) DAILY PRN loteprednol etabonate 0.5 % drops,gel 1 drp ophthalmic (eye) QID Rx Instructions: start 24 hours after surgery metoprolol tartrate 50 mg tablet 50 mg PO BID Adult 50 Plus Probiotic 4 billion cell capsule See Rx Instructions .ROUTE .COMPLEX PRN Rx Instructions: as needed amlodipine 10 mg tablet 10 mg PO HS diclofenac sodium 1 % gel 2 g topical QID Rx Instructions: apply to single elbow, wrist or hand; for hand includes palm/fingers/back of hand mupirocin 2 % ointment 1 applic topical BID ketoconazole 2 % cream 1 applic topical DAILY famotidine 10 mg tablet 10 mg PO DAILY lisinopril 10 mg tablet 10 mg PO DAILY cholecalciferol (vitamin D3) 25 mcg (1,000 unit) capsule 25 mcg PO DAILY acetaminophen 325 mg capsule 325 mg PO Q4H PRN tramadol 50 mg tablet 50 mg PO Q6H PRN topiramate 50 mg tablet 100 mg PO BID epinephrine 0.3 mg/0.3 mL auto-injector 0.3 mg IM ONCE Rx Instructions: as a single dose; may repeat once magnesium oxide 400 mg magnesium capsule 400 mg PO DAILY Mirena 21 mcg/24hr (up to 8 yrs) 52 mg intrauterine device 1 device intrauterine ONCE Rx Instructions: as a single dose omeprazole 20 mg capsule,delayed release(DR/EC) 20 mg PO DAILY Probiotic (B. coagulans) 10 billion cell capsule,delayed release(DR/EC) PO
[2024-09-10] MEDS: traMADol 50 MG TAB PO ×4 (01:56→20:11)
[2024-09-10] MEDS: Rizatriptan 10 MG TAB PO ×2 (02:07→20:12)
[2024-09-10] MEDS: Lisinopril 10 MG TAB PO (07:45)
[2024-09-10] MEDS: Famotidine 20 MG TAB 10 MG PO (07:45)
[2024-09-10] MEDS: Omeprazole 20 MG CAPCR PO (07:45)
[2024-09-10] MEDS: Topiramate 50 MG TAB PO ×2 (07:46→20:08)
[2024-09-10] MEDS: ARIPiprazole 2 MG TAB 4 MG PO (07:46)
[2024-09-10] MEDS: Venlafaxine 75 MG CAPCR 225 MG PO (07:46)
[2024-09-10] MEDS: Metoprolol 50 MG TAB PO ×2 (07:47→20:11)
[2024-09-10] MEDS: Gabapentin 400 MG CAP 800 MG PO ×3 (07:47→20:11)
[2024-09-10 08:07] VITALS: BP 143/99; PULSE 63; RESP 16; TEMP 36.8; O2SAT 100
[2024-09-10] MEDS: Nicotine 4 MG GUM CH ×2 (11:05→20:11)
--- NOTE | 2024-09-10 12:41 | PDOC.CMSAFE ---
Date of service: 09/10/24 Time of Service: 12:41 Care Management Safety Plan Status Status: Voluntary Reason for Wait Reason for Wait: Inpatient Admission Safety Plan Safety Plan: VOLUNTARY FOR INPATIENT PSYCHIATRIC STABILIZATION.? Patient is appropriate in all interactions since arriving at [facility]; Pt has demonstrated appropriate coping and communication skills, has articulated her needs and concerns and is fully engaged during staff interactions. Safety plan has been established with patient, and care team, to adhere to patient goals, identify restrictions based on behavioral status, address nutrition, and determine allowed personal belongings, tools for hygiene and personal care. Determine level of activity including ambulation, level of supervision, visitors, and determine privileges based on behaviors and level of engagement by pt. VOLUNTARY SAFETY PLAN: 1. Will remain on suicide precautions, in paper clothes 2. Will remain in Zone B under direct supervision of one-on-one staff at all times provided by [employer]; SHAKIR, SCRATCH BRUSHER larry operator. 3. May have paper cups, plates, finger foods as well as a cardboard spoon with which to eat meals. 4. Follow [facility] Management of the Admitted Behavioral Health Patient policy. 5. Shower available in Zone B without restriction. 6. Personal belongings-soft items permitted at RN discretion. 7. Visitors-none at this time. 8. Activities: soft cart items, hospital tablets (Netflix/Alligator+/music) approved per RN discretion. 9.? Bathroom available in Zone B without restriction. 10. Phone: limited to [facility] cordless phone at RN discretion. Due to VOLUNTARY status, if patient wishes to leave [facility], staff will contact [facility] Crisis Screener ([phone]) and Home Administrator ([phone]) as soon as possible. In the event of elopement, notify [facility] Police ([phone]).
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
--- NOTE | 2024-09-10 15:28 | W.EDPROG ---
Date of service: 09/10/24 Time of Service: 15:28 Medical Decision Making Care assumed from off going provider. No issues during shift today. Quality:[facility] Health Related Social Needs: No Data to Display Discharge Plan Discharge Details Chief Complaint: PsychEval Primary Care Provider: Parminder Rivera ED Provider: Dorothea Molina Home Meds and New Rx's Prescriptions: No Action atomoxetine [Strattera] 10 mg capsule 60 mg PO QAM Rx Instructions: take 60 mg in the morning. Take 40mg in the afternoon. venlafaxine 225 mg tablet extended release 24hr 225 mg PO DAILY aripiprazole [Abilify] 2 mg tablet 4 mg PO DAILY ketorolac 30 mg/mL (1 mL) solution 30 mg IM ONCE Qty: 1 0RF gabapentin 800 mg tablet 800 mg PO TID Qty: 270 3RF rizatriptan 10 mg tablet See Rx Instructions PO .COMPLEX Qty: 12 11RF Rx Instructions: take 1 tab at onset of headache; if no relief may repeat 1 tab after at least 2 hrs; max = 2 tabs/24 hr PO prochlorperazine maleate 5 mg tablet See Rx Instructions PO TID PRN (Reason: nausea and vomiting or headache) Qty: 30 0RF Rx Instructions: 5-10mg orally three times a day PRN; naloxone 4 mg/actuation spray,non-aerosol 4 mg intranasal Q2M PRN Rx Instructions: spray 1 dose into ONE nostril; alternate nostrils w each dose until help arrives Mirena 21 mcg/24 hours (8 yrs) 52 mg intrauterine device 1 device intrauterine ONCE Qty: 1 0RF Rx Instructions: as a single dose Systane Complete 0.6 % drops 1 drp ophthalmic (eye) DAILY PRN loteprednol etabonate 0.5 % drops,gel 1 drp ophthalmic (eye) QID Rx Instructions: start 24 hours after surgery metoprolol tartrate 50 mg tablet 50 mg PO BID Adult 50 Plus Probiotic 4 billion cell capsule See Rx Instructions .ROUTE .COMPLEX PRN Rx Instructions: as needed amlodipine 10 mg tablet 10 mg PO HS diclofenac sodium 1 % gel 2 g topical QID Rx Instructions: apply to single elbow, wrist or hand; for hand includes palm/fingers/back of hand mupirocin 2 % ointment 1 applic topical BID ketoconazole 2 % cream 1 applic topical DAILY famotidine 10 mg tablet 10 mg PO DAILY lisinopril 10 mg tablet 10 mg PO DAILY cholecalciferol (vitamin D3) 25 mcg (1,000 unit) capsule 25 mcg PO DAILY acetaminophen 325 mg capsule 325 mg PO Q4H PRN tramadol 50 mg tablet 50 mg PO Q6H PRN topiramate 50 mg tablet 100 mg PO BID epinephrine 0.3 mg/0.3 mL auto-injector 0.3 mg IM ONCE Rx Instructions: as a single dose; may repeat once magnesium oxide 400 mg magnesium capsule 400 mg PO DAILY Mirena 21 mcg/24hr (up to 8 yrs) 52 mg intrauterine device 1 device intrauterine ONCE Rx Instructions: as a single dose omeprazole 20 mg capsule,delayed release(DR/EC) 20 mg PO DAILY Probiotic (B. coagulans) 10 billion cell capsule,delayed release(DR/EC) PO
[2024-09-10 17:38] VITALS: PULSE 104
[2024-09-10] MEDS: amLODIPine 5 MG TAB 10 MG PO (20:11)
--- NOTE | 2024-09-10 20:33 | ED.PROG_ITS ---
Date of service: 09/10/24 Time of Service: 16:00 Medical Decision Making This patient was signed out to me. Please see previous notes for H&P and initial eval. In brief, 48yo F presenting with SI. Medically cleared, voluntary, meets EE criteria. Pending placement. SHIRLEY this evening, states identical to her typical migraines. Requests her home triptan which was ordered; good response to medication. Signed out to oncoming physician, plan remains as above. Quality:[facility] Health Related Social Needs: No Data to Display Discharge Plan Discharge Details Chief Complaint: PsychEval Primary Care Provider: Parminder Rivera ED Provider: Kaleigh Goodrich Home Meds and New Rx's Prescriptions: No Action atomoxetine [Strattera] 10 mg capsule 60 mg PO QAM Rx Instructions: take 60 mg in the morning. Take 40mg in the afternoon. venlafaxine 225 mg tablet extended release 24hr 225 mg PO DAILY aripiprazole [Abilify] 2 mg tablet 4 mg PO DAILY ketorolac 30 mg/mL (1 mL) solution 30 mg IM ONCE Qty: 1 0RF gabapentin 800 mg tablet 800 mg PO TID Qty: 270 3RF rizatriptan 10 mg tablet See Rx Instructions PO .COMPLEX Qty: 12 11RF Rx Instructions: take 1 tab at onset of headache; if no relief may repeat 1 tab after at least 2 hrs; max = 2 tabs/24 hr PO prochlorperazine maleate 5 mg tablet See Rx Instructions PO TID PRN (Reason: nausea and vomiting or headache) Qty: 30 0RF Rx Instructions: 5-10mg orally three times a day PRN; naloxone 4 mg/actuation spray,non-aerosol 4 mg intranasal Q2M PRN Rx Instructions: spray 1 dose into ONE nostril; alternate nostrils w each dose until help arrives Mirena 21 mcg/24 hours (8 yrs) 52 mg intrauterine device 1 device intrauterine ONCE Qty: 1 0RF Rx Instructions: as a single dose Systane Complete 0.6 % drops 1 drp ophthalmic (eye) DAILY PRN loteprednol etabonate 0.5 % drops,gel 1 drp ophthalmic (eye) QID Rx Instructions: start 24 hours after surgery metoprolol tartrate 50 mg tablet 50 mg PO BID Adult 50 Plus Probiotic 4 billion cell capsule See Rx Instructions .ROUTE .COMPLEX PRN Rx Instructions: as needed amlodipine 10 mg tablet 10 mg PO HS diclofenac sodium 1 % gel 2 g topical QID Rx Instructions: apply to single elbow, wrist or hand; for hand includes palm/fingers/back of hand mupirocin 2 % ointment 1 applic topical BID ketoconazole 2 % cream 1 applic topical DAILY famotidine 10 mg tablet 10 mg PO DAILY lisinopril 10 mg tablet 10 mg PO DAILY cholecalciferol (vitamin D3) 25 mcg (1,000 unit) capsule 25 mcg PO DAILY acetaminophen 325 mg capsule 325 mg PO Q4H PRN tramadol 50 mg tablet 50 mg PO Q6H PRN topiramate 50 mg tablet 100 mg PO BID epinephrine 0.3 mg/0.3 mL auto-injector 0.3 mg IM ONCE Rx Instructions: as a single dose; may repeat once magnesium oxide 400 mg magnesium capsule 400 mg PO DAILY Mirena 21 mcg/24hr (up to 8 yrs) 52 mg intrauterine device 1 device intrauterine ONCE Rx Instructions: as a single dose omeprazole 20 mg capsule,delayed release(DR/EC) 20 mg PO DAILY Probiotic (B. coagulans) 10 billion cell capsule,delayed release(DR/EC) PO
[2024-09-11] MEDS: Nicotine 4 MG GUM CH ×4 (02:02→18:22)
[2024-09-11] MEDS: Famotidine 20 MG TAB 10 MG PO (07:47)
[2024-09-11] MEDS: ARIPiprazole 2 MG TAB 4 MG PO (07:48)
[2024-09-11] MEDS: Metoprolol 50 MG TAB PO ×2 (07:48→19:26)
[2024-09-11] MEDS: Lisinopril 10 MG TAB PO (07:49)
[2024-09-11] MEDS: Omeprazole 20 MG CAPCR PO (07:49)
[2024-09-11] MEDS: traMADol 50 MG TAB PO ×3 (07:49→20:40)
[2024-09-11] MEDS: Gabapentin 400 MG CAP 800 MG PO ×3 (07:49→19:26)
[2024-09-11] MEDS: Topiramate 50 MG TAB PO ×2 (07:49→19:26)
[2024-09-11] MEDS: Venlafaxine 75 MG CAPCR 225 MG PO (07:49)
[2024-09-11 07:56] VITALS: BP 138/97; PULSE 71; RESP 21; TEMP 37.1; O2SAT 98
--- NOTE | 2024-09-11 08:02 | ED.PROG_ITS ---
Date of service: 09/11/24 Time of Service: 08:02 Medical Decision Making In brief, this is a 48-year-old female patient boarding in our emergency department with suicidal ideation and a plan to strangle herself. Prior to my taking over their care, the patient was medically cleared, and has been resting comfortably. They have met with the geriatric social worker and we are awaiting final dispo. They have not required any additional medications for restraint or sedation. The patient was signed out to the oncoming provider prior to final disposition. Remained hemodynamically appropriate, calm, cooperative, and comfortable while under my care. Zonia Nails MD Quality:[facility] Health Related Social Needs: No Data to Display Discharge Plan Discharge Details Chief Complaint: PsychEval Primary Care Provider: Parminder Rivera ED Provider: Zonia Nails Home Meds and New Rx's Prescriptions: No Action atomoxetine [Strattera] 10 mg capsule 60 mg PO QAM Rx Instructions: take 60 mg in the morning. Take 40mg in the afternoon. venlafaxine 225 mg tablet extended release 24hr 225 mg PO DAILY aripiprazole [Abilify] 2 mg tablet 4 mg PO DAILY ketorolac 30 mg/mL (1 mL) solution 30 mg IM ONCE Qty: 1 0RF gabapentin 800 mg tablet 800 mg PO TID Qty: 270 3RF rizatriptan 10 mg tablet See Rx Instructions PO .COMPLEX Qty: 12 11RF Rx Instructions: take 1 tab at onset of headache; if no relief may repeat 1 tab after at least 2 hrs; max = 2 tabs/24 hr PO prochlorperazine maleate 5 mg tablet See Rx Instructions PO TID PRN (Reason: nausea and vomiting or headache) Qty: 30 0RF Rx Instructions: 5-10mg orally three times a day PRN; naloxone 4 mg/actuation spray,non-aerosol 4 mg intranasal Q2M PRN Rx Instructions: spray 1 dose into ONE nostril; alternate nostrils w each dose until help arrives Mirena 21 mcg/24 hours (8 yrs) 52 mg intrauterine device 1 device intrauterine ONCE Qty: 1 0RF Rx Instructions: as a single dose Systane Complete 0.6 % drops 1 drp ophthalmic (eye) DAILY PRN loteprednol etabonate 0.5 % drops,gel 1 drp ophthalmic (eye) QID Rx Instructions: start 24 hours after surgery metoprolol tartrate 50 mg tablet 50 mg PO BID Adult 50 Plus Probiotic 4 billion cell capsule See Rx Instructions .ROUTE .COMPLEX PRN Rx Instructions: as needed amlodipine 10 mg tablet 10 mg PO HS diclofenac sodium 1 % gel 2 g topical QID Rx Instructions: apply to single elbow, wrist or hand; for hand includes palm/fingers/back of hand mupirocin 2 % ointment 1 applic topical BID ketoconazole 2 % cream 1 applic topical DAILY famotidine 10 mg tablet 10 mg PO DAILY lisinopril 10 mg tablet 10 mg PO DAILY cholecalciferol (vitamin D3) 25 mcg (1,000 unit) capsule 25 mcg PO DAILY acetaminophen 325 mg capsule 325 mg PO Q4H PRN tramadol 50 mg tablet 50 mg PO Q6H PRN topiramate 50 mg tablet 100 mg PO BID epinephrine 0.3 mg/0.3 mL auto-injector 0.3 mg IM ONCE Rx Instructions: as a single dose; may repeat once magnesium oxide 400 mg magnesium capsule 400 mg PO DAILY Mirena 21 mcg/24hr (up to 8 yrs) 52 mg intrauterine device 1 device intrauterine ONCE Rx Instructions: as a single dose omeprazole 20 mg capsule,delayed release(DR/EC) 20 mg PO DAILY Probiotic (B. coagulans) 10 billion cell capsule,delayed release(DR/EC) PO
--- NOTE | 2024-09-11 08:56 | CMSP_ITS ---
Date of service: 09/11/24 Time of Service: 08:57 Care Management Safety Plan Status Status: Voluntary Reason for Wait Reason for Wait: Inpatient Admission Safety Plan Safety Plan: VOLUNTARY FOR INPATIENT PSYCHIATRIC STABILIZATION.? Patient is appropriate in all interactions since arriving at [facility]; Pt has demonstrated appropriate coping and communication skills, has articulated her needs and concerns and is fully engaged during staff interactions. Safety plan has been established with patient, and care team, to adhere to patient goals, identify restrictions based on behavioral status, address nutrition, and determine allowed personal belongings, tools for hygiene and personal care. Determine level of activity including ambulation, level of supervision, visitors, and determine privileges based on behaviors and level of engagement by pt. VOLUNTARY SAFETY PLAN: 1. Will remain on suicide precautions, in paper clothes 2. Will remain in Zone B under direct supervision of one-on-one staff at all times provided by [employer]; SHAKIR, MACHINE STACKER skydiving instructor. 3. May have paper cups, plates, finger foods as well as a cardboard spoon with which to eat meals. 4. Follow [facility] Management of the Admitted Behavioral Health Patient policy. 5. Shower available in Zone B without restriction. 6. Personal belongings-soft items permitted at RN discretion. 7. Visitors-none at this time. 8. Activities: soft cart items, hospital tablets (Netflix/[place]+/music) approved per RN discretion. 9.? Bathroom available in Zone B without restriction. 10. Phone: limited to [facility] cordless phone at RN discretion. Due to VOLUNTARY status, if patient wishes to leave [facility], staff will contact [facility] Crisis Screener ([phone]) and Senior Instructor ([phone]) as soon as possible. In the event of elopement, notify [facility] Police ([phone]).
[2024-09-11] MEDS: amLODIPine 5 MG TAB 10 MG PO (19:26)
--- NOTE | 2024-09-12 06:46 | ED.PROG_ITS ---
Date of service: 09/12/24 Time of Service: 06:48 Medical Decision Making The patient is a 48-year-old female, currently a voluntary placement for suicidal ideation. She had a telepsych visit and they felt that she could should be converted to an EE if she attempts to leave. The patient slept comfortably over the arc of the overnight shift and did not require any changes in management. Quality:[facility] Health Related Social Needs: No Data to Display Discharge Plan Discharge Details Chief Complaint: PsychEval Primary Care Provider: Parminder Rivera ED Provider: Del Sanchez Home Meds and New Rx's Prescriptions: No Action atomoxetine [Strattera] 10 mg capsule 60 mg PO QAM Rx Instructions: take 60 mg in the morning. Take 40mg in the afternoon. venlafaxine 225 mg tablet extended release 24hr 225 mg PO DAILY aripiprazole [Abilify] 2 mg tablet 4 mg PO DAILY ketorolac 30 mg/mL (1 mL) solution 30 mg IM ONCE Qty: 1 0RF gabapentin 800 mg tablet 800 mg PO TID Qty: 270 3RF rizatriptan 10 mg tablet See Rx Instructions PO .COMPLEX Qty: 12 11RF Rx Instructions: take 1 tab at onset of headache; if no relief may repeat 1 tab after at least 2 hrs; max = 2 tabs/24 hr PO prochlorperazine maleate 5 mg tablet See Rx Instructions PO TID PRN (Reason: nausea and vomiting or headache) Qty: 30 0RF Rx Instructions: 5-10mg orally three times a day PRN; naloxone 4 mg/actuation spray,non-aerosol 4 mg intranasal Q2M PRN Rx Instructions: spray 1 dose into ONE nostril; alternate nostrils w each dose until help arrives Mirena 21 mcg/24 hours (8 yrs) 52 mg intrauterine device 1 device intrauterine ONCE Qty: 1 0RF Rx Instructions: as a single dose Systane Complete 0.6 % drops 1 drp ophthalmic (eye) DAILY PRN loteprednol etabonate 0.5 % drops,gel 1 drp ophthalmic (eye) QID Rx Instructions: start 24 hours after surgery metoprolol tartrate 50 mg tablet 50 mg PO BID Adult 50 Plus Probiotic 4 billion cell capsule See Rx Instructions .ROUTE .COMPLEX PRN Rx Instructions: as needed amlodipine 10 mg tablet 10 mg PO HS diclofenac sodium 1 % gel 2 g topical QID Rx Instructions: apply to single elbow, wrist or hand; for hand includes palm/fingers/back of hand mupirocin 2 % ointment 1 applic topical BID ketoconazole 2 % cream 1 applic topical DAILY famotidine 10 mg tablet 10 mg PO DAILY lisinopril 10 mg tablet 10 mg PO DAILY cholecalciferol (vitamin D3) 25 mcg (1,000 unit) capsule 25 mcg PO DAILY acetaminophen 325 mg capsule 325 mg PO Q4H PRN tramadol 50 mg tablet 50 mg PO Q6H PRN topiramate 50 mg tablet 100 mg PO BID epinephrine 0.3 mg/0.3 mL auto-injector 0.3 mg IM ONCE Rx Instructions: as a single dose; may repeat once magnesium oxide 400 mg magnesium capsule 400 mg PO DAILY Mirena 21 mcg/24hr (up to 8 yrs) 52 mg intrauterine device 1 device intrauterine ONCE Rx Instructions: as a single dose omeprazole 20 mg capsule,delayed release(DR/EC) 20 mg PO DAILY Probiotic (B. coagulans) 10 billion cell capsule,delayed release(DR/EC) PO
--- NOTE | 2024-09-12 06:55 | ED.PROG_ITS ---
Date of service: 09/12/24 Time of Service: 06:55 Medical Decision Making In brief, this is a 48-year-old female patient with a history of JOSE, postconcussive syndrome, and hypertension boarding in our emergency department with suicidal ideations. She was medically cleared prior to my taking over her care, has been resting comfortably and has not required any acute interventions for restraint or sedation. She has been taking her medications without incident. She was signed out to the oncoming provider prior to final disposition. Zonia Nails MD Medical Records Medical records reviewed: Yes I reviewed the patient's medical records. Quality:[facility] Health Related Social Needs: No Data to Display Discharge Plan Discharge Details Chief Complaint: PsychEval Primary Care Provider: Parminder Rivera ED Provider: Zonia Nails Home Meds and New Rx's Prescriptions: No Action atomoxetine [Strattera] 10 mg capsule 60 mg PO QAM Rx Instructions: take 60 mg in the morning. Take 40mg in the afternoon. venlafaxine 225 mg tablet extended release 24hr 225 mg PO DAILY aripiprazole [Abilify] 2 mg tablet 4 mg PO DAILY ketorolac 30 mg/mL (1 mL) solution 30 mg IM ONCE Qty: 1 0RF gabapentin 800 mg tablet 800 mg PO TID Qty: 270 3RF rizatriptan 10 mg tablet See Rx Instructions PO .COMPLEX Qty: 12 11RF Rx Instructions: take 1 tab at onset of headache; if no relief may repeat 1 tab after at least 2 hrs; max = 2 tabs/24 hr PO prochlorperazine maleate 5 mg tablet See Rx Instructions PO TID PRN (Reason: nausea and vomiting or headache) Qty: 30 0RF Rx Instructions: 5-10mg orally three times a day PRN; naloxone 4 mg/actuation spray,non-aerosol 4 mg intranasal Q2M PRN Rx Instructions: spray 1 dose into ONE nostril; alternate nostrils w each dose until help arrives Mirena 21 mcg/24 hours (8 yrs) 52 mg intrauterine device 1 device intrauterine ONCE Qty: 1 0RF Rx Instructions: as a single dose Systane Complete 0.6 % drops 1 drp ophthalmic (eye) DAILY PRN loteprednol etabonate 0.5 % drops,gel 1 drp ophthalmic (eye) QID Rx Instructions: start 24 hours after surgery metoprolol tartrate 50 mg tablet 50 mg PO BID Adult 50 Plus Probiotic 4 billion cell capsule See Rx Instructions .ROUTE .COMPLEX PRN Rx Instructions: as needed amlodipine 10 mg tablet 10 mg PO HS diclofenac sodium 1 % gel 2 g topical QID Rx Instructions: apply to single elbow, wrist or hand; for hand includes palm/fingers/back of hand mupirocin 2 % ointment 1 applic topical BID ketoconazole 2 % cream 1 applic topical DAILY famotidine 10 mg tablet 10 mg PO DAILY lisinopril 10 mg tablet 10 mg PO DAILY cholecalciferol (vitamin D3) 25 mcg (1,000 unit) capsule 25 mcg PO DAILY acetaminophen 325 mg capsule 325 mg PO Q4H PRN tramadol 50 mg tablet 50 mg PO Q6H PRN topiramate 50 mg tablet 100 mg PO BID epinephrine 0.3 mg/0.3 mL auto-injector 0.3 mg IM ONCE Rx Instructions: as a single dose; may repeat once magnesium oxide 400 mg magnesium capsule 400 mg PO DAILY Mirena 21 mcg/24hr (up to 8 yrs) 52 mg intrauterine device 1 device intrauterine ONCE Rx Instructions: as a single dose omeprazole 20 mg capsule,delayed release(DR/EC) 20 mg PO DAILY Probiotic (B. coagulans) 10 billion cell capsule,delayed release(DR/EC) PO
[2024-09-12 07:21] VITALS: BP 132/92; PULSE 70; RESP 18; TEMP 36.4; O2SAT 97
[2024-09-12] MEDS: Omeprazole 20 MG CAPCR PO (07:28)
[2024-09-12] MEDS: ARIPiprazole 2 MG TAB 4 MG PO (08:11)
--- NOTE | 2024-09-12 08:11 | PDOC.CMSAFE ---
Care Management Safety Plan Status Status: Voluntary Reason for Wait Reason for Wait: Inpatient Admission Safety Plan Safety Plan: VOLUNTARY FOR INPATIENT PSYCHIATRIC STABILIZATION.? Patient is appropriate in all interactions since arriving at [facility]; Pt has demonstrated appropriate coping and communication skills, has articulated her needs and concerns and is fully engaged during staff interactions. Safety plan has been established with patient, and care team, to adhere to patient goals, identify restrictions based on behavioral status, address nutrition, and determine allowed personal belongings, tools for hygiene and personal care. Determine level of activity including ambulation, level of supervision, visitors, and determine privileges based on behaviors and level of engagement by pt. VOLUNTARY SAFETY PLAN: 1. Will remain on suicide precautions, in paper clothes 2. Will remain in Zone B under direct supervision of one-on-one staff at all times provided by [employer]; SHAKIR, NURSING TEACHER paste up copy camera operator. 3. May have paper cups, plates, finger foods as well as a cardboard spoon with which to eat meals. 4. Follow [facility] Management of the Admitted Behavioral Health Patient policy. 5. Shower available in Zone B without restriction. 6. Personal belongings-soft items permitted at RN discretion. 7. Visitors- may visit at RN discretion. No other visitors allowed at this time. 8. Activities: soft cart items, hospital tablets (Netflix/Elsa+/music) approved per RN discretion. 9.? Bathroom available in Zone B without restriction. 10. Phone: limited to [facility] cordless phone at RN discretion. Due to VOLUNTARY status, if patient wishes to leave [facility], staff will contact [facility] Crisis Screener ([phone]) and Sulfuric Acid Plant Operator ([phone]) as soon as possible. In the event of elopement, notify [facility] Police ([phone]).
[2024-09-12] MEDS: Topiramate 50 MG TAB PO ×2 (08:12→21:42)
[2024-09-12] MEDS: Venlafaxine 75 MG CAPCR 225 MG PO (08:12)
[2024-09-12] MEDS: Famotidine 20 MG TAB 10 MG PO (08:12)
[2024-09-12] MEDS: Gabapentin 400 MG CAP 800 MG PO ×4 (08:12→21:42)
[2024-09-12] MEDS: Metoprolol 50 MG TAB PO ×2 (08:12→21:42)
[2024-09-12] MEDS: Lisinopril 10 MG TAB PO (08:12)
[2024-09-12] MEDS: traMADol 50 MG TAB PO ×3 (08:19→21:42)
[2024-09-12] MEDS: Nicotine 4 MG GUM CH ×2 (09:37→14:03)
--- NOTE | 2024-09-12 12:48 | PDOC.CMPRO ---
Date of service: 09/12/24 Time of Service: 12:48 Care Management Progress Note Progress Note Text Progress Note Text: CM huddled with ED staff regarding Viktoriya's plan of care. Per RN, Viktoriya has been appropriate and cooperative today. Her visited earlier today, care management was reached out to and asked for him to be added to the safety plan; all were in agreement to have him visit, and per report, the visit was supportive and went well. Per [facility], Alexsander and Angella are reviewing the referral today. Viktoriya is voluntary, seeking inpatient psychiatric treatment. Referrals were sent to all facilities. Safety plan in place; CM will continue to follow. Social Determinants of Health Screening Will the Patient Participate in the Screening?: Declined to provide
[2024-09-12] MEDS: amLODIPine 5 MG TAB 10 MG PO (21:42)
--- NOTE | 2024-09-12 22:12 | W.EDPROG ---
Date of service: 09/12/24 Time of Service: 22:12 Medical Decision Making Patient remains in ED voluntarily waiting for inpatient admission for SI and depression. No issues on my shift. Discharge Plan Discharge Details Chief Complaint: PsychEval Clinical Impression: Depression, Suicidal ideation Primary Care Provider: Parminder Rivera ED Provider: Av Harris [place] Meds and New Rx's Prescriptions: No Action atomoxetine [Strattera] 10 mg capsule 60 mg PO QAM Rx Instructions: take 60 mg in the morning. Take 40mg in the afternoon. venlafaxine 225 mg tablet extended release 24hr 225 mg PO DAILY aripiprazole [Abilify] 2 mg tablet 4 mg PO DAILY ketorolac 30 mg/mL (1 mL) solution 30 mg IM ONCE Qty: 1 0RF gabapentin 800 mg tablet 800 mg PO TID Qty: 270 3RF rizatriptan 10 mg tablet See Rx Instructions PO .COMPLEX Qty: 12 11RF Rx Instructions: take 1 tab at onset of headache; if no relief may repeat 1 tab after at least 2 hrs; max = 2 tabs/24 hr PO prochlorperazine maleate 5 mg tablet See Rx Instructions PO TID PRN (Reason: nausea and vomiting or headache) Qty: 30 0RF Rx Instructions: 5-10mg orally three times a day PRN; naloxone 4 mg/actuation spray,non-aerosol 4 mg intranasal Q2M PRN Rx Instructions: spray 1 dose into ONE nostril; alternate nostrils w each dose until help arrives Mirena 21 mcg/24 hours (8 yrs) 52 mg intrauterine device 1 device intrauterine ONCE Qty: 1 0RF Rx Instructions: as a single dose Systane Complete 0.6 % drops 1 drp ophthalmic (eye) DAILY PRN loteprednol etabonate 0.5 % drops,gel 1 drp ophthalmic (eye) QID Rx Instructions: start 24 hours after surgery metoprolol tartrate 50 mg tablet 50 mg PO BID Adult 50 Plus Probiotic 4 billion cell capsule See Rx Instructions .ROUTE .COMPLEX PRN Rx Instructions: as needed amlodipine 10 mg tablet 10 mg PO HS diclofenac sodium 1 % gel 2 g topical QID Rx Instructions: apply to single elbow, wrist or hand; for hand includes palm/fingers/back of hand mupirocin 2 % ointment 1 applic topical BID ketoconazole 2 % cream 1 applic topical DAILY famotidine 10 mg tablet 10 mg PO DAILY lisinopril 10 mg tablet 10 mg PO DAILY cholecalciferol (vitamin D3) 25 mcg (1,000 unit) capsule 25 mcg PO DAILY acetaminophen 325 mg capsule 325 mg PO Q4H PRN tramadol 50 mg tablet 50 mg PO Q6H PRN topiramate 50 mg tablet 100 mg PO BID epinephrine 0.3 mg/0.3 mL auto-injector 0.3 mg IM ONCE Rx Instructions: as a single dose; may repeat once magnesium oxide 400 mg magnesium capsule 400 mg PO DAILY Mirena 21 mcg/24hr (up to 8 yrs) 52 mg intrauterine device 1 device intrauterine ONCE Rx Instructions: as a single dose omeprazole 20 mg capsule,delayed release(DR/EC) 20 mg PO DAILY Probiotic (B. coagulans) 10 billion cell capsule,delayed release(DR/EC) PO
--- NOTE | 2024-09-13 06:49 | ED.GENADUL_ITS ---
Discharge Plan Discharge Details Chief Complaint: PsychEval Clinical Impression: Depression, Suicidal ideation Primary Care Provider: Parminder Rivera ED Provider: Del Sanchez Home Meds and New Rx's Prescriptions: No Action atomoxetine [Strattera] 10 mg capsule 60 mg PO QAM Rx Instructions: take 60 mg in the morning. Take 40mg in the afternoon. venlafaxine 225 mg tablet extended release 24hr 225 mg PO DAILY aripiprazole [Abilify] 2 mg tablet 4 mg PO DAILY ketorolac 30 mg/mL (1 mL) solution 30 mg IM ONCE Qty: 1 0RF gabapentin 800 mg tablet 800 mg PO TID Qty: 270 3RF rizatriptan 10 mg tablet See Rx Instructions PO .COMPLEX Qty: 12 11RF Rx Instructions: take 1 tab at onset of headache; if no relief may repeat 1 tab after at least 2 hrs; max = 2 tabs/24 hr PO prochlorperazine maleate 5 mg tablet See Rx Instructions PO TID PRN (Reason: nausea and vomiting or headache) Qty: 30 0RF Rx Instructions: 5-10mg orally three times a day PRN; naloxone 4 mg/actuation spray,non-aerosol 4 mg intranasal Q2M PRN Rx Instructions: spray 1 dose into ONE nostril; alternate nostrils w each dose until help arrives Mirena 21 mcg/24 hours (8 yrs) 52 mg intrauterine device 1 device intrauterine ONCE Qty: 1 0RF Rx Instructions: as a single dose Systane Complete 0.6 % drops 1 drp ophthalmic (eye) DAILY PRN loteprednol etabonate 0.5 % drops,gel 1 drp ophthalmic (eye) QID Rx Instructions: start 24 hours after surgery metoprolol tartrate 50 mg tablet 50 mg PO BID Adult 50 Plus Probiotic 4 billion cell capsule See Rx Instructions .ROUTE .COMPLEX PRN Rx Instructions: as needed amlodipine 10 mg tablet 10 mg PO HS diclofenac sodium 1 % gel 2 g topical QID Rx Instructions: apply to single elbow, wrist or hand; for hand includes palm/fingers/back of hand mupirocin 2 % ointment 1 applic topical BID ketoconazole 2 % cream 1 applic topical DAILY famotidine 10 mg tablet 10 mg PO DAILY lisinopril 10 mg tablet 10 mg PO DAILY cholecalciferol (vitamin D3) 25 mcg (1,000 unit) capsule 25 mcg PO DAILY acetaminophen 325 mg capsule 325 mg PO Q4H PRN tramadol 50 mg tablet 50 mg PO Q6H PRN topiramate 50 mg tablet 100 mg PO BID epinephrine 0.3 mg/0.3 mL auto-injector 0.3 mg IM ONCE Rx Instructions: as a single dose; may repeat once magnesium oxide 400 mg magnesium capsule 400 mg PO DAILY Mirena 21 mcg/24hr (up to 8 yrs) 52 mg intrauterine device 1 device intrauterine ONCE Rx Instructions: as a single dose omeprazole 20 mg capsule,delayed release(DR/EC) 20 mg PO DAILY Probiotic (B. coagulans) 10 billion cell capsule,delayed release(DR/EC) PO HPI General Date/Time Provider Initiated Documentation: 09/08/24 16:02 . Related Data Home Medications ?Medication ?Instructions ?Recorded ?Confirmed lactobacillus combination no.9 4 See Rx Instructions .Route 04/14/22 09/08/24 billion cell capsule (Adult 50 .COMPLEX PRN Plus Probiotic) loteprednol etabonate 0.5 % eye 1 drp ophthalmic (eye) QID 04/14/22 09/08/24 gel drops metoprolol tartrate 50 mg tablet 50 mg PO BID 04/14/22 09/08/24 propylene glycol 0.6 % eye drops 1 drp ophthalmic (eye) DAILY PRN 04/14/22 09/08/24 (Systane Complete) amlodipine 10 mg tablet 10 mg PO HS 05/05/22 09/08/24 diclofenac sodium 1 % topical gel 2 g topical QID 05/05/22 09/08/24 ketoconazole 2 % topical cream 1 applic topical DAILY 05/05/22 09/08/24 mupirocin 2 % topical ointment 1 applic topical BID 05/05/22 09/08/24 naloxone 4 mg/actuation nasal spray 4 mg intranasal Q2M PRN 08/27/22 09/08/24 aripiprazole 2 mg tablet (Abilify) 4 mg PO DAILY 02/23/23 09/08/24 venlafaxine 225 mg tablet,extended 225 mg PO DAILY 02/23/23 09/08/24 release 24 hr acetaminophen 325 mg capsule 325 mg PO Q4H PRN 02/25/23 09/08/24 cholecalciferol (vitamin D3) 25 25 mcg PO DAILY 02/25/23 09/08/24 mcg (1,000 unit) capsule famotidine 10 mg tablet 10 mg PO DAILY 02/25/23 09/08/24 lisinopril 10 mg tablet 10 mg PO DAILY 02/25/23 09/08/24 topiramate 50 mg tablet 100 mg PO BID 03/03/23 09/08/24 tramadol 50 mg tablet 50 mg PO Q6H PRN 03/03/23 09/08/24 levonorgestrel 21 mcg/24 hr (up to 1 device intrauterine ONCE #1 ea 07/27/23 09/08/24 8 years) 52 mg intrauterine device (Mirena) gabapentin 800 mg tablet 800 mg PO TID #270 tabs 01/12/24 09/08/24 rizatriptan 10 mg tablet See Rx Instructions PO .COMPLEX 01/17/24 09/08/24 #12 tabs atomoxetine 10 mg capsule 60 mg PO QAM 05/30/24 09/08/24 (Strattera) Bacillus coagulans 10 billion cell cell PO 08/01/24 08/09/24 capsule,delayed release (Probiotic (B. coagulans)) epinephrine 0.3 mg/0.3 mL 0.3 mg IM ONCE 08/01/24 09/08/24 injection, auto-injector levonorgestrel 21 mcg/24 hr (up to 1 device intrauterine ONCE 08/01/24 09/08/24 8 years) 52 mg intrauterine device (Mirena) magnesium oxide 400 mg PO DAILY 08/01/24 09/08/24 omeprazole 20 mg capsule,delayed 20 mg PO DAILY 08/01/24 09/08/24 release prochlorperazine maleate 5 mg See Rx Instructions PO TID PRN 08/09/24 09/08/24 tablet nausea and vomiting or headache #30 tabs Previous Rx's ?Medication ?Instructions ?Recorded levonorgestrel 21 mcg/24 hr (up to 1 device intrauterine ONCE #1 ea 07/27/23 8 years) 52 mg intrauterine device (Mirena) gabapentin 800 mg tablet 800 mg PO TID #270 tabs 01/12/24 rizatriptan 10 mg tablet See Rx Instructions PO .COMPLEX 01/17/24 #12 tabs prochlorperazine maleate 5 mg See Rx Instructions PO TID PRN 08/09/24 tablet nausea and vomiting or headache #30 tabs Allergies Allergy/AdvReac Type Severity Reaction Status Date / Time adhesive tape Allergy Severe Skin Rash Verified 09/08/24 15:59 corn Allergy Severe Anaphylaxis Verified 09/08/24 15:59 COVID-19 vacc, bv (Orig, Allergy Severe Swelling/Ed Unverified 09/08/24 15:59 Omicron BA.4/5) (Moderna) deangelo (From Moderna COVID Bival(6m up)(PF)) peanut Allergy Severe Anaphylaxis Verified 09/08/24 15:59 watermelon Allergy Severe Other (See Verified 09/08/24 15:59 Comment) wheat Allergy Severe Anaphylaxis Verified 09/08/24 15:59 rice Allergy Intermediate Skin Rash Unverified 09/08/24 15:59 Sulfa (Sulfonamide Allergy Mild vomiting Unverified 09/08/24 15:59 Antibiotics) latex Allergy Skin Rash Verified 09/08/24 15:59 bandaids Allergy Severe severe Uncoded 09/08/24 15:59 skin rash General Stated Complaint: PsychEval DELL: 2 Course Vital Signs Vital signs: Vital Signs Temperature 37.0 C 09/08/24 15:53 Pulse 75 09/08/24 15:53 Respiratory Rate 17 09/08/24 15:53 Blood Pressure 171/100 H 09/08/24 15:53 Pulse Oximetry 98 09/08/24 15:53 Temperature 36.4 C L 09/12/24 07:21 Temperature Source Tympanic 09/12/24 07:21 Pulse 70 09/12/24 07:21 Respiratory Rate 18 09/12/24 07:21 Blood Pressure 132/92 H 09/12/24 07:21 Blood Pressure Position Sitting 09/08/24 15:53 Pulse Oximetry 97 09/12/24 07:21 Oxygen Delivery Method Room Air 09/12/24 07:21 Oxygen Flow Rate 0 09/12/24 07:21 Pain Level 5 09/11/24 14:43 Lab/Test Results Lab/Test Results: Laboratory Tests Range/Units 09/08/24 09/08/24 17:20 18:01 WBC (4.4-10.8) 10^3/uL 8.96 RBC (3.93-5.22) 10^6/uL 4.66 Hgb (11.2-15.7) g/dL 13.7 Hct (36.0-46.0) % 41.9 MCV (80-95) fL 90 MCH (27.0-33.0) pg 29.4 MCHC (32.0-36.0) % 32.7 RDW (11.7-14.6) % 12.6 Plt Count (130-400) 10^3/uL 230 MPV (8.0-11.0) fL 8.5 Immature Gran % % 0.4 Neutrophils % % 61.6 Lymphocytes % % 30.1 Monocytes % % 5.7 Eosinophils % % 1.6 Basophils % % 0.6 Nucleated RBC % (0.0-0.3) % 0.0 Absolute Neutrophils (1.2-6.7) 10^3/uL 5.52 Absolute Lymphocytes (1.2-3.4) 10^3/uL 2.70 Absolute Monocytes (0.1-0.8) 10^3/uL 0.51 Absolute Eosinophils (0.0-0.7) 10^3/uL 0.14 Absolute Basophils (0.0-0.2) 10^3/uL 0.05 Sodium (136-145) mmol/L 141 Potassium (3.5-5.1) mmol/L 3.5 Chloride (98-107) mmol/L 107 Carbon Dioxide (21.0-32.0) mmol/L 27.8 Anion Gap (3-11) mmol/L 6.2 BUN (7-18) mg/dL 9 Creatinine (0.55-1.02) mg/dL 1.0 Est GFR (CKD-EPI 2020) (mL/min/1.73m2) 69.49 Glucose (74-106) mg/dL 80 Calcium (8.5-10.1) mg/dL 8.9 Total Bilirubin (0.2-1.0) mg/dL 0.3 AST (15-37) U/L 10 L ALT (14-59) U/L 23 Alkaline Phosphatase (46-116) U/L 77 Total Protein (6.4-8.2) g/dL 7.1 Albumin (3.4-5.0) g/dL 3.3 L Urine Color (Yellow) Yellow Urine Clarity (Clear) Clear Urine pH (5-8) 6.5 Ur Specific [place] (1.005-1.025) 1.020 Urine Protein (Neg-Trace) mg/dL Negative Urine Ketones (Negative) mg/dL Negative Urine Blood (Negative) Trace-lysed H Urine Nitrite (Negative) Negative Urine Bilirubin (Negative) Negative Urine Urobilinogen (Up to 0.2) mg/dL 0.2 Ur Leukocyte Esterase (Negative) Negative Urine RBC (0-2) HPF 0-2 Urine WBC (0-5) HPF 0-2 Ur Epithelial Cells (Negative) HPF Moderate Urine Crystals (Negative) HPF Negative Urine Bacteria (Negative) HPF Negative Urine Casts (Negative) LPF Negative Urine Mucus (Negative) Negative Ur Culture Indicated? No Urine Glucose (Negative) mg/dL Negative Salicylates (<2.8) mg/dL < 2.8 Urine Opiates Screen (Negative) Negative Urine Methadone Screen (Negative) Negative Acetaminophen (10-30) ug/mL < 2 Ur Barbiturates Screen (Negative) Negative Ur Tricyclics Screen (Negative) Negative Ur Amphetamines Screen (Negative) Negative U Benzodiazepines Scrn (Negative) Negative Urine Cocaine Screen (Negative) Negative Ur THC Screen (Negative) Positive A Ethyl Alcohol (<10) mg/dL < 3.0 POC- Test(urine) Negative Medical Decision Making The patient was observed over the arc of this shift without any significant problems. The patient did not require any interventions on my behalf. Quality:SDOH Health Related Social Needs: No Data to Display PFSH All Active Problems (Updated 09/12/24 @ 22:14 by Av Harris MD) Suicidal ideation (Acute) Depression (Chronic) Post concussion syndrome (Acute) Brain injury NEC-concussion (Acute) Left carpal tunnel syndrome (Acute) Carpal tunnel syndrome of right wrist (Acute) Encounter for insertion of mirena IUD (Acute) Cholelithiases (Acute) Abnormal perimenopausal bleeding (Acute) Instability of left shoulder joint (Acute) Tendinopathy of left biceps tendon (Acute) Chiari malformation type I (Acute) Hypertension (Chronic) GERD (gastroesophageal reflux disease) (Chronic) Obstructive sleep apnea (Chronic) Chronic migraine without aura (Acute) Anemia, iron deficiency (Acute) Anxiety and depression (Chronic) Degenerative disc disease, cervical (Acute) Degenerative disc disease, lumbar (Acute) Chronic pain syndrome (Chronic) Rajni-Danlos syndrome (Acute) Sessile serrated polyp of colon (Acute ~05/10/23) X1, 2 hyperplastic Radicular syndrome of right leg (Acute) Paresthesias (Acute) Idiopathic small fiber peripheral neuropathy (Acute) Dysphagia (Acute) Bilateral hip pain (Acute) Thoracic outlet syndrome (Acute) Chronic pain syndrome (Chronic) Hypertension (Chronic) Rajni-Danlos syndrome (Acute) Medical History Screen for colon cancer Essential hypertension Anxiety Degenerative disc disease, lumbar Degenerative disc disease, cervical Chronic low back pain without sciatica Incontinence in female Tobacco use Cervical radiculopathy Fatigue Pain, joint, ankle, left Chiari I malformation Major depression GERD (gastroesophageal reflux disease) Intractable chronic migraine without aura JOSE (obstructive sleep apnea) Surgical History History of laparoscopic cholecystectomy (~06/2023) Hx of colonoscopy (~04/2023) S/P hernia repair Family History Mother Hypertension Diabetes Heart disease Father Hyperlipidemia Social History Smoking/Tobacco Use Status: Former Tobacco Use Quit status: has quit before Smoking risk assessment performed?: Yes Alcohol Intake: former Drug use: Occasionally Substance use type: marijuana Household members: spouse and other Details: from [place] Share an apartment. Housing: apartment Number of Children: 2 Education Level: college Details: BA [employer]. 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
--- NOTE | 2024-09-13 07:15 | ED.PROG_ITS ---
Date of service: 09/13/24 Time of Service: 07:16 Medical Decision Making In brief, this is a 48-year-old female patient boarding in our emergency department voluntarily for suicidal ideation. Prior to my taking over their care, the patient was medically cleared, and has been resting comfortably. They have met with the social media specialist and we are awaiting final dispo. They have not required any additional medications for restraint or sedation. The patient was accepted to [place] for ongoing inpatient psychiatric care. Transferred from our department without incident. Zonia Nails MD Medical Records Medical records reviewed: Yes I reviewed the patient's medical records. Lab Data Lab results reviewed: Yes I reviewed the patient's lab results. Quality:SDWV Health Related Social Needs: No Data to Display Discharge Plan Discharge Details Chief Complaint: PsychEval Clinical Impression: Depression, Suicidal ideation Primary Care Provider: Parminder Rivera ED Provider: Zonia Nails Home Meds and New Rx's Prescriptions: No Action atomoxetine [Strattera] 10 mg capsule 60 mg PO QAM Rx Instructions: take 60 mg in the morning. Take 40mg in the afternoon. venlafaxine 225 mg tablet extended release 24hr 225 mg PO DAILY aripiprazole [Abilify] 2 mg tablet 4 mg PO DAILY ketorolac 30 mg/mL (1 mL) solution 30 mg IM ONCE Qty: 1 0RF gabapentin 800 mg tablet 800 mg PO TID Qty: 270 3RF rizatriptan 10 mg tablet See Rx Instructions PO .COMPLEX Qty: 12 11RF Rx Instructions: take 1 tab at onset of headache; if no relief may repeat 1 tab after at least 2 hrs; max = 2 tabs/24 hr PO prochlorperazine maleate 5 mg tablet See Rx Instructions PO TID PRN (Reason: nausea and vomiting or headache) Qty: 30 0RF Rx Instructions: 5-10mg orally three times a day PRN; naloxone 4 mg/actuation spray,non-aerosol 4 mg intranasal Q2M PRN Rx Instructions: spray 1 dose into ONE nostril; alternate nostrils w each dose until help arrives Mirena 21 mcg/24 hours (8 yrs) 52 mg intrauterine device 1 device intrauterine ONCE Qty: 1 0RF Rx Instructions: as a single dose Systane Complete 0.6 % drops 1 drp ophthalmic (eye) DAILY PRN loteprednol etabonate 0.5 % drops,gel 1 drp ophthalmic (eye) QID Rx Instructions: start 24 hours after surgery metoprolol tartrate 50 mg tablet 50 mg PO BID Adult 50 Plus Probiotic 4 billion cell capsule See Rx Instructions .ROUTE .COMPLEX PRN Rx Instructions: as needed amlodipine 10 mg tablet 10 mg PO HS diclofenac sodium 1 % gel 2 g topical QID Rx Instructions: apply to single elbow, wrist or hand; for hand includes palm/fingers/back of hand mupirocin 2 % ointment 1 applic topical BID ketoconazole 2 % cream 1 applic topical DAILY famotidine 10 mg tablet 10 mg PO DAILY lisinopril 10 mg tablet 10 mg PO DAILY cholecalciferol (vitamin D3) 25 mcg (1,000 unit) capsule 25 mcg PO DAILY acetaminophen 325 mg capsule 325 mg PO Q4H PRN tramadol 50 mg tablet 50 mg PO Q6H PRN topiramate 50 mg tablet 100 mg PO BID epinephrine 0.3 mg/0.3 mL auto-injector 0.3 mg IM ONCE Rx Instructions: as a single dose; may repeat once magnesium oxide 400 mg magnesium capsule 400 mg PO DAILY Mirena 21 mcg/24hr (up to 8 yrs) 52 mg intrauterine device 1 device intrauterine ONCE Rx Instructions: as a single dose omeprazole 20 mg capsule,delayed release(DR/EC) 20 mg PO DAILY Probiotic (B. coagulans) 10 billion cell capsule,delayed release(DR/EC) PO
[2024-09-13] MEDS: Omeprazole 20 MG CAPCR PO (08:43)
[2024-09-13] MEDS: Topiramate 50 MG TAB PO (08:43)
[2024-09-13] MEDS: Venlafaxine 75 MG CAPCR 225 MG PO (08:43)
[2024-09-13] MEDS: Gabapentin 400 MG CAP 800 MG PO (08:43)
[2024-09-13] MEDS: Lisinopril 10 MG TAB PO (08:43)
[2024-09-13] MEDS: ARIPiprazole 2 MG TAB 4 MG PO (08:43)
[2024-09-13] MEDS: Metoprolol 50 MG TAB PO (08:44)
[2024-09-13] MEDS: Famotidine 20 MG TAB 10 MG PO (08:44)
[2024-09-13 08:52] VITALS: BP 141/100; PULSE 80; TEMP 37.2; O2SAT 100
[2024-09-13] MEDS: traMADol 50 MG TAB PO (08:59)
--- NOTE | 2024-09-13 10:25 | PDOC.CMSAFE ---
Date of service: 09/13/24 Time of Service: 10:25 Care Management Safety Plan Status Status: Voluntary Reason for Wait Reason for Wait: Inpatient Admission Safety Plan Safety Plan: VOLUNTARY FOR INPATIENT PSYCHIATRIC STABILIZATION.? Patient is appropriate in all interactions since arriving at [facility]; Pt has demonstrated appropriate coping and communication skills, has articulated her needs and concerns and is fully engaged during staff interactions. Safety plan has been established with patient, and care team, to adhere to patient goals, identify restrictions based on behavioral status, address nutrition, and determine allowed personal belongings, tools for hygiene and personal care. Determine level of activity including ambulation, level of supervision, visitors, and determine privileges based on behaviors and level of engagement by pt. VOLUNTARY SAFETY PLAN: 1. Will remain on suicide precautions, in paper clothes 2. 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 3. May have paper cups, plates, finger foods as well as a cardboard spoon with which to eat meals. 4. Follow [facility] Management of the Admitted Behavioral Health Patient policy. 5. Shower available in Zone B without restriction. 6. Personal belongings-soft items permitted at RN discretion. 7. Visitors- may visit at RN discretion. No other visitors allowed at this time. 8. Activities: soft cart items, hospital tablets (Netflix/Florence+/music) approved per RN discretion. 9.? Bathroom available in Zone B without restriction. 10. Phone: limited to [facility] cordless phone at RN discretion. Due to VOLUNTARY status, if patient wishes to leave [facility], staff will contact [facility] Crisis Screener ([phone]) and Faculty Head ([phone]) as soon as possible. In the event of elopement, notify [facility] Police ([phone]).
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
--- NOTE | 2024-09-13 12:43 | CMPROGNOTE_ITS ---
Date of service: 09/13/24 Time of Service: 12:43 Care Management Progress Note Progress Note Text Progress Note Text: CM huddled with staff regarding Viktoriya's plan of care. Per RN, she has been pleasant and appropriate. Per [facility], she has been accepted at [place]; transport was arranged by ED staff, and she transferred to [place] this morning for inpatient psychiatric treatment. Social Determinants of Health Screening Will the Patient Participate in the Screening?: Declined to provide
== END 2024-09-13 11:55 ==
PROVIDERS: Physician Assistant; Emergency Provider Emergency Medicine; PCP Family Medicine
DX: R45.851 Suicidal ideations (principal); F32.2 Major depressive disorder, single episode, severe without psychotic features; F41.1 Generalized anxiety disorder; F43.10 Post-traumatic stress disorder, unspecified; R51.9 Headache, unspecified; I10 Essential (primary) hypertension; Q79.60 Ehlers-Danlos syndrome, unspecified; Z87.891 Personal history of nicotine dependence
CPT/HCPCS: 00123; 80053; 80307; 81025; 99285; 80320; 80329; 81003; 81015; 85025

== ENCOUNTER 2024-09-27 06:16 | Day surgery (SDC) | payer MEDICAID, SELFPAY ==
[2024-09-27 06:30] VITALS: BP 131/94; PULSE 78; RESP 18; TEMP 36.5; O2SAT 98
--- NOTE | 2024-09-27 06:41 | W.ANESPRE ---
General Info Date of Service Date Performed: 09/27/24 Height: 5 ft 6 in Weight: 117.4 kg Body Mass Index (BMI): 41.8 Surgical Procedure: Operation Date: 09/27/24 07:40 Proposed Procedure Side Surgeon p Wrist ECTR Right Jeevan Arguelles MD Meds Allergies and Home Medications Allergies Allergy/AdvReac Type Severity Reaction Status Date / Time adhesive tape Allergy Severe Skin Rash Verified 09/27/24 06:36 corn Allergy Severe Anaphylaxis Verified 09/27/24 06:36 COVID-19 vacc, bv (Orig, Allergy Severe Swelling/Ed Verified 09/27/24 06:36 Omicron BA.4/5) (Moderna) deangelo (From Moderna COVID Bival(6m up)(PF)) peanut Allergy Severe Anaphylaxis Verified 09/27/24 06:36 watermelon Allergy Severe Other (See Verified 09/27/24 06:36 Comment) wheat Allergy Severe Anaphylaxis Verified 09/27/24 06:36 rice Allergy Intermediate Skin Rash Verified 09/27/24 06:36 Sulfa (Sulfonamide Allergy Mild vomiting Verified 09/27/24 06:36 Antibiotics) latex Allergy Skin Rash Verified 09/27/24 06:36 bandaids Allergy Severe severe Uncoded 09/27/24 06:36 skin rash Home Medication ?Medication ?Instructions ?Recorded lactobacillus combination no.9 4 See Rx Instructions .Route 04/14/22 billion cell capsule (Adult 50 .COMPLEX PRN Plus Probiotic) metoprolol tartrate 50 mg tablet 50 mg PO BID 04/14/22 propylene glycol 0.6 % eye drops 1 drp ophthalmic (eye) DAILY PRN 04/14/22 (Systane Complete) amlodipine 10 mg tablet 10 mg PO HS 05/05/22 diclofenac sodium 1 % topical gel 2 g topical QID 05/05/22 ketoconazole 2 % topical cream 1 applic topical DAILY 05/05/22 mupirocin 2 % topical ointment 1 applic topical BID 05/05/22 naloxone 4 mg/actuation nasal spray 4 mg intranasal Q2M PRN 08/27/22 aripiprazole 2 mg tablet (Abilify) 4 mg PO DAILY 02/23/23 venlafaxine 225 mg tablet,extended 225 mg PO DAILY 02/23/23 release 24 hr acetaminophen 325 mg capsule 325 mg PO Q4H PRN 02/25/23 cholecalciferol (vitamin D3) 25 25 mcg PO DAILY 02/25/23 mcg (1,000 unit) capsule famotidine 10 mg tablet 10 mg PO DAILY 02/25/23 lisinopril 10 mg tablet 10 mg PO DAILY 02/25/23 topiramate 50 mg tablet 100 mg PO BID 03/03/23 tramadol 50 mg tablet 50 mg PO Q6H PRN 03/03/23 levonorgestrel 21 mcg/24 hr (up to 1 device intrauterine ONCE #1 ea 07/27/23 8 years) 52 mg intrauterine device (Mirena) gabapentin 800 mg tablet 800 mg PO TID #270 tabs 01/12/24 rizatriptan 10 mg tablet See Rx Instructions PO .COMPLEX 01/17/24 #12 tabs atomoxetine 10 mg capsule 60 mg PO QAM 05/30/24 (Strattera) Bacillus coagulans 10 billion cell 10 cell PO DAILY 08/01/24 capsule,delayed release (Probiotic (B. coagulans)) epinephrine 0.3 mg/0.3 mL 0.3 mg IM ONCE 08/01/24 injection, auto-injector magnesium oxide 400 mg PO DAILY 08/01/24 omeprazole 20 mg capsule,delayed 20 mg PO DAILY 08/01/24 release prazosin 1 mg capsule 2 mg PO HS PTSD nightmares 09/26/24 Current Visit Medications: Current Medications Generic Name Dose Route Start Last Admin Trade Name Freq PRN Reason Stop Dose Admin Ringer's Solution 1,000 mls @ 80 mls/hr 09/27/24 06:00 IV 10/21/24 23:59 INFUSION BELINDA Cefazolin Sodium/Dextrose 2 gm in 50 mls @ 100 mls/hr 09/27/24 06:00 Ancef Duplex IVPB 10/21/24 23:59 PREOP BELINDA IV Miscellaneous Supplies 1 each 09/27/24 06:00 Iv Access IV 10/21/24 23:59 DIRECTED BELINDA Sodium Chloride 0 ml 09/27/24 06:00 Normal Saline Flush 10 Ml Syr IV 10/21/24 23:59 PRN PRN Sodium Chloride 0 ml 09/27/24 06:00 Normal Saline 10 Ml Vial IJ 10/21/24 23:59 DIRECTED PRN Sterile Water 0 ml 09/27/24 06:00 Water,Injection,Sterile 10 Ml Vial IJ 10/21/24 23:59 DIRECTED PRN [facility] Active Problems Active Problems: Problem Status Onset Code Suicidal ideation Acute R45.851 Depression Chronic F32.A Post concussion syndrome Acute F07.81 Brain injury NEC-concussion Acute S06.89AA Left carpal tunnel syndrome Acute G56.02 Carpal tunnel syndrome of right wrist Acute G56.01 Encounter for insertion of mirena IUD Acute Z30.430 Cholelithiases Acute K80.20 Abnormal perimenopausal bleeding Acute N92.4 Instability of left shoulder joint Acute M25.312 Tendinopathy of left biceps tendon Acute M67.922 Chiari malformation type I Acute G93.5 Hypertension Chronic I10 GERD (gastroesophageal reflux disease) Chronic K21.9 Obstructive sleep apnea Chronic G47.33 Chronic migraine without aura Acute G43.709 Anemia, iron deficiency Acute D50.9 Anxiety and depression Chronic F41.9, F32.A Degenerative disc disease, cervical Acute M50.30 Degenerative disc disease, lumbar Acute M51.36 Chronic pain syndrome Chronic G89.4 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 Sessile serrated polyp of colon Acute ~18/23 D12.6 Radicular syndrome of right leg Acute M54.10 Paresthesias Acute R20.2 Idiopathic small fiber peripheral neuropathy Acute G60.9 Dysphagia Acute R13.10 Bilateral hip pain Acute M25.551, M25.552 Thoracic outlet syndrome Acute G54.0 Chronic pain syndrome Chronic G89.4 Hypertension Chronic I10 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 Surgical History Surgical History History of laparoscopic cholecystectomy (~06/2023) Hx of colonoscopy (~04/2023) S/P hernia repair Tobacco Smoking/Tobacco Use Status: Former Tobacco Use Passive smoking exposure: No Alcohol Alcohol Intake: former Substance Use Substance use: Occasionally Substance use type: marijuana Prental History History 4 Para 2 Hx # Term Pregnancies 2 Multiple births Hx # Pregnancies Ectopic pregnancies AB induced Hx Number of Living Children 2 AB spontaneous 2 Vital Signs and Lab Results Vital Signs Most Recent Vital Signs in EMR: Most Recent Vital Signs Temp Pulse Resp BP Pulse Ox 36.5 C 78 18 131/94 H 98 09/27/24 06:30 09/27/24 06:30 09/27/24 06:30 09/27/24 06:30 09/27/24 06:30 Lab Results Blood Type / Crossmatch: No Data to Display Complete Blood Count: White Blood Count 8.96 10^3/uL (4.4-10.8) 09/08/24 18:01 Red Blood Count 4.66 10^6/uL (3.93-5.22) 09/08/24 18: Hemoglobin 13.7 g/dL (11.2-15.7) 09/08/24 18: Hematocrit 41.9 % (36.0-46.0) 09/08/24 18: Platelet Count 230 10^3/uL (130-400) 09/08/24 18:01 Complete Metabolic Panel: Sodium 141 mmol/L (136-145) 09/08/24 18:01 Potassium 3.5 mmol/L (3.5-5.1) 09/08/24 18: Chloride 107 mmol/L (98-107) 09/08/24 18: Carbon Dioxide 27.8 mmol/L (21.0-32.0) 09/08/24 18:01 BUN 9 mg/dL (7-18) 09/08/24 18: Creatinine 1.0 mg/dL (0.55-1.02) 09/08/24 18:01 Est GFR (CKD-EPI 2020) 69.49 (mL/min/1.73m2) 09/08/24 18:01 Calcium 8.9 mg/dL (8.5-10.1) 09/08/24 18:01 Albumin 3.3 g/dL (3.4-5.0) L 09/08/24 18: Glucose 80 mg/dL (74-106) 09/08/24 18:01 Liver Function Panel: Alanine Aminotransferase (ALT/SGPT) 23 U/L (14-59) 09/08/24 18:01 Aspartate Amino Transf (AST/SGOT) 10 U/L (15-37) L 09/08/24 18:01 Coagulation Panel: No Data to Display Cardiac Panel: No Data to Display Arterial Blood Gas: No Data to Display Venous Blood Gas: No Data to Display Pancreas Panel: No Data to Display Thyroid Panel: No Data to Display Infectious Disease: No Data to Display Blood Cultures: No Data to Display Toxicology Panel: Ethyl Alcohol Level < 3.0 mg/dL (<10) 09/08/24 18:01 Urine Amphetamines Screen Negative (Negative) 09/08/24 17:20 Urine Benzodiazepines Screen Negative (Negative) 09/08/24 17:20 Urine Barbiturates Screen Negative (Negative) 09/08/24 17:20 Urine Cocaine Screen Negative (Negative) 09/08/24 17:20 Urine Methadone Screen Negative (Negative) 09/08/24 17:20 Urine Opiates Screen Negative (Negative) 09/08/24 17:20 Ur Tricyclic Antidepressants Screen Negative (Negative) 09/08/24 17:20 Ur Tetrahydrocannabinol (THC) Scrn Positive (Negative) A 09/08/24 17:20 Panel: No Data to Display Imaging and Studies Imaging and Studies Study information below may be from another EMR and interpreted by another provider. Please see original notes in EMR for more complete details. EKG Summary: 08/13: sinus. EKG PATIENT NAME: Viktoriya Van UNIT #: [id number] ORDERING PROVIDER: Dipak Espinoza M.D. PRIMARY CARE PROVIDER: RITO LOUIE MD DATE/TIME OF SERVICE: 06/24/23 1319 : 1975 PERFORMING LOCATION: [place] APPROVED REPORT Exam: Resting ECG Reason for Exam: chest pain Patient Location: E HR:80 bpm ECG Measurements Heart Rate 80 AXIS NH 162 P 29 QRSd 109 QRS -16 QT 415 T27 QTc 479 Conclusion Sinus rhythm...normal P axis, V-rate 60- 99 Low voltage, precordial leads...precordial leads <1.0mV <Electronically signed by DIPAK ESPINOZA MD in [place]> E-Sign Date: 06/24/23 E-Sign Time: 1441 ADDENDUM APPROVED REPORT Exam: Resting ECG Reason for Exam: chest pain Patient Location: E HR:80 bpm ECG Measurements Heart Rate 80 AXIS NH 162 P 29 QRSd 109 QRS -16 QT 415 T27 QTc 479 Conclusion Sinus rhythm...normal P axis, V-rate 60- 99 Low voltage, precordial leads...precordial leads <1.0mV I have reviewed and I agree with the emergency room physician's ECG interpretation. Electronically signed by: <Electronically signed by Palomo Pete M.D. in [place]> 06/25/23 0825 Cosigned by: Stress Test Summary: 01/12: 7 mets, no ischemia noted. STRESS TEST PATIENT NAME: Marcela Van UNIT #: [id number] ORDERING PROVIDER: Ellyn Mishra NP PRIMARY CARE PROVIDER: UNKNOWN,UNKNOWN DATE/TIME OF SERVICE: 01/06/22 ADMITTING PROVIDER: SAMARIA JERONIMO MD : 1975 APPROVED REPORT Exam: Exercise Treadmill Patient Location: Out-Patient Room/Bed: Ordering Provider:ELLYN MISHRA, Contact Number: [phone] BMI: 38.68 Baseline Rhythm: Sinus Rhythm Comment: Resting ST abnormality lead III Indications: Angina Medical History Medical History: Hypertension, obesity, mild asthma, current tobacco use, chest pain Cardiac Medications: Metoprolol succinate, amlodipine, lisinopril, gabapentin, meloxicam, venlafaxine Allergies: Sulfa antibiotics Cardiac Risk Factors: Hypertension, obesity, asthma, smoker (current), family hx Previous Cardiac Procedures: None Pretest Chest Pain Characteristics: None Exercise History: Sedentary Physical Disabilities: None Lung Sounds: Clear to auscultation Heart Sounds: Regular Stress Test Details Test: Exercise stress testing was performed using a Antonio protocol. Rest Stress HR Resting HR Supine: 75 bpmMax Heart Rate (APMHR): 174 bpm Resting HR Standin bpmTarget HR (85% APMHR): 147 bpm Max HR Achieved: 140 bpm % of APMHR: 80 Recovery HR: 79 bpm HR response to stress: Normal HR response to stress Comment: Nondiagnostic- THR not achieved. Metoprolol succinate last dose was yesterday PM. BP Resting BP Supine: 124/88 mmHg Resting BP Standin/90 mmHg Max BP: 176/82 mmHg Recovery BP: 114/78 mmHg BP response to stress: Normal blood pressure response to stress. ECG Resting ECG: Sinus Rhythm Ectopy: None Comment: Resting ST abnormality lead III Stress ECG: Sinus Tachycardia ST Change: Nondiagnostic low heart rate, No significant ST segment changes noted Arrhythmia: None Recovery ECG: Sinus Rhythm Recovery ST Change: Nondiagnostic low heart rate, No significant ST segment changes noted Recovery Arrhythmia: None Clinical Reason for Termination: Dyspnea Stress Symptoms: General Fatigue, Dyspnea Exercise duration: 5 min01 sec Highest Stage Reached: Stage 2: 2.5 mph at 12% grade. Exercise capacity: 7.05 METs Angina Score: None Britton Treadmill Score: 4.8 Rate Pressure Product: 15523 Stress ECG Conclusion 1. Resting electrocardiogram was within normal limits 2. Patient exercised on the Antonio protocol completed a workload of 7.05 METS, stopping due to fatigue and dyspnea. No chest pain was described 3. Normal hemodynamic response to exercise. Peak heart rate achieved was 80% of predicted for age 4. At that level of heart rate and workload, there was no electrocardiographic evidence of myocardial ischemia 5. There were no dysrhythmias Britton Treadmill Score is 4.8 which is Moderate risk. Stress Test Summary STAGETime (mins)Speed (mph)Grade (%)[id number]/88 [id number]/9098% [id number]/8296%4.5 [id number]%Severe SOB7 1 min [id number]/8298%Moderate SOB 3 min [id number]/8098%Mild SOB 6 min [id number]/7898%SOB resolved Pt reported sudden severe SOB during second stage of Antonio protocol and requested termination of test. SOB resolved by minute 4 of recovery. Dictated by: SAMARIA JERONIMO MD Dictated:: 01/06/22 0947 <Electronically signed by Samaria Jeronimo M.D. in [place]> 01/06/22 1009 Transcribed Date: Transcribed Time: By: ANNA MARIE This is privileged, confidential information, intended only for the provider named. Any use or distribution by any person other than this provider is strictly prohibited. If you receive this report in error, please notify us immediately at 80 Other Study Summary:: c spine MRI, MRI brain, L spine MRI, abd MRI reviewed and results in charts Anesthesia Assessment and Plan Anesthesia History Personal History: No History of Anesthesia Complications Family History: Other Exercise Tolerance Exercise Tolerance: Metabolic Equivalents>4 Cardiac & Pulmonary Exam Cardiac Exam: Normal S1/S2 Heart Sounds Pulmonary Exam: Clear Bilateral Breath Sounds Implantable Cardiac Device Does patient have a Pacemaker or an ICD?: No Airway Exam Known Difficult Airway: No Mallampati Class: 3 Mouth Opening: Narrow (< 3cm) Thyromental Distance: Greater than 3 cm Neck Range of Motion: Known Cervical Instability or radiculopathy Neck Circumference: Normal Teeth Condition: Normal Dentition ASA Classification ASA Score: ASA 3 Emergency Case?: No NPO Status NPO Status: NPO Clears >2 hours, Solids >8 hours Status Status: Negative HCG Anesthesia Plan Resuscitation Status: Full Code Anesthesia Technique: General Anesthesia Airway Planned: Natural Airway Monitors Used: Standard Monitors Preoperative Comments:: 48 yo female for ECTR. Sig PMHx: HTN (amlodipine, lisinopril, metoprolol. does not routinely check BP at home), JOSE, GERD (Has been off omeprazole and doing well), thoracic outlet syndrome, cindy-danlos, neuropathy, depression/anxiety/ADHD (atomoxetine), migraine, chiari type I. former smoker. ECG: sinus ECHO: 7 METS, ECG without sings of ischemia. Previous Anes: - lap meena, easy mask, glide 3 grade 2b. Tongue neuropraxia - resolved after a month of so. - colo, prop, natural airway, no issues.
[2024-09-27 06:52] VITALS: BMI 41.8
[2024-09-27] MEDS: Lactated Ringers 1,000 ML 80 ML IV (06:55)
--- NOTE | 2024-09-27 07:09 | PDOC.DSDIS_ITS ---
Date of service: 09/27/24 Discharge Plan Disposition Patient Disposition: Home Condition: Good Discharge Details Reason For Visit: R ECTR Attending Provider: Jeevan Arguelles Primary Care Provider: Parminder Rivera Home Meds and New Rx's Prescriptions: New acetaminophen 500 mg tablet 1,000 mg PO TID Qty: 90 0RF ibuprofen 600 mg tablet 600 mg PO TID PRN (Reason: pain) Qty: 90 0RF Continued atomoxetine [Strattera] 10 mg capsule 60 mg PO QAM Rx Instructions: take 60 mg in the morning. Take 40mg in the afternoon. venlafaxine 225 mg tablet extended release 24hr 225 mg PO DAILY aripiprazole [Abilify] 2 mg tablet 4 mg PO DAILY gabapentin 800 mg tablet 800 mg PO TID Qty: 270 3RF rizatriptan 10 mg tablet See Rx Instructions PO .COMPLEX Qty: 12 11RF Rx Instructions: take 1 tab at onset of headache; if no relief may repeat 1 tab after at least 2 hrs; max = 2 tabs/24 hr PO naloxone 4 mg/actuation spray,non-aerosol 4 mg intranasal Q2M PRN Rx Instructions: spray 1 dose into ONE nostril; alternate nostrils w each dose until help arrives Mirena 21 mcg/24 hours (8 yrs) 52 mg intrauterine device 1 device intrauterine ONCE Qty: 1 0RF Patient Comments: in place Rx Instructions: as a single dose Systane Complete 0.6 % drops 1 drp ophthalmic (eye) DAILY PRN metoprolol tartrate 50 mg tablet 50 mg PO BID Adult 50 Plus Probiotic 4 billion cell capsule See Rx Instructions .ROUTE .COMPLEX PRN Rx Instructions: as needed amlodipine 10 mg tablet 10 mg PO HS diclofenac sodium 1 % gel 2 g topical QID Rx Instructions: apply to single elbow, wrist or hand; for hand includes palm/fingers/back of hand mupirocin 2 % ointment 1 applic topical BID ketoconazole 2 % cream 1 applic topical DAILY famotidine 10 mg tablet 10 mg PO DAILY lisinopril 10 mg tablet 10 mg PO DAILY cholecalciferol (vitamin D3) 25 mcg (1,000 unit) capsule 25 mcg PO DAILY tramadol 50 mg tablet 50 mg PO Q6H PRN topiramate 50 mg tablet 100 mg PO BID epinephrine 0.3 mg/0.3 mL auto-injector 0.3 mg IM ONCE Rx Instructions: as a single dose; may repeat once magnesium oxide 400 mg magnesium capsule 400 mg PO DAILY omeprazole 20 mg capsule,delayed release(DR/EC) 20 mg PO DAILY Probiotic (B. coagulans) 10 billion cell capsule,delayed release(DR/EC) 10 cell PO DAILY prazosin 1 mg capsule 2 mg PO HS Discontinued acetaminophen 325 mg capsule 325 mg PO Q4H PRN Discharge Instructions Stand Alone Forms: [facility] [place] Tunnel Release Referrals: Jeevan Arguelles MD [ [facility] STAFF PHYSICIAN] - Activity:: Activity as Tolerated Remove Dressings/Wound Care:: 48 hours Shower/Bathe:: 48 hours Diet:: As Tolerated Discharge Orders Discharge Orders: Discharge Order (Routine); Ordered 09/27/24 Ordered By: Erik Gardner DS: Diagnosis Discharge Diagnosis (1) Carpal tunnel syndrome of right wrist: Status: Acute
--- NOTE | 2024-09-27 07:24 | HPE_ITS ---
Assessment and Plan Assessment and plan (1) Carpal tunnel syndrome of right wrist: Status: Acute Assessment and plan: Viktoriya is a 48-year-old [id number] female who is here today for her right carpal tunnel release. She has failed nonoperative options. Once again I reviewed the carpal tunnel surgery with her. I discussed the risk to include bleeding, infection, pain, stiffness, damage to nerves, recurrent or continued numbness, need for repeat procedures. Despite these risk, she elects to proceed. History of Present Illness History of Present Illness Chief Complaint: Right Carpal Tunnel Syndrome Narrative: Viktoriya is a 48-year-old female has carpal tunnel syndrome about the right side. She has failed a nonoperative options and is here today for carpal tunnel release. No new sick contacts. No chest pain or shortness of breath. She does struggle with some depression and has been seen for this relatively routinely, most recently few weeks ago in the emergency department where she was observed and states that she has improved. She currently reports no significant concerns about her depression or suicidal ideations. Review of Systems All systems reviewed & are unremarkable except as noted in HPI and below PFSH All Active Problems Suicidal ideation (Acute) Depression (Chronic) Post concussion syndrome (Acute) Brain injury NEC-concussion (Acute) Left carpal tunnel syndrome (Acute) Carpal tunnel syndrome of right wrist (Acute) S/P ECTR: 09/27/2024 Encounter for insertion of mirena IUD (Acute) Cholelithiases (Acute) Abnormal perimenopausal bleeding (Acute) Instability of left shoulder joint (Acute) Tendinopathy of left biceps tendon (Acute) Chiari malformation type I (Acute) Hypertension (Chronic) GERD (gastroesophageal reflux disease) (Chronic) Obstructive sleep apnea (Chronic) Chronic migraine without aura (Acute) Anemia, iron deficiency (Acute) Anxiety and depression (Chronic) Degenerative disc disease, cervical (Acute) Degenerative disc disease, lumbar (Acute) Chronic pain syndrome (Chronic) Rajni-Danlos syndrome (Acute) Sessile serrated polyp of colon (Acute ~05/10/23) X1, 2 hyperplastic Radicular syndrome of right leg (Acute) Paresthesias (Acute) Idiopathic small fiber peripheral neuropathy (Acute) Dysphagia (Acute) Bilateral hip pain (Acute) Thoracic outlet syndrome (Acute) Chronic pain syndrome (Chronic) Hypertension (Chronic) Rajni-Danlos syndrome (Acute) Medical History Inappropriate sinus tachycardia Screen for colon cancer Essential hypertension Anxiety Degenerative disc disease, lumbar Degenerative disc disease, cervical Chronic low back pain without sciatica Incontinence in female Tobacco use Cervical radiculopathy Fatigue Pain, joint, ankle, left Chiari I malformation Major depression GERD (gastroesophageal reflux disease) Intractable chronic migraine without aura JOSE (obstructive sleep apnea) Surgical History History of laparoscopic cholecystectomy (~06/2023) Hx of colonoscopy (~04/2023) S/P hernia repair Family History Mother Hypertension Diabetes Heart disease Father Hyperlipidemia Social History Smoking/Tobacco Use Status: Former Tobacco Use Quit Date: 01/22/24 Quit status: has quit before Smoking risk assessment performed?: Yes Alcohol Intake: former Drug use: Occasionally Substance use type: marijuana Details: marijuana: edibles, t-3, 5 mg Household members: spouse and other Details: from [place] Share an apartment. Housing: apartment Number of Children: 2 Education Level: college Details: [employer]. 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 states that she is in a good head space to proceed with procedure in regards to recent ER visit. History History 4 Para 2 Hx # Term Pregnancies 2 Multiple births Hx # Pregnancies Ectopic pregnancies AB induced Hx Number of Living Children 2 AB spontaneous 2 Meds Allergies and Home Medications Allergies Allergy/AdvReac Type Severity Reaction Status Date / Time adhesive tape Allergy Severe Skin Rash Verified 09/27/24 06:36 corn Allergy Severe Anaphylaxis Verified 09/27/24 06:36 COVID-19 vacc, bv (Orig, Allergy Severe Swelling/Ed Verified 09/27/24 06:36 Omicron BA.4/5) (Moderna) deangelo (From [facility] COVTX Bival(6m up)(PF)) peanut Allergy Severe Anaphylaxis Verified 09/27/24 06:36 watermelon Allergy Severe Other (See Verified 09/27/24 06:36 Comment) wheat Allergy Severe Anaphylaxis Verified 09/27/24 06:36 rice Allergy Intermediate Skin Rash Verified 09/27/24 06:36 Sulfa (Sulfonamide Allergy Mild vomiting Verified 09/27/24 06:36 Antibiotics) latex Allergy Skin Rash Verified 09/27/24 06:36 bandaids Allergy Severe severe Uncoded 09/27/24 06:36 skin rash Home Medications ?Medication ?Instructions ?Recorded ?Confirmed ?Type lactobacillus combination no.9 4 See Rx Instructions .Route 04/14/22 09/27/24 History billion cell capsule (Adult 50 .COMPLEX PRN Plus Probiotic) metoprolol tartrate 50 mg tablet 50 mg PO BID 04/14/22 09/27/24 History propylene glycol 0.6 % eye drops 1 drp ophthalmic (eye) DAILY PRN 04/14/22 09/27/24 History (Systane Complete) amlodipine 10 mg tablet 10 mg PO HS 05/05/22 09/26/24 History diclofenac sodium 1 % topical gel 2 g topical QID 05/05/22 09/27/24 History ketoconazole 2 % topical cream 1 applic topical DAILY 05/05/22 09/27/24 History mupirocin 2 % topical ointment 1 applic topical BID 05/05/22 09/27/24 History naloxone 4 mg/actuation nasal spray 4 mg intranasal Q2M PRN 08/27/22 09/27/24 History aripiprazole 2 mg tablet (Abilify) 4 mg PO DAILY 02/23/23 09/27/24 History venlafaxine 225 mg tablet,extended 225 mg PO DAILY 02/23/23 09/27/24 History release 24 hr cholecalciferol (vitamin D3) 25 25 mcg PO DAILY 02/25/23 09/27/24 History mcg (1,000 unit) capsule famotidine 10 mg tablet 10 mg PO DAILY 02/25/23 09/27/24 History lisinopril 10 mg tablet 10 mg PO DAILY 02/25/23 09/27/24 History topiramate 50 mg tablet 100 mg PO BID 03/03/23 09/27/24 History tramadol 50 mg tablet 50 mg PO Q6H PRN 03/03/23 09/27/24 History levonorgestrel 21 mcg/24 hr (up to 1 device intrauterine ONCE #1 ea 07/27/23 09/27/24 Rx 8 years) 52 mg intrauterine device (Mirena) gabapentin 800 mg tablet 800 mg PO TID #270 tabs 01/12/24 09/27/24 Rx rizatriptan 10 mg tablet See Rx Instructions PO .COMPLEX 01/17/24 09/27/24 Rx #12 tabs atomoxetine 10 mg capsule 60 mg PO QAM 05/30/24 09/27/24 History (Strattera) Bacillus coagulans 10 billion cell 10 cell PO DAILY 08/01/24 09/27/24 History capsule,delayed release (Probiotic (B. coagulans)) epinephrine 0.3 mg/0.3 mL 0.3 mg IM ONCE 08/01/24 09/27/24 History injection, auto-injector magnesium oxide 400 mg PO DAILY 08/01/24 09/27/24 History omeprazole 20 mg capsule,delayed 20 mg PO DAILY 08/01/24 09/27/24 History release prazosin 1 mg capsule 2 mg PO HS PTSD nightmares 09/26/24 09/27/24 History acetaminophen 500 mg tablet 1,000 mg (2 x 500 mg) PO TID #90 09/27/24 Rx tabs ibuprofen 600 mg tablet 600 mg PO TID PRN pain #90 tabs 09/27/24 Rx Exam Const General: cooperative, healthy appearing, comfortable and no acute distress Resp Effort & Inspection: normal respiratory effort Auscultation: clear to auscultation bilaterally Cardio Rate: regular rate Rhythm: regular rhythm Results Last Vital Signs Temp 36.5 C 09/27/24 06:30 Pulse 78 09/27/24 06:30 Resp 18 09/27/24 06:30 BP 131/94 H 09/27/24 06:30 Pulse Ox 98 09/27/24 06:30
--- NOTE | 2024-09-27 07:29 | ROE_ITS ---
Operative Note Operative Note PRE-OP DIAGNOSIS: Right Carpal Tunnel Syndrome POST-OP DIAGNOSIS: same PROCEDURE: Right Endoscopic Carpal Tunnel Release SURGEON: Jeevan Arguelles ANESTHESIA TYPE: General:No Airway Refer to Anesthesia Record ESTIMATED BLOOD LOSS: 0 PATHOLOGY: none sent TOURNIQUET TIME: 4 COMPLICATIONS: None Patient was transported to: same day Patient's condition: stable Indications: I have seen Viktoriya in clinic for symptoms of carpal tunnel syndrome. The numbness, tingling, and pain limited function. Clinical exam findings with nerve conduction tests confirmed the diagnosis of carpal tunnel syndrome. Nonoperative measures such as bracing, time, activity modifications had been tried but disability and pain persisted. I discussed carpal tunnel release with the patient. I reviewed the risks of the procedure to include, but not limited to, bleeding, infection, pain, stiffness, incomplete release, damage to nerves or vessels, persistent numbness, recurrence. Despite these risks, the patient elected to proceed. Findings: There was tightened carpal tunnel. This was dilated and released successfully with the endoscopic with increased space within the tunnel. The antebrachial fascia was released proximally freeing the median nerve at the wrist. Procedure Description: Viktoriya was greeted in the preoperative holding area where the correct side was identified and marked. The consent was reviewed with the patient and signed. The history and physical was updated. All questions were answered. She was taken back to the operating room. The patient was placed into the supine position on the operating room table with the right arm on an arm board. A nonsterile tourniquet was placed high onto the arm. All bony prominences were well padded. Prophylactic antibiotics in the form of Cefazolin were administered. The right arm was then prepped with Chloraprep and draped in a standard fashion with stockinette and extremity drape. A timeout to confirm correct identity, side and site, procedure, allergies, anesthesia, and medical concerns was performed. The surgical site was marked in the volar wrist creases in line with the radial border of the fourth ray. This area was anesthetized with approximately 6cc of 1% Lidocaine. The limb was then exsanguinated with an Esmarch. The skin was incised with a 15 blade, approximately 1cm. The skin only was cut and the deeper tissue was dissected bluntly with a tenotomy scissor, avoiding passing nerve and venous structures. The fascia was penetrated and opened bluntly. A two-prong skin hook was placed under this proximal fascial edge. A series of hamate finders were used to identify and dilate the carpal tunnel. Synovial elevator was used to free synovial attachments to the underside of the transverse carpal ligament. My thumb was kept in the palm to robi the distal extent of the carpal tunnel and correctly position the hand. The Microaire endoscope was inserted without difficulty and without resistance. Excellent visualization showed horizontally running fibers of the transverse carpal liga ment (TCL). The distal extent of the TCL was visualized and the end of the scope palpated with the thumb. The blade was elevated and withdrawn from distal to proximal. The TCL was split into two flaps. The endoscope was reinserted to confirm complete release and any remnant ligament was incised. The scope was withdrawn and the proximal aspect of the carpal tunnel was grossly inspected and appeared release with the median nerve visible. The antebrachial fascia at the level of the wrist was then freed from the overlying skin and then the underlying median nerve with blunt dissection. This was transected longitudinally for about 3cm proximal to the wrist incision. The wound was then irrigated with easy flow of irrigant distally and proximally. The incision was closed with a single 4-0 Nylon suture. The wound was dressed with Xeroform, Gauze, Kerlix and Christiano. The tourniquet was deflated with the initial dressing and held with some pressure. Blood flow returned easily to all digits with capillary refill less than 2 seconds. The patient tolerated the procedure well and was returned to the Same Day Surgery area in a stable condition suffering no known complication. Date of Procedure: 09/27/24
[2024-09-27] MEDS: ceFAZolin 2 GM/50 ML BAG IVPB (07:33)
[2024-09-27] MEDS: Lidocaine 1% Multi-Dose W/EPI 1/100,000 50 ML VIAL (07:42)
[2024-09-27 07:53] VITALS: BP 99/60; PULSE 71; RESP 16; TEMP 36.4; O2SAT 94
--- NOTE | 2024-09-27 08:03 | W.ANESPOSTOP ---
Postoperative Evaluation Date, Time and Location Date Performed: 09/27/24 Time Performed: 08:03 Patient Location: Day Surgery Unit Vital Signs Most Recent Imported Vital Signs: Most Recent Vital Signs Temp Pulse Resp BP Pulse Ox 36.4 C L 71 16 99/60 L 94 09/27/24 07:53 09/27/24 07:53 09/27/24 07:53 09/27/24 07:53 09/27/24 07:53 Pain Score Most Recent Pain Score: Most Recent Pain Score Pain Level 0 09/27/24 07:53 Assessment Mental Status: Arousable with meaningful communication Airway and Respiratory Function: Patent airway with normal (patient baseline) respiratory exam Cardiovascular Function: Hemodynamically Stable Hydration Status: Adequately Hydrated Nausea & Vomiting: No Nausea or Vomiting Pain: Pt. Denies Any Pain Peripheral Nerve Block: Patient did not receive a nerve block
[2024-09-27 08:20] VITALS: BP 95/64; PULSE 66; RESP 18; TEMP 36.5; O2SAT 96
[2024-09-27 08:45] VITALS: BP 118/83; PULSE 70; O2SAT 97
== END 2024-09-27 08:56 | disposition home or self-care (01) ==
PROVIDERS: PCP Family Medicine; Visit Provider Student in an Organized Health Care Education/Training Program
PROC: 01N54ZZ Release Median Nerve, Percutaneous Endoscopic Approach (ICD-10-PCS; CPT 29848; principal; 2024-09-27 07:30)
DX: G56.01 Carpal tunnel syndrome, right upper limb (principal)
CPT/HCPCS: 29848; 81025; J0690; J2004; J2250; J2405; J2704; J3010

== ENCOUNTER 2024-10-04 06:05 | Day surgery (SDC) | payer MEDICAID, SELFPAY ==
--- NOTE | 2024-09-08 19:07 | PDOC.MHCN_ITS ---
Date of service: 09/08/24 Time of Service: 20:01 PHQ-9 Over the last 2 weeks, how often have you been bothered by any of the following problems? 1. Little interest or pleasure in doing things: nearly every day 2. Feeling down, depressed, or hopeless: more than half the days 3. Trouble falling or staying asleep, or sleeping too much: nearly every day 4. Feeling tired or having little energy: more than half the days 5. Poor appetite or overeating: more than half the days 6. Feeling bad about yourself - or that you are a failure or have let yourself and your family down: not at all 7. Trouble concentrating on things, such as reading the newspaper or watching television: nearly every day 8. Moving or speaking so slowly that other people could have noticed? - Or the opposite - being so fidgety or restless that you have been moving around a lot more than usual: not at all 9. Thoughts that you would be better off or of hurting yourself in some way: not at all Total score: 15 If you checked off any problems, how difficult have these problems made it for you to do your work, take care of things at home, or get along with other people?: very difficult Source: Developed by Drs. Av Charlton, Analisa Hylton, Malachi Estevez and colleagues, with an educational ray from [employer]. Suicide Severity Rate CSSRS Have you wished you were or wished you could go to sleep and not wake up?: Yes Have you actually had any thoughts of killing yourself?: Yes CSSRS2 Have you been thinking about how you might do this?: Yes Have you had these thoughts and had some intention of acting on them?: Yes Have you started to work out or worked out the details of how to kill yourself? Do you intend to carry out this plan?: No CSSRS3 Have you ever done anything, started to do anything or prepared to do anything to end your life?: Yes Screening Score Total Score: 6 Screening: Positive Mental Health Emergency Note Release [facility] release signed:: Yes Reason for Visit To get their head checked out, and intrusive thoughts of harming themselves. In the last 2 weeks has the pt presented for ES prior to today?: No Client Information Well Housed: Yes Non Suicidal Self Injury Current: Yes, the client has been experiencing intrusive thoughts (40 times a day) to cut her wrists, stab herself, cut her hands off and starve to . History: yes, No further details discussed Safety Risk/Harm to Self or Others Current Ideation to Harm Self or Others: Yes to self. Intent: yes, has intent. Plan: no.does not have a plan. Risk: Does risk to harm exist?: yes. Access to means: Yes. Types of Means: Other weapons. Counseling provided: No Asssessment/Mental Status Appearance: Well groomed Attitude: Cooperative and Friendly Behavior: Other (The client presents tired) Speech: Normal Affect: Cogruent with mood Mood: Anxious Thought process: Goal directed Hallucinations: No Delusions: No Attention: Unremarkable Perception: Not impaired Orientation: Fully orientated Memory: Intact Insight: Poor Judgement: Poor Neurovegetative Symptoms Sleep: Decrease Appetitie: Decrease Interests: No change Energy: Decrease Libido: Not applicable Substance Use: Do you use nicotine?: Yes Additional Issues: Assaultive/Threatening Behavior: No Medical Concerns: Yes Client engaged in active self harm w/weapon: Yes Threatening to run away: No Child reported abuse/neglect: No Voluntarily presenting for services: Yes Domestic violence is a concern: No Extreme Psychosis or extreme behavior is present: No Impression The client is a 48-year-old, , who identifies as bisexual and non-binary. 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 Per initial assessment by [facility] the client explained that she banged her head as she jumped up from a nightmare a week ago hitting her head on the night stand. She presents well groomed and slightly embarrassed at some of her answers but understands the need to be truthful. She was reassured that we are not judging her and to continue to be honest so we can offer her the most appropriate support. The client shows good insight and judgement. She makes good eye contact throughout the assessment. The client reported she is having to force herself to eat and that her sleep is horrible. She is fully oriented. The client identified that when she is experiencing the AH she would rate her risk a 6/10 otherwise her risk is a 0/10. The client has a hx of ETOH abuse and has not drank in 4 years. She currently uses THC gummies which were working to help her mood and are no longer helping. She chews nicotine gum and occasionally vapes As discussed in previous assessment with JOSE Ann the client engaged in a safety plan where the CARE bed was discussed. The client was agreeable and interested in a referral to the CARE bed when it was available. The client was agreeable to give up all SHARPS over to her soon to be ex and agreed to call [phone] when she was experiencing negative thoughts. The client also agreed to an in person meeting on Wednesday at the office to where the CARE bed would be further discussed. The client presented to [facility] ED to get her head checked out per collateral report from JOSE Ann, and the client reported to ED staff the intrusive thoughts she is experiencing such as cutting off her arms. The client was initially seen at 5:20pm by this clinician per request of [facility] ED provider July. The client reported nothing has changed since the assessment that took place at 2:30pm and was agreeable to the follow up actions put in place by JOSE Ann. The client also agreed to follow up actions by this clinician of checking in at the [facility] located in [place], [place] and a check in phone call with ES on Wednesday. The client was seen a second time by this clinician at 6:50pm with further safety concerns from the [facility] ED provider July. The client is currently reporting concerns around being able to keep herself safe at home. The client states although she will give all access to means to her soon to be ex she feels she will still be able to find items to harm herself with, and is unable to commit to the safety plan with JOSE Ann. The client reports her needs as voluntary inpatient treatment. Plan/Disposition Recommended Disposition: Hospitalization ([facility], [facility], [facility], [facility], and [facility]) facilities contacted. Plan: The client will remain at [facility] until placement is secured at an inpatient hospital. The client will receive daily assessments by ES until placement is secured. Reports/communication Outcome discussed with: ED/Personnel
--- NOTE | 2024-09-09 20:21 | PDOC.MHPN2 ---
Date of service: 09/09/24 Time of Service: 09:00 PHQ-9 Over the last 2 weeks, how often have you been bothered by any of the following problems? 1. Little interest or pleasure in doing things: more than half the days 2. Feeling down, depressed, or hopeless: more than half the days 3. Trouble falling or staying asleep, or sleeping too much: more than half the days 4. Feeling tired or having little energy: more than half the days 5. Poor appetite or overeating: not at all 6. Feeling bad about yourself - or that you are a failure or have let yourself and your family down: several days 7. Trouble concentrating on things, such as reading the newspaper or watching television: several days 8. Moving or speaking so slowly that other people could have noticed? - Or the opposite - being so fidgety or restless that you have been moving around a lot more than usual: several days 9. Thoughts that you would be better off or of hurting yourself in some way: nearly every day Total score: 14 If you checked off any problems, how difficult have these problems made it for you to do your work, take care of things at home, or get along with other people?: somewhat difficult PHQ-9 Results: Positive Source: Developed by Drs. Av Charlton, Analisa Hylton, Malachi Estevez and colleagues, with an educational ray from [employer]. Suicide Severity Rate CSSRS Have you wished you were or wished you could go to sleep and not wake up?: Yes Have you actually had any thoughts of killing yourself?: Yes CSSRS2 Have you been thinking about how you might do this?: Yes Have you had these thoughts and had some intention of acting on them?: Yes Have you started to work out or worked out the details of how to kill yourself? Do you intend to carry out this plan?: No CSSRS3 Have you ever done anything, started to do anything or prepared to do anything to end your life?: Yes CSSRS4 Was this within the past three months?: No Screening Score Total Score: 6 Screening: Positive Mental Health Emergency Note Release [facility] release signed:: Yes Reason for Visit Ms Van is a 48 year old single female who resides in [facility] who identifies as nonbinary and bisexual. The client presented as friendly and cooperative. The client's main complaint is of intrusive thoughts telling her to kill herself. The client states that she struggled with sleeping and woke up frequently throughout the night. The client states that she ate breakfast of scrambled eggs and toast. The client will continue to wait for in patient treatment at the [facility]. The client requested nicotine gum. In the last 2 weeks has the pt presented for ES prior to today?: Yes, presented at Client Information Client is: Adult Outpatient Well Housed: Yes Non Suicidal Self Injury Current: No History: No Safety Risk/Harm to Self or Others Current Ideation to Harm Self or Others: Yes to self. Intent: no, has no intent. Plan: no.does not have a plan. Risk: Does risk to harm exist?: No Duty to warn indicated: No Asssessment/Mental Status Appearance: Well groomed Attitude: Cooperative and Friendly Behavior: Unremarkable Speech: Pressured Affect: Expansive Mood: Stressed Thought process: Goal directed Hallucinations: No Delusions: No Attention: Unremarkable Perception: Not impaired Orientation: Fully orientated Memory: Intact Insight: Fair Judgement: Fair Neurovegetative Symptoms Sleep: Decrease Appetitie: Increase Interests: Increase Energy: Increase Libido: Not applicable Substance Use: Do you use nicotine?: Yes Have you used substances in the last 7 days?: yes, unknown Additional Issues: Assaultive/Threatening Behavior: No Medical Concerns: No Client engaged in active self harm w/weapon: No Threatening to run away: No Child reported abuse/neglect: No Voluntarily presenting for services: Yes Domestic violence is a concern: No Impression Ms Van is a 48 year old single female who resides in [facility] who identifies as nonbinary and bisexual. The client presented as friendly and cooperative. The client's main complaint is of intrusive thoughts telling her to kill herself. The client states that she struggled with sleeping and woke up frequently throughout the night. The client states that she ate breakfast of scrambled eggs and toast. The client will continue to wait for in patient treatment at the [facility]. The client requested nicotine gum. Plan/Disposition Recommended Disposition: Hospitalization facilities contacted. Reports/communication Outcome discussed with: ED/Personnel
--- NOTE | 2024-09-11 15:45 | MHPN_ITS ---
Date of service: 09/11/24 Time of Service: 11:25 PHQ-9 Over the last 2 weeks, how often have you been bothered by any of the following problems? 1. Little interest or pleasure in doing things: more than half the days 2. Feeling down, depressed, or hopeless: more than half the days 3. Trouble falling or staying asleep, or sleeping too much: nearly every day 4. Feeling tired or having little energy: more than half the days 5. Poor appetite or overeating: not at all 6. Feeling bad about yourself - or that you are a failure or have let yourself and your family down: not at all 7. Trouble concentrating on things, such as reading the newspaper or watching television: several days 8. Moving or speaking so slowly that other people could have noticed? - Or the opposite - being so fidgety or restless that you have been moving around a lot more than usual: not at all 9. Thoughts that you would be better off or of hurting yourself in some way: more than half the days Total score: 12 If you checked off any problems, how difficult have these problems made it for you to do your work, take care of things at home, or get along with other people?: somewhat difficult PHQ-9 Results: Positive Source: Developed by Drs. Av Charlton, Analisa Hylton, Malachi Estevez and colleagues, with an educational ray from [employer]. Suicide Severity Rate CSSRS Have you wished you were or wished you could go to sleep and not wake up?: Yes Have you actually had any thoughts of killing yourself?: Yes CSSRS2 Have you been thinking about how you might do this?: Yes Have you had these thoughts and had some intention of acting on them?: No Have you started to work out or worked out the details of how to kill yourself? Do you intend to carry out this plan?: No CSSRS3 Have you ever done anything, started to do anything or prepared to do anything to end your life?: Yes CSSRS4 Was this within the past three months?: No Screening Score Total Score: 6 Screening: Positive Mental Health Emergency Note Release [facility] release signed:: Yes Reason for Visit Ms Van is a 48 year old single female who resides in [facility]. This client presented as friendly, cooperative and anxious. The client's main complaint is of intrusive thoughts telling her to kill herself. Per documentation review of the client's psychiatrist that saw the client within the last 24 hours of this note, the psychiatrist states that an EE should be done if the client attempts to leave [facility]. The client states having eaten breakfast. The client states that she had disruptive sleep and woke up frequently. The client states she has nightmares relating to PTSD. The client states that she is feeling uncomfortable at night in zone b. This clinician informed the client that the client can request having her door locked at night and access the nurses through the call button. The client will wait voluntarily at the [facility] zone b. In the last 2 weeks has the pt presented for ES prior to today?: Yes, presented at Client Information Client is: Adult Outpatient Well Housed: Yes Non Suicidal Self Injury Current: No History: No Safety Risk/Harm to Self or Others Current Ideation to Harm Self or Others: Yes to self. Intent: no, has no intent. Plan: no.does not have a plan. Risk: Does risk to harm exist?: No Duty to warn indicated: No Asssessment/Mental Status Appearance: Unremarkable Attitude: Cooperative and Friendly Behavior: Unremarkable Speech: Soft Affect: Expansive Mood: Anxious Thought process: Goal directed Hallucinations: No Delusions: No Attention: Unremarkable Perception: Not impaired Orientation: Fully orientated Memory: Intact Insight: Fair Judgement: Fair Neurovegetative Symptoms Sleep: No change Appetitie: No change Interests: No change Energy: No change Libido: Not applicable Substance Use: Do you use nicotine?: Yes Have you used substances in the last 7 days?: yes, unknown Additional Issues: Assaultive/Threatening Behavior: No Medical Concerns: No Client engaged in active self harm w/weapon: No Threatening to run away: No Child reported abuse/neglect: No Voluntarily presenting for services: Yes Domestic violence is a concern: No Extreme Psychosis or extreme behavior is present: No Impression Ms Van is a 48 year old single female who resides in [facility]. This client presented as friendly, cooperative and anxious. The client's main complaint is of intrusive thoughts telling her to kill herself. Per documentation review of the client's psychiatrist that saw the client within the last 24 hours of this note, the psychiatrist states that an EE should be done if the client attempts to leave [facility]. The client states having eaten breakfast. The client states that she had disruptive sleep and woke up frequently. The client states she has nightmares relating to PTSD. The client states that she is feeling uncomfortable at night in zone b. This clinician informed the client that the client can request having her door locked at night and access the nurses through the call button. The client will wait voluntarily at the [facility]. Plan/Disposition Recommended Disposition: Hospitalization facilities contacted. Plan: This client will wait for in patient treatment at [facility]. Person reported agreement to plan: Yes Reports/communication Outcome discussed with: ED/Personnel
--- NOTE | 2024-09-12 13:33 | MHPN_ITS ---
Date of service: 09/12/24 Time of Service: 10:05 Suicide Severity Rate CSSRS Have you wished you were or wished you could go to sleep and not wake up?: Yes Have you actually had any thoughts of killing yourself?: Yes CSSRS2 Have you been thinking about how you might do this?: Yes Have you had these thoughts and had some intention of acting on them?: Yes Have you started to work out or worked out the details of how to kill yourself? Do you intend to carry out this plan?: No CSSRS3 Have you ever done anything, started to do anything or prepared to do anything to end your life?: Yes CSSRS4 Was this within the past three months?: No Screening Score Total Score: 6 Screening: Positive Mental Health Emergency Note Release [facility] release signed:: Yes Reason for Visit Ms Van is a 48 year old single female who resides in [facility]. The client presented as friendly and cooperative throughout this reassessment. This client states that she slept better last night. The client states that she ate some toast for breakfast. This client states that she is hasn't expierienced self harm thoughts within 24 hours but is still seeking treatment and per psychiatrist's notes the client's psychiatrist is recommending the client continue to seek in patient care due to the compulsion nature of the thoughts. The client is agreeable to stay voluntarily for in patient treatment. In the last 2 weeks has the pt presented for ES prior to today?: No Client Information Client is: Adult Outpatient Well Housed: Yes Asssessment/Mental Status Appearance: Unremarkable and Well groomed Attitude: Cooperative and Friendly Behavior: Unremarkable Speech: Soft Affect: Expansive Mood: Euthymic Thought process: Unremarkable Hallucinations: No Delusions: No Attention: Unremarkable Perception: Not impaired Orientation: Fully orientated Memory: Intact Insight: Fair Judgement: Fair Neurovegetative Symptoms Sleep: Increase Appetitie: No change Interests: No change Energy: No change Libido: Not applicable Substance Use: Do you use nicotine?: Yes Have you used substances in the last 7 days?: yes, unknown Additional Issues: Assaultive/Threatening Behavior: No Medical Concerns: No Client engaged in active self harm w/weapon: No Threatening to run away: No Child reported abuse/neglect: No Voluntarily presenting for services: Yes Domestic violence is a concern: No Extreme Psychosis or extreme behavior is present: No Impression Ms Van is a 48 year old single female who resides in [facility]. The client presented as friendly and cooperative throughout this reassessment. This client states that she slept better last night. The client states that she ate some toast for breakfast. This client states that she is hasn't expierienced self harm thoughts within 24 hours but is still seeking treatment and per psychiatrist's notes the client's psychiatrist is recommending the client continue to seek in patient care due to the compulsion nature of the thoughts. The client is agreeable to stay voluntarily for in patient treatment. Plan/Disposition Recommended Disposition: Hospitalization facilities contacted. Plan: The client will wait for in patient treatment at [facility]. Reports/communication Outcome discussed with: ED/Personnel
[2024-10-04 06:26] VITALS: BP 126/95; PULSE 68; RESP 20; TEMP 36.6; O2SAT 97
--- NOTE | 2024-10-04 07:01 | W.ANESPRE ---
General Info Date of Service Date Performed: 10/04/24 Height: 5 ft 6 in Weight: 119.5 kg Body Mass Index (BMI): 42.5 Surgical Procedure: Operation Date: 10/04/24 07:40 Proposed Procedure Side Surgeon p Wrist ECTR Left Jeevan Arguelles MD Meds Allergies and Home Medications Allergies Allergy/AdvReac Type Severity Reaction Status Date / Time adhesive tape Allergy Severe Skin Rash Verified 10/04/24 06:19 corn Allergy Severe Anaphylaxis Verified 10/04/24 06:19 COVID-19 vacc, bv (Orig, Allergy Severe Swelling/Ed Verified 10/04/24 06:19 Omicron BA.4/5) (Moderna) deangelo (From Moderna COVID Bival(6m up)(PF)) peanut Allergy Severe Anaphylaxis Verified 10/04/24 06:19 watermelon Allergy Severe Other (See Verified 10/04/24 06:19 Comment) wheat Allergy Severe Anaphylaxis Verified 10/04/24 06:19 rice Allergy Intermediate Skin Rash Verified 10/04/24 06:19 Sulfa (Sulfonamide Allergy Mild vomiting Verified 10/04/24 06:19 Antibiotics) latex Allergy Skin Rash Verified 10/04/24 06:19 bandaids Allergy Severe severe Uncoded 10/04/24 06:19 skin rash Home Medication ?Medication ?Instructions ?Recorded lactobacillus combination no.9 4 See Rx Instructions .Route 04/14/22 billion cell capsule (Adult 50 .COMPLEX PRN Plus Probiotic) metoprolol tartrate 50 mg tablet 50 mg PO BID 04/14/22 propylene glycol 0.6 % eye drops 1 drp ophthalmic (eye) DAILY PRN 04/14/22 (Systane Complete) amlodipine 10 mg tablet 10 mg PO HS 05/05/22 diclofenac sodium 1 % topical gel 2 g topical QID 05/05/22 ketoconazole 2 % topical cream 1 applic topical DAILY 05/05/22 mupirocin 2 % topical ointment 1 applic topical BID 05/05/22 naloxone 4 mg/actuation nasal spray 4 mg intranasal Q2M PRN 08/27/22 aripiprazole 2 mg tablet (Abilify) 4 mg PO DAILY 02/23/23 venlafaxine 225 mg tablet,extended 150 mg PO DAILY 02/23/23 release 24 hr cholecalciferol (vitamin D3) 25 25 mcg PO DAILY 02/25/23 mcg (1,000 unit) capsule famotidine 10 mg tablet 10 mg PO DAILY 02/25/23 lisinopril 10 mg tablet 10 mg PO DAILY 02/25/23 topiramate 50 mg tablet 100 mg PO BID 03/03/23 tramadol 50 mg tablet 50 mg PO Q6H PRN 03/03/23 levonorgestrel 21 mcg/24 hr (up to 1 device intrauterine ONCE #1 ea 07/27/23 8 years) 52 mg intrauterine device (Mirena) rizatriptan 10 mg tablet See Rx Instructions PO .COMPLEX 01/17/24 #12 tabs atomoxetine 10 mg capsule 60 mg PO QAM 05/30/24 (Strattera) Bacillus coagulans 10 billion cell 10 cell PO DAILY 08/01/24 capsule,delayed release (Probiotic (B. coagulans)) epinephrine 0.3 mg/0.3 mL 0.3 mg IM ONCE 08/01/24 injection, auto-injector magnesium oxide 400 mg PO DAILY 08/01/24 omeprazole 20 mg capsule,delayed 20 mg PO DAILY 08/01/24 release prazosin 1 mg capsule 2 mg PO HS PTSD nightmares 09/26/24 acetaminophen 500 mg tablet 1,000 mg (2 x 500 mg) PO TID #90 09/27/24 tabs ibuprofen 600 mg tablet 600 mg PO TID PRN pain #90 tabs 09/27/24 acetylcysteine 600 mg capsule (NAC) 800 mg PO BID 10/02/24 gabapentin 800 mg tablet 400 mg PO TID 10/02/24 Current Visit Medications: Current Medications Generic Name Dose Route Start Last Admin Trade Name Freq PRN Reason Stop Dose Admin Ringer's Solution 1,000 mls @ 80 mls/hr 10/04/24 06:00 IV 10/04/24 23:59 INFUSION BELINDA Cefazolin Sodium/Dextrose 2 gm in 50 mls @ 100 mls/hr 10/04/24 06:00 Ancef Duplex IVPB 10/04/24 23:59 PREOP BELINDA IV Miscellaneous Supplies 1 each 10/04/24 06:00 Iv Access IV 10/04/24 23:59 DIRECTED BELINDA Sodium Chloride 0 ml 10/04/24 06:00 Normal Saline Flush 10 Ml Syr IV 10/04/24 23:59 PRN PRN Sodium Chloride 0 ml 10/04/24 06:00 Normal Saline 10 Ml Vial IJ 10/04/24 23:59 DIRECTED PRN Sterile Water 0 ml 10/04/24 06:00 Water,Injection,Sterile 10 Ml Vial IJ 10/04/24 23:59 DIRECTED PRN PFSH Active Problems Active Problems: Problem Status Onset Code S/P endoscopic carpal tunnel release Acute Z98.890 Suicidal ideation Acute R45.851 Depression Chronic F32.A Post concussion syndrome Acute F07.81 Brain injury NEC-concussion Acute S06.89AA Left carpal tunnel syndrome Acute G56.02 Carpal tunnel syndrome of right wrist Acute G56.01 Encounter for insertion of mirena IUD Acute Z30.430 Cholelithiases Acute K80.20 Abnormal perimenopausal bleeding Acute N92.4 Instability of left shoulder joint Acute M25.312 Tendinopathy of left biceps tendon Acute M67.922 Chiari malformation type I Acute G93.5 Hypertension Chronic I10 GERD (gastroesophageal reflux disease) Chronic K21.9 Obstructive sleep apnea Chronic G47.33 Chronic migraine without aura Acute G43.709 Anemia, iron deficiency Acute D50.9 Anxiety and depression Chronic F41.9, F32.A Degenerative disc disease, cervical Acute M50.30 Degenerative disc disease, lumbar Acute M51.36 Chronic pain syndrome Chronic G89.4 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 Sessile serrated polyp of colon Acute ~12/18/23 D12.6 Radicular syndrome of right leg Acute M54.10 Paresthesias Acute R20.2 Idiopathic small fiber peripheral neuropathy Acute G60.9 Dysphagia Acute R13.10 Bilateral hip pain Acute M25.551, M25.552 Thoracic outlet syndrome Acute G54.0 Chronic pain syndrome Chronic G89.4 Hypertension Chronic I10 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 Surgical History Surgical History History of laparoscopic cholecystectomy (~06/2023) Hx of colonoscopy (~04/2023) S/P hernia repair Tobacco Smoking/Tobacco Use Status: Former Tobacco Use Passive smoking exposure: No Alcohol Alcohol Intake: former Substance Use Substance use: Occasionally Substance use type: marijuana Details: marijuana: edibles, t-3, 5 mg Prental History History 4 Para 2 Hx # Term Pregnancies 2 Multiple births Hx # Pregnancies Ectopic pregnancies AB induced Hx Number of Living Children 2 AB spontaneous 2 Vital Signs and Lab Results Vital Signs Most Recent Vital Signs in EMR: Most Recent Vital Signs Temp Pulse Resp BP Pulse Ox 36.6 C 68 20 126/95 H 97 10/04/24 06:26 10/04/24 06:26 10/04/24 06:26 10/04/24 06:26 10/04/24 06:26 Lab Results Blood Type / Crossmatch: No Data to Display Complete Blood Count: White Blood Count 8.96 10^3/uL (4.4-10.8) 09/08/24 18:01 Red Blood Count 4.66 10^6/uL (3.93-5.22) 09/08/24 18:01 Hemoglobin 13.7 g/dL (11.2-15.7) 09/08/24 18:01 Hematocrit 41.9 % (36.0-46.0) 09/08/24 18:01 Platelet Count 230 10^3/uL (130-400) 09/08/24 18:01 Complete Metabolic Panel: Sodium 141 mmol/L (136-145) 09/08/24 18:01 Potassium 3.5 mmol/L (3.5-5.1) 09/08/24 18:01 Chloride 107 mmol/L (98-107) 09/08/24 18:01 Carbon Dioxide 27.8 mmol/L (21.0-32.0) 09/08/24 18:01 BUN 9 mg/dL (7-18) 09/08/24 18: Creatinine 1.0 mg/dL (0.55-1.02) 09/08/24 18: Est GFR (CKD-EPI 2020) 69.49 (mL/min/1.73m2) 09/08/24 18: Calcium 8.9 mg/dL (8.5-10.1) 09/08/24 18: Albumin 3.3 g/dL (3.4-5.0) L 09/08/24 18: Glucose 80 mg/dL (74-106) 09/08/24 18:01 Liver Function Panel: Alanine Aminotransferase (ALT/SGPT) 23 U/L (14-59) 09/08/24 18:01 Aspartate Amino Transf (AST/SGOT) 10 U/L (15-37) L 09/08/24 18:01 Coagulation Panel: No Data to Display Cardiac Panel: No Data to Display Arterial Blood Gas: No Data to Display Venous Blood Gas: No Data to Display Pancreas Panel: No Data to Display Thyroid Panel: No Data to Display Infectious Disease: No Data to Display Blood Cultures: No Data to Display Toxicology Panel: Ethyl Alcohol Level < 3.0 mg/dL (<10) 09/08/24 18:01 Urine Amphetamines Screen Negative (Negative) 09/08/24 17:20 Urine Benzodiazepines Screen Negative (Negative) 09/08/24 17:20 Urine Barbiturates Screen Negative (Negative) 09/08/24 17:20 Urine Cocaine Screen Negative (Negative) 09/08/24 17:20 Urine Methadone Screen Negative (Negative) 09/08/24 17:20 Urine Opiates Screen Negative (Negative) 09/08/24 17:20 Ur Tricyclic Antidepressants Screen Negative (Negative) 09/08/24 17:20 Ur Tetrahydrocannabinol (THC) Scrn Positive (Negative) A 09/08/24 17:20 Panel: No Data to Display Imaging and Studies Imaging and Studies Study information below may be from another EMR and interpreted by another provider. Please see original notes in EMR for more complete details. EKG Summary: 08/13: sinus. EKG PATIENT NAME: Viktoriya Van UNIT #: [id number] ORDERING PROVIDER: Dipak Espinoza M.D. PRIMARY CARE PROVIDER: RITO LOUIE MD DATE/TIME OF SERVICE: 06/24/23 1319 : 1975 PERFORMING LOCATION: [place] APPROVED REPORT Exam: Resting ECG Reason for Exam: chest pain Patient Location: E HR:80 bpm ECG Measurements Heart Rate 80 AXIS IN 162 P 29 QRSd 109 QRS -16 QT 415 T27 QTc 479 Conclusion Sinus rhythm...normal P axis, V-rate 60- 99 Low voltage, precordial leads...precordial leads <1.0mV <Electronically signed by DIPAK ESPINOZA MD in [place]> E-Sign Date: 06/24/23 E-Sign Time: 1441 ADDENDUM APPROVED REPORT Exam: Resting ECG Reason for Exam: chest pain Patient Location: E HR:80 bpm ECG Measurements Heart Rate 80 AXIS IN 162 P 29 QRSd 109 QRS -16 QT 415 T27 QTc 479 Conclusion Sinus rhythm...normal P axis, V-rate 60- 99 Low voltage, precordial leads...precordial leads <1.0mV I have reviewed and I agree with the emergency room physician's ECG interpretation. Electronically signed by: <Electronically signed by Palomo Pete M.D. in [place]> 06/25/23 0825 Cosigned by: Stress Test Summary: 01/12: 7 mets, no ischemia noted. STRESS TEST PATIENT NAME: Marcela Van UNIT #: [id number] ORDERING PROVIDER: Ellyn Mishra NP PRIMARY CARE PROVIDER: UNKNOWN,UNKNOWN DATE/TIME OF SERVICE: 01/06/22 ADMITTING PROVIDER: ANI MAYA,SAMARIA GIBSON : 1975 APPROVED REPORT Exam: Exercise Treadmill Patient Location: Out-Patient Room/Bed: Ordering Provider:ELLYN MISHRA, Contact Number: [phone] BMI: 38.68 Baseline Rhythm: Sinus Rhythm Comment: Resting ST abnormality lead III Indications: Angina Medical History Medical History: Hypertension, obesity, mild asthma, current tobacco use, chest pain Cardiac Medications: Metoprolol succinate, amlodipine, lisinopril, gabapentin, meloxicam, venlafaxine Allergies: Sulfa antibiotics Cardiac Risk Factors: Hypertension, obesity, asthma, smoker (current), family hx Previous Cardiac Procedures: None Pretest Chest Pain Characteristics: None Exercise History: Sedentary Physical Disabilities: None Lung Sounds: Clear to auscultation Heart Sounds: Regular Stress Test Details Test: Exercise stress testing was performed using a Antonio protocol. Rest Stress HR Resting HR Supine: 75 bpmMax Heart Rate (APMHR): 174 bpm Resting HR Standin bpmTarget HR (85% APMHR): 147 bpm Max HR Achieved: 140 bpm % of APMHR: 80 Recovery HR: 79 bpm HR response to stress: Normal HR response to stress Comment: Nondiagnostic- THR not achieved. Metoprolol succinate last dose was yesterday PM. BP Resting BP Supine: 124/88 mmHg Resting BP Standin/90 mmHg Max BP: 176/82 mmHg Recovery BP: 114/78 mmHg BP response to stress: Normal blood pressure response to stress. ECG Resting ECG: Sinus Rhythm Ectopy: None Comment: Resting ST abnormality lead III Stress ECG: Sinus Tachycardia ST Change: Nondiagnostic low heart rate, No significant ST segment changes noted Arrhythmia: None Recovery ECG: Sinus Rhythm Recovery ST Change: Nondiagnostic low heart rate, No significant ST segment changes noted Recovery Arrhythmia: None Clinical Reason for Termination: Dyspnea Stress Symptoms: General Fatigue, Dyspnea Exercise duration: 5 min01 sec Highest Stage Reached: Stage 2: 2.5 mph at 12% grade. Exercise capacity: 7.05 METs Angina Score: None Britton Treadmill Score: 4.8 Rate Pressure Product: 64072 Stress ECG Conclusion 1. Resting electrocardiogram was within normal limits 2. Patient exercised on the Antonio protocol completed a workload of 7.05 METS, stopping due to fatigue and dyspnea. No chest pain was described 3. Normal hemodynamic response to exercise. Peak heart rate achieved was 80% of predicted for age 4. At that level of heart rate and workload, there was no electrocardiographic evidence of myocardial ischemia 5. There were no dysrhythmias Britton Treadmill Score is 4.8 which is Moderate risk. Stress Test Summary STAGETime (mins)Speed (mph)Grade (%)[id number]/88 [id number]/9098% [id number]/8296%4.5 [id number]%Severe SOB7 1 min [id number]/8298%Moderate SOB 3 min [id number]/8098%Mild SOB 6 min [id number]/7898%SOB resolved Pt reported sudden severe SOB during second stage of Antonio protocol and requested termination of test. SOB resolved by minute 4 of recovery. Dictated by: SAMARIA LAW MD Dictated:: 01/06/22 0947 <Electronically signed by Samaria Law M.D. in [place]> 01/06/22 1009 Transcribed Date: Transcribed Time: By: ANNA MARIE This is privileged, confidential information, intended only for the provider named. Any use or distribution by any person other than this provider is strictly prohibited. If you receive this report in error, please notify us immediately at 80 Other Study Summary:: c spine MRI, MRI brain, L spine MRI, abd MRI reviewed and results in charts Anesthesia Assessment and Plan Anesthesia History Personal History: No History of Anesthesia Complications Family History: Other Exercise Tolerance Exercise Tolerance: Metabolic Equivalents>4 Pertinent Negatives Pertinent Negatives: No Major Cardiovascular Symptoms or Complaints, No Major Pulmonary Symptoms or Complaints and No History of CVA/TIA Cardiac & Pulmonary Exam Cardiac Exam: Normal S1/S2 Heart Sounds Pulmonary Exam: Clear Bilateral Breath Sounds Implantable Cardiac Device Does patient have a Pacemaker or an ICD?: No Airway Exam Known Difficult Airway: No Mallampati Class: 3 Mouth Opening: Normal (> 3cm) Thyromental Distance: Greater than 3 cm Neck Range of Motion: Known Cervical Instability or radiculopathy Neck Circumference: Normal Teeth Condition: Normal Dentition ASA Classification ASA Score: ASA 3 Emergency Case?: No NPO Status NPO Status: NPO Clears >2 hours, Solids >8 hours Status Status: Negative HCG Anesthesia Plan Resuscitation Status: Full Code Anesthesia Technique: MAC Anesthesia Airway Planned: Natural Airway Monitors Used: Standard Monitors
[2024-10-04] MEDS: Lactated Ringers 1,000 ML 80 ML IV (07:02)
[2024-10-04 07:03] VITALS: BMI 42.5
--- NOTE | 2024-10-04 07:10 | W.PM.DSUDISC ---
Date of service: 10/04/24 Discharge Plan Disposition Patient Disposition: Home Condition: Good Discharge Details Reason For Visit: L ECTR Attending Provider: Jeevan Arguelles Primary Care Provider: Parminder Rivera Home Meds and New Rx's Prescriptions: Continued atomoxetine [Strattera] 10 mg capsule 60 mg PO QAM Rx Instructions: take 60 mg in the morning. Take 40mg in the afternoon. venlafaxine 225 mg tablet extended release 24hr 150 mg PO DAILY aripiprazole [Abilify] 2 mg tablet 4 mg PO DAILY rizatriptan 10 mg tablet See Rx Instructions PO .COMPLEX Qty: 12 11RF Rx Instructions: take 1 tab at onset of headache; if no relief may repeat 1 tab after at least 2 hrs; max = 2 tabs/24 hr PO naloxone 4 mg/actuation spray,non-aerosol 4 mg intranasal Q2M PRN Rx Instructions: spray 1 dose into ONE nostril; alternate nostrils w each dose until help arrives Mirena 21 mcg/24 hours (8 yrs) 52 mg intrauterine device 1 device intrauterine ONCE Qty: 1 0RF Patient Comments: in place Rx Instructions: as a single dose Systane Complete 0.6 % drops 1 drp ophthalmic (eye) DAILY PRN metoprolol tartrate 50 mg tablet 50 mg PO BID Adult 50 Plus Probiotic 4 billion cell capsule See Rx Instructions .ROUTE .COMPLEX PRN Rx Instructions: as needed amlodipine 10 mg tablet 10 mg PO HS diclofenac sodium 1 % gel 2 g topical QID Rx Instructions: apply to single elbow, wrist or hand; for hand includes palm/fingers/back of hand mupirocin 2 % ointment 1 applic topical BID ketoconazole 2 % cream 1 applic topical DAILY famotidine 10 mg tablet 10 mg PO DAILY lisinopril 10 mg tablet 10 mg PO DAILY cholecalciferol (vitamin D3) 25 mcg (1,000 unit) capsule 25 mcg PO DAILY tramadol 50 mg tablet 50 mg PO Q6H PRN topiramate 50 mg tablet 100 mg PO BID epinephrine 0.3 mg/0.3 mL auto-injector 0.3 mg IM ONCE Rx Instructions: as a single dose; may repeat once magnesium oxide 400 mg magnesium capsule 400 mg PO DAILY omeprazole 20 mg capsule,delayed release(DR/EC) 20 mg PO DAILY Probiotic (B. coagulans) 10 billion cell capsule,delayed release(DR/EC) 10 cell PO DAILY prazosin 1 mg capsule 2 mg PO HS acetaminophen 500 mg tablet 1,000 mg PO TID Qty: 90 0RF ibuprofen 600 mg tablet 600 mg PO TID PRN (Reason: pain) Qty: 90 0RF acetylcysteine [NAC] 600 mg capsule 800 mg PO BID gabapentin 800 mg tablet 400 mg PO TID Rx Instructions: 800 QAM, 400 afternoon, 800 HS Discharge Instructions Stand Alone Forms: Kindra Temple Tunnel Release Referrals: Jeevan Arguelles MD [ [facility] STAFF PHYSICIAN] - Activity:: Activity as Tolerated Remove Dressings/Wound Care:: 48 hours Shower/Bathe:: 48 hours Diet:: As Tolerated Discharge Orders Discharge Orders: Discharge Order (Routine); Ordered 10/04/24 Ordered By: Erik Gardner DS: Diagnosis Discharge Diagnosis (1) Left carpal tunnel syndrome: Status: Acute
[2024-10-04] MEDS: ceFAZolin 2 GM/50 ML BAG IVPB (07:25)
[2024-10-04] MEDS: Lidocaine 1% Pres-Free W/EPI 1/200,000 10 ML VIAL (07:35)
[2024-10-04 07:46] VITALS: BP 88/58; PULSE 67; RESP 18; TEMP 35.9; O2SAT 95
--- NOTE | 2024-10-04 07:47 | W.PM.OP ---
Operative Note Operative Note PRE-OP DIAGNOSIS: Left Carpal Tunnel Syndrome POST-OP DIAGNOSIS: same PROCEDURE: Left Endoscopic Carpal Tunnel Release SURGEON: Jeevan Arguelles ANESTHESIA TYPE: General:No Airway Refer to Anesthesia Record ESTIMATED BLOOD LOSS: 0 PATHOLOGY: none sent TOURNIQUET TIME: 3 COMPLICATIONS: None Patient was transported to: same day Patient's condition: stable Indications: I have seen Viktoriya in clinic for symptoms of carpal tunnel syndrome. The numbness, tingling, and pain limited function. Clinical exam findings with nerve conduction tests confirmed the diagnosis of carpal tunnel syndrome. Nonoperative measures such as bracing, time, activity modifications had been tried but disability and pain persisted. She had a successful carpal tunnel release on the right side and thus I offered left carpal tunnel release. I discussed carpal tunnel release with the patient. I reviewed the risks of the procedure to include, but not limited to, bleeding, infection, pain, stiffness, incomplete release, damage to nerves or vessels, persistent numbness, recurrence. Despite these risks, the patient elected to proceed. Findings: There was tightened carpal tunnel. This was dilated and released successfully with the endoscopic with increased space within the tunnel. The antebrachial fascia was released proximally freeing the median nerve at the wrist. Procedure Description: Viktoriya was greeted in the preoperative holding area where the correct side was identified and marked. The consent was reviewed with the patient and signed. The history and physical was updated. All questions were answered. She was taken back to the operating room. The patient was placed into the supine position on the operating room table with the left arm on an arm board. A nonsterile tourniquet was placed high onto the arm. All bony prominences were well padded. Prophylactic antibiotics in the form of Cefazolin were administered. The left arm was then prepped with Chloraprep and draped in a standard fashion with stockinette and extremity drape. A timeout to confirm correct identity, side and site, procedure, allergies, anesthesia, and medical concerns was performed. The surgical site was marked in the volar wrist creases in line with the radial border of the fourth ray. This area was anesthetized with approximately 6cc of 1% Lidocaine. The limb was then exsanguinated with an Esmarch. The skin was incised with a 15 blade, approximately 1cm. The skin only was cut and the deeper tissue was dissected bluntly with a tenotomy scissor, avoiding passing nerve and venous structures. The fascia was penetrated and opened bluntly. A two-prong skin hook was placed under this proximal fascial edge. A series of hamate finders were used to identify and dilate the carpal tunnel. Synovial elevator was used to free synovial attachments to the underside of the transverse carpal ligament. My thumb was kept in the palm to robi the distal extent of the carpal tunnel and correctly position the hand. The Microaire endoscope was inserted without difficulty and without resistance. Excellent visualization showed horizontally running fibers of the transverse carpal ligament (TCL). The distal extent of the TCL was visualized and the end of the scope palpated with the thumb. The blade was elevated and withdrawn from distal to proximal. The TCL was split into two flaps. The endoscope was reinserted to confirm complete release and any remnant ligament was incised. The scope was withdrawn and the proximal aspect of the carpal tunnel was grossly inspected and appeared release with the median nerve visible. The antebrachial fascia at the level of the wrist was then freed from the overlying skin and then the underlying median nerve with blunt dissection. This was transected longitudinally for about 3cm proximal to the wrist incision. The wound was then irrigated with easy flow of irrigant distally and proximally. The incision was closed with a single 4-0 Nylon suture. The wound was dressed with Xeroform, Gauze, Kerlix and Christiano. The tourniquet was deflated with the initial dressing and held with some pressure. Blood flow returned easily to all digits with capillary refill less than 2 seconds. Suture was removed from the right hand. The patient tolerated the procedure well and was returned to the Same Day Surgery area in a stable condition suffering no known complication. Date of Procedure: 10/04/24
[2024-10-04 08:17] VITALS: BP 92/66; PULSE 71; RESP 18; TEMP 36.2; O2SAT 94
--- NOTE | 2024-10-04 08:57 | W.ANESPOSTOP ---
Postoperative Evaluation Date, Time and Location Date Performed: 10/04/24 Time Performed: : Patient Location: Day Surgery Unit Vital Signs Most Recent Imported Vital Signs: Most Recent Vital Signs Temp Pulse Resp BP Pulse Ox 36.2 C L 71 18 92/66 L 94 10/04/24 08:17 10/04/24 08:17 10/04/24 08:17 10/04/24 08:17 10/04/24 08:17 Pain Score Most Recent Pain Score: Most Recent Pain Score Pain Level 0 10/04/24 08:17 Assessment Mental Status: Awake (Alert & Oriented to Patient Baseline) Airway and Respiratory Function: Patent airway with normal (patient baseline) respiratory exam Cardiovascular Function: Hemodynamically Stable Hydration Status: Adequately Hydrated Nausea & Vomiting: No Nausea or Vomiting Pain: Pain is tolerable per patient Peripheral Nerve Block: Patient did not receive a nerve block Teaching Patient Teaching: Discussed Safe Use of Pain Medication Given Recent Anesthesia
== END 2024-10-04 08:41 | disposition home or self-care (01) ==
PROVIDERS: PCP Family Medicine; Visit Provider Student in an Organized Health Care Education/Training Program
PROC: 01N54ZZ Release Median Nerve, Percutaneous Endoscopic Approach (ICD-10-PCS; CPT 29848; principal; 2024-10-04 07:30)
DX: G56.02 Carpal tunnel syndrome, left upper limb (principal)
CPT/HCPCS: 29848; 00123; 81025; 96127; J0690; J2003; J2004; J2250; J2405; J2704; J3010

== ENCOUNTER 2024-10-09 02:49 | Outpatient (CLI) | payer MEDICAID, SELFPAY ==
--- NOTE | 2024-10-09 | DI.MAMMO_ITS ---
Exam(s) MAMMO SCREENING EXAM: MAMMO SCREENING CLINICAL HISTORY: Z12.31 Screening TECHNIQUE: Mammograms were interpreted according to the usual protocol including computer analysis w [employer] CAD system, tomosynthesis and C-view imaging. COMPARISON: 2019 and 2021 FINDINGS: The breasts are composed of scattered fibroglandular densities, Breast Density category B. No suspicious masses or suspicious microcalcifications are seen. No skin thickening or abnormal axillary lymph nodes are seen. There has been no significant change from prior exams. IMPRESSION: BI-RADS Category 1, Negative mammogram Yearly screening mammography is recommended. Breast Density - Category B, scattered fibroglandular densities. Breast density Category C or D implies that the patient has dense breast tissue. Dense breast tissue can make it harder to find cancer on a mammogram. Dense breast tissue is also associated with an incr eased risk of breast cancer. This information about the result of the mammogram report was provided to the patient to raise their awareness. Use this report when you speak with the patient about their risks for breast cancer, which includes their family history. At that time, you may recommend additional screening tests (Ultrasoun d or MRI) as these tests may add significant information. A negative radiographic report should not delay biopsy if a dominant or clinically suspicious mass is present. Up to ten percent of cancers are not identified on mammography. A negative report may reinforce clinical impression. Adenosis and dense breasts may obscure an underlying neoplasm. False positive reports average 6 to 10%. Patient will receive a letter notifying them of these results.
== END 2024-10-09 03:09 ==
LOC: DI 02:49
PROVIDERS: PCP Family Medicine; Visit Provider Family Medicine
DX: Z12.31 Encounter for screening mammogram for malignant neoplasm of breast (principal)
CPT/HCPCS: 77063; 77067

== ENCOUNTER 2025-02-28 13:00 | Outpatient (REF) | payer MEDICAID, SELFPAY | END 2025-02-28 13:01 | disposition home or self-care (01) | LOC: NCHCN 13:00 | PROVIDERS: PCP Family Medicine; Visit Provider Family Medicine | DX: R31.0 Gross hematuria (principal) | CPT/HCPCS: 87086 ==